=== PATIENT | male | born 1950 | race Caucasian/White ===

== ENCOUNTER → 2017-08-09 13:35 | Outpatient (CLI) | payer MEDICARE, OTHER, SELFPAY ==
--- NOTE | 2017-08-09 13:40 | RAD_ITS ---
STUDY: X-RAY - LUMBOSACRAL SPINE REASON FOR EXAM: Male, 67 years old. Low back pain TECHNIQUE: 7 view(s) of the lumbosacral spine were obtained. COMPARISON: 03/02/2017 FINDINGS: Normal lumbar lordosis. There is no substantial scoliosis. There is normal alignment of the vertebrae. There is multilevel endplate spondylosis of the lumbar vertebrae. There is multi-level degenerative disc disease with multi-level disc space narrowing. There is no subluxation with flexion and extension views. Normal bilateral sacral ala, sacroiliac joints, and visualized sacrum. There is mild atherosclerotic calcification of the abdominal aorta. RAD/L/S Spine Comp/w Bending Views IMPRESSION: Diffuse degenerative changes. No acute bony abnormality. Electronically Signed: Ej Brown DO at 13:47 EDT Tel , Service support ,
== END ==
PROVIDERS: Family Provider Family Medicine; PCP Family Medicine; Visit Provider Orthopaedic Surgery
DX: M54.5 Low back pain (principal)
CPT/HCPCS: 72114

== ENCOUNTER 2017-12-27 06:16 | Day surgery (SDC) | payer MEDICARE, SELFPAY ==
[2017-12-27 06:45] VITALS: BP 138/89; PULSE 77; RESP 16; TEMP 36.4; O2SAT 99; BMI 22.8
--- NOTE | 2017-12-27 08:00 | RAD_ITS ---
STUDY: X-RAY - LUMBAR SPINE REASON FOR EXAM: Male, 67 years old. Joey lumbar decompression. TECHNIQUE: 4 coned-down intraoperative view(s) of the lumbar spine were obtained. COMPARISON: None FINDINGS: The localization apparatus is overlying the posterior aspect of the L5-S1 level. RAD/L/S Spine Min 4 Views IMPRESSION: Localization device is seen along the dorsal aspect of the L5-S1 disc. Electronically Signed: Man Alfredo MD at 13:12 EDT Tel [phone], Service support ,
[2017-12-27] MEDS: Cefazolin 2 GM in 0.9% Normal Saline 100 ML IV (08:21)
--- NOTE | 2017-12-27 09:56 | PCM.IMDPSTOP ---
Problem List (1) Lumbar radiculopathy Status: Acute Immediate Post-Op Note Date of Procedure: 12/27/17 Primary Surgeon/Physician: Kira Beltrán rinkman: Mayur Monte Pre-Operative Diagnosis: Left L5-S1 lumbar radiculopathy Post-Operative Diagnosis: Left L5-S1 lumbar radiculopathy Surgery/Procedure Performed:: Left L5-S1 microdecompression Description of Surgical Findings:: Left L5-S1 lateral recess stenosis Estimated Blood Loss: minimal Specimen's removed: Left L5-S1 ligamentum flavum Drains: none Type of Anesthesia:: General - Admit VTE Documentation VTE Present on Admission: Yes VTE Mechan Device Prophylaxis: SCD's VTE Pharm Prophylaxis ordered?: No Reason prophylaxis not ordered:: Treatment Not Indicated
--- NOTE | 2017-12-27 10:00 | OP.PN_ITS ---
Problem List (1) Lumbar radiculopathy Status: Acute Immediate Post-Op Note Date of Procedure: 12/27/17 Primary Surgeon/Physician: Kira Beltrán outsole beveler: Mayur Monte Pre-Operative Diagnosis: Left L5-S1 lumbar radiculopathy Post-Operative Diagnosis: Left L5-S1 lumbar radiculopathy Surgery/Procedure Performed:: Left L5-S1 microdecompression Description of Surgical Findings:: Left L5-S1 lateral recess stenosis Estimated Blood Loss: minimal Specimen's removed: Left L5-S1 ligamentum flavum Drains: none Type of Anesthesia:: General - Admit VTE Documentation VTE Present on Admission: Yes VTE Mechan Device Prophylaxis: SCD's VTE Pharm Prophylaxis ordered?: No Reason prophylaxis not ordered:: Treatment Not Indicated
--- NOTE | 2017-12-27 10:00 | PCM.OP.BLANK ---
Problem List (1) Lumbar radiculopathy Status: Acute Operative Report Date of Procedure: 12/27/17 Operative Report DATE PERFORMED: 12/27/2017 PREOPERATIVE DIAGNOSIS: Left L5-S1 paracentral disk protrusion with left S1 radiculopathy. POSTOPERATIVE DIAGNOSIS: Left L5-S1 paracentral disk protrusion with left S1 radiculopathy. PROCEDURES: 1. Left L5-S1 microdecompression. 2. Use of intraoperative microscope. 3. Use of intraoperative fluoroscopy. SURGEON: Kira Beltrán MD. INSURANCE APPRAISER: Clifford Monte. ANESTHESIA: Bradford Hutton CRNA. Dr. Granger. ANESTHESIA: General. ESTIMATED BLOOD LOSS: Minimal. DRAINS: None. COMPLICATIONS: None. INDICATIONS FOR PROCEDURE: Mr. Skinner is a 67-year-old male, who presents with back pain and left S1 radiculopathy. His preoperative imaging demonstrated a left L5-S1 paracentral disk protrusion with ligamentum flavum hypertrophy and left S1 lateral recess stenosis. He has failed nonoperative treatment to include physical therapy, epidural steroid injections, and medications. Given he has been refractory to conservative treatment and is significantly affected in his quality of life, a left L5-S1 microdecompression was recommended. The patient agreed to comply with the treatment plan formulated. DESCRIPTION OF PROCEDURE: The patient was correctly identified as Clifford Skinner in the preoperative holding area. Consent was verified. All questions were answered. The risks and benefits of the procedure including, but not limited to pain, infection, bleeding, failure of the operation, need for reoperation, damage to nerve, tendon, vessel, muscle; risk of anesthesia, risk of durotomy, reherniation, risk of paralysis, instability, continued pain, DVT/PE, and blindness were discussed in detail. The patient agreed to comply with the treatment plan. The surgical site was marked. He was taken to operating suite 6, where he underwent general anesthesia by anesthesia colleagues uneventfully. Preoperative antibiotics were initiated. RHIANNA hose and SCDs were placed on bilateral lower extremities for DVT prophylaxis. The patient was then placed prone on the open Elvis frame with a sling. All bony prominences were well padded. His neck was ensured in the neutral position. His back was then sterilely prepped and draped in the usual sterile fashion. A surgical pause was performed to confirm the patient and procedure. The operation was then begun. A spinal needle was placed in the area of L5-S1 interspace. Intraoperative fluoroscopy confirmed the operative level. A midline longitudinal incision was then made down to the subcutaneous tissue to the lumbodorsal fascia. This was cleared off the left-hand side. A full-thickness incision was then made on the left side of midline. A subperiosteal dissection was then performed to dissect the paraspinal musculature off the posterior midline structures. A self retaining retractor was then placed over the L5-S1 interspace. Intraoperative fluoroscopy was obtained to confirm the operative level. The microscope was then brought in for the remainder of the procedure. The inferior edge of the L5 lamina was identified. The ligamentum flavum was lifted up off the leading edge of the S1 lamina and the inferolateral portion of the L5 lamina was resected with a Kerrison rongeur. The ligamentum flavum was then removed. There was noted hypertrophy. The traversing S1 nerve root was noted to be very vascular and hyperemic. The nerve root was then gently retracted medially and a disk protrusion was encountered. The annulus was noted to be intact. A Jamie was then used to trace the shoulder of the S1 nerve root out its foramen with no evidence of residual stenosis. At this point, the decompression was deemed complete. The wound was then thoroughly irrigated. Hemostasis obtained. A Valsalva of 40 mmHg was performed with no evidence of CSF egress. Next, 1% lidocaine with epinephrine mixed with 0.50% Marcaine was placed over the nerve root, approximally 0.5 cc. The fascia was then closed with 0 Vicryl in interrupted [id number] fashion, followed by 2-0 PDS to close the subcutaneous tissue and a running 3-0 Monocryl to close the subcuticular tissue. Dermabond was then applied. A sterile dressing was then placed. The patient tolerated the procedure well. There were no complications. He was then placed supine on the hospital bed, extubated, and transferred to the postanesthesia care unit in stable condition. Needle and sponge counts were correct at the end of the procedure.
[2017-12-27] MEDS: Bupiv/Epi 0.5% Mpf 30 ML Vial (10:05)
--- NOTE | 2017-12-27 10:12 | DCINST_ITS ---
- Discharge Diagnoses Current Active Problems: left lumbar radiculopathy You will use the following diet at home:: Regular Discharge Activity: May not drive while taking narcotic pain medications., - - No bending, twisting or lifting greater than 5-8 pounds for 6 weeks postoperatively. May shower in (days): 5 Weight Bearing Status: Weight bearing as tolerated Lifting Restrictions: no lifting greater than 5-8 pounds Call your doctor if your incision/area has: Continuous Slow Oozing, Sudden Increased Bleeding, Increased Pain/ Swelling, Increased Redness, Foul Smelling Discharge, Swelling at the incision site Call your doctor if you observe: Fever of 101 or Higher, Inability to urinate, Shortness of breath, Swelling in the ankles, Uncontrolled pain Suture Line Care: Avoid Pulling/Pushing, Avoid Pinching/Bending Change Dressing in (Days):: 2 Remove Dressing in (days):: 2 Cleanse incision/area with: Do not get Incision Wet, - - Do not get incision wet for 5 days after surgery. NO soaking for 1 month. change the dressing daily with a dry piece of gauze and tape after postoperative day 2. Allergies/Adverse Reactions: Allergies No Known Allergies Allergy (Verified 12/06/17 08:57) Medications to take at Discharge gabapentin 300 mg capsule 300 mg PO TID 11/29/17 Percocet 5-325 5 - 325 mg PO Q4H PRN PRN MDD 12 12/27/17 Primary Care Physician: Nikhil Coto MD [Primary Care Provider] - Please follow up with your Primary Care Physician in: 2 weeks after surgery for wound check Test Results: Test results from this visit will be discussed in further detail at your follow- up appointment, if applicable. Please Follow Up With: Kira Beltrán MD When: 6 weeks after surgery
--- NOTE | 2017-12-27 10:14 | PCM.DC.SUM ---
Discharge Date and Diagnosis - Problem List Patient Problems: Active and Suspected Problems (Last Updated 08/09/17 @ 14:46 by Eli Phillips) Lumbar radiculopathy (Acute) Date of Admission: 12/27/17 Date of Discharge: 12/27/17 - Primary Discharge Diagnosis lumbar radiculopathy Hospital Course and Treatment Imaging Results: 12/27/17 08:00 O.R. Fluoro for C-Arm [RAD] Routine Spine 1 View Any Level [RAD] Routine Operations: - - left L5-S1 microdecompression Summary of Care Provided: The patient is a 67 year old M [] Discharge Activity: May not drive while taking narcotic pain medications., - - No bending, twisting or lifting greater than 5-8 pounds for 6 weeks postoperatively. May shower in (days): 5 Weight Bearing Status: Weight bearing as tolerated Call your doctor if your incision/area has: Continuous Slow Oozing, Sudden Increased Bleeding, Increased Pain/ Swelling, Increased Redness, Foul Smelling Discharge, Swelling at the incision site Call your doctor if you observe: Fever of 101 or Higher, Inability to urinate, Shortness of breath, Swelling in the ankles, Uncontrolled pain Suture Line Care: Avoid Pulling/Pushing, Avoid Pinching/Bending Change Dressing in (Days):: 2 Remove Dressing in (days):: 2 Cleanse incision/area with: Do not get Incision Wet, - - Do not get incision wet for 5 days after surgery. NO soaking for 1 month. change the dressing daily with a dry piece of gauze and tape after postoperative day 2. Home Medications: Medications to take at Discharge gabapentin 300 mg capsule 300 mg PO TID 11/29/17 Percocet 5-325 5 - 325 mg PO Q4H PRN PRN MDD 12 12/27/17 Primary Care Physician: Nikhil Coto MD [Primary Care Provider] - Please follow up with your Primary Care Physician in: 2 weeks after surgery for wound check Please Follow Up With: Kira Beltrán MD When: 6 weeks after surgery Medical Necessity - Tobacco Use Smoking Status: Former smoker Meaningful Use Info Meaningful Use Diagnoses (Choose all that apply): None applicable
[2017-12-27 10:30] VITALS: BP 138/89; BP 142/89; PULSE 83; RESP 16; TEMP 36.3; O2SAT 94
[2017-12-27 10:43] VITALS: BP 136/90; BP 138/89; PULSE 74; RESP 16; O2SAT 98
[2017-12-27 10:44] VITALS: BP 138/89; BP 141/91; PULSE 72; RESP 16; TEMP 36.9; O2SAT 99
--- NOTE | 2017-12-27 10:50 | PCM.PN.SRG ---
Patient Problems: Active and Suspected Problems (Last Updated 08/09/17 @ 14:46 by Eli Phillips) Lumbar radiculopathy (Acute) Subjective: Patient doing well. Denies pain. Objective: Alert in PACU. 5/5 strength bilateral lower extremities. Negative SLR bilaterally. Dressing clean and dry. - Physical Exam Vital Signs Temp Pulse Resp BP Pulse Ox 98.5 F 72 16 141/91 H 99 12/27/17 10:44 12/27/17 10:44 12/27/17 10:44 12/27/17 10:44 12/27/17 10:44 Oxygen Delivery Method Room Air Weight: 167 lb 15.876 oz Body Mass Index (BMI) 22.8 Intake and Output for Last 24 Hours 12/25/17 12/26/17 12/27/17 23:59 23:59 23:59 Intake Total 1400 / 1400 Balance 1400 / 1400 Laboratory Tests Past 24 Hrs 12/27/17 06:40 Blood Type A POSITIVE Antibody Screen NEGATIVE Medical Necessity - Tobacco Use Smoking Status: Former smoker Assessment/Plan All Active Problems (Last Updated 08/09/17 @ 14:46 by Eli Phillips) Lumbar radiculopathy (Acute) 1. status post left L5-S1 microdecompression today. Patient doing well. Plan for discharge today after voiding, ambulating and tolerating orals. Discharge instructions provided to patient's sister. In compliance with the laws of the [facility] Medical Board of [place], the following conditions have been met for extending the dose or duration of opioid pain medication for the treatment of acute pain. Diagnosis: 1. Lumbar radiculopathy 2. Pain following surgery or procedure (ICD10 G89.18) 7 day limit exceeded due to pain that is expected to persist longer than 7 days. Pathology of pain: post surgical pain 30 MED average exceeded due to: left L5-S1 microdecompression Reason for exceeding the 30 MED average: Pain after orthopedic surgery not yet acceptably controlled by non-opioid medication. This is the lowest dose need for his medical condition. The patient's account was reviewed on the [place] [employer] [facility] Reporting System: [employer]. Their controlled substance medication history was found to be aligned with health and medication history. Patient has had no adverse outcomes with this medication.
--- NOTE | 2017-12-27 10:55 | PN.SURG_ITS ---
Patient Problems: Active and Suspected Problems (Last Updated 08/09/17 @ 14:46 by Eli Phillips) Lumbar radiculopathy (Acute) Subjective: Patient doing well. Denies pain. Objective: Alert in PACU. 5/5 strength bilateral lower extremities. Negative SLR bilaterally. Dressing clean and dry. - Physical Exam Vital Signs Temp Pulse Resp BP Pulse Ox 98.5 F 72 16 141/91 H 99 12/27/17 10:44 12/27/17 10:44 12/27/17 10:44 12/27/17 10:44 12/27/17 10:44 Oxygen Delivery Method Room Air Weight: 167 lb 15.876 oz Body Mass Index (BMI) 22.8 Intake and Output for Last 24 Hours 12/25/17 12/26/17 12/27/17 23:59 23:59 23:59 Intake Total 1400 / 1400 Balance 1400 / 1400 Laboratory Tests Past 24 Hrs 12/27/17 06:40 Blood Type A POSITIVE Antibody Screen NEGATIVE Medical Necessity - Tobacco Use Smoking Status: Former smoker Assessment/Plan All Active Problems (Last Updated 08/09/17 @ 14:46 by Eli Phillips) Lumbar radiculopathy (Acute) 1. status post left L5-S1 microdecompression today. Patient doing well. Plan for discharge today after voiding, ambulating and tolerating orals. Discharge instructions provided to patient's sister. In compliance with the laws of the [facility] Medical Board of [place], the following conditions have been met for extending the dose or duration of opioid pain medication for the treatment of acute pain. Diagnosis: 1. Lumbar radiculopathy 2. Pain following surgery or procedure (ICD10 G89.18) 7 day limit exceeded due to pain that is expected to persist longer than 7 days. Pathology of pain: post surgical pain 30 MED average exceeded due to: left L5-S1 microdecompression Reason for exceeding the 30 MED average: Pain after orthopedic surgery not yet acceptably controlled by non-opioid medication. This is the lowest dose need for his medical condition. The patient's account was reviewed on the [place] [employer] [facility] Reporting System: [employer]. Their controlled substance medication history was found to be aligned with health and medication history. Patient has had no adverse outcomes with this medication.
[2017-12-27 11:35] VITALS: BP 138/89; BP 168/95; PULSE 74; RESP 18; TEMP 36.7; O2SAT 98
== END 2017-12-27 11:45 | disposition home or self-care (01) ==
LOC: SDC 06:17 → AC 06:18
PROVIDERS: Family Provider Family Medicine; PCP Family Medicine; Visit Provider Orthopaedic Surgery
PROC: (CPT 63030; principal; 2017-12-27 07:30)
DX: M51.17 Intervertebral disc disorders with radiculopathy, lumbosacral region (principal); I45.10 Unspecified right bundle-branch block; K21.9 Gastro-esophageal reflux disease without esophagitis; Z87.19 Personal history of other diseases of the digestive system; Z85.46 Personal history of malignant neoplasm of prostate; Z98.1 Arthrodesis status; Z87.891 Personal history of nicotine dependence
CPT/HCPCS: 63047; 63048; 72110; 76000; 86850; 86900; J7120; J2405

== ENCOUNTER → 2018-03-14 12:43 | Outpatient (CLI) | payer MEDICARE, SELFPAY ==
--- NOTE | 2018-03-14 12:45 | RAD_ITS ---
HISTORY: f/u on back surgery 12/27/2017 COMPARISON: 08/09/2017 FINDINGS: XR Spine Lumbar Min 4 Views with flexion and extension 4 views obtained with lateral flexion and extension views. Mild lumbar levoscoliosis, unchanged. Lumbar vertebra are normal in height. No fracture or acute disease. The lumbar disc space heights are preserved. Multilevel mild endplate spurring. With flexion and extension, limited mobility but no abnormal motion or spondylolisthesis. As correlated with previous, lower lumbar facet joint arthritis. Degenerative change with marginal sclerosis of the left SI joint. RAD/L/S Spine Min 4 Views IMPRESSION: 1. No fracture, instability, or acute disease. 2. Lumbar spine mild scoliosis with mild degenerative change. 3. Left SI joint degenerative arthritis. at [id number] Reported and signed by: Juan Ramon Worley MD Electronically Signed: Juan Ramon Worley, at 7:00 EST Tel , Service support ,
--- OUTSIDE RECORDS SUMMARY | 2018-04-30 15:19 | XMS RPT_ITS ---
:1950 Author Organization OHIP Care Team Providers Name Role Phone Kira Beltrán Attending Unavailable Nikhil Coto Referring Unavailable Kira Beltrán Attending Unavailable Nikhil Coto Referring Unavailable Nikhil Coto Primary Care Unavailable Kira Beltrán Attending Unavailable Nikhil Coto Referring Unavailable Kira Beltrán Attending Unavailable Beltrán, Kira Referring Unavailable Furness, Nikhil Primary Care Unavailable Beltrán, Kira Attending Unavailable Beltrán, Kira Referring Unavailable Furness, Nikhil Primary Care Unavailable Beltrán, Kira Attending Unavailable Furness, Nikhil Referring Unavailable Furness, Nikhil Primary Care Unavailable Beltrán, Kira Attending Unavailable Beltrán, Kira Referring Unavailable Furness, Nikhil Primary Care Unavailable Beltrán, Kira Consulting Unavailable Beltrán, Kira Attending Unavailable Beltrán, Kira Referring Unavailable Furness, Nikhil Primary Care Unavailable Beltrán, Kira Attending Unavailable Furness, Nikhil Referring Unavailable Furness, Nikhil Primary Care Unavailable Evans, Eusebio W Attending Unavailable Furness, Nikhil T Primary Care Unavailable Evans, Eusebio Jung Admitting Unavailable Evans, Eusebio Jung Attending Unavailable Furness, Nikhil T Primary Care Unavailable Evans, Eusebio Jung Admitting Unavailable Evans, Eusebio Jung Attending Unavailable Furness, Nikhil T Primary Care Unavailable Evans, Eusebio Jung Attending Unavailable Furness, Nikhil T Primary Care Unavailable Furness, Nikhil T Attending Unavailable Furness, Nikhil T Primary Care Unavailable Furness, Nikhil T Primary Care Unavailable Ricardo, Isaura Gray Admitting Unavailable Ricardo, Isaura Gray Attending Unavailable Furness, Nikhil T Attending Unavailable Furness, Nikhil T Primary Care Unavailable Furness, Nikhil T Admitting Unavailable Furness, Nikhil T Attending Unavailable Furness, Nikhil T Primary Care Unavailable Furness, Nikhil T Admitting Unavailable Furness, Nikhil T Attending Unavailable Furness, Nikhil T Primary Care Unavailable PROBLEMS PROBLEMS DATE TYPE CONDITION / CODE ATTENDING STATUS SOURCE 03/14/2018 Unknown M54.16 - Kira Beltrán Active [place] Radiculopathy, [facility] lumbar region / Hospital M54.16(ICD-10) Repository 08/09/2017 Unknown M54.5 - Low back Kira Beltrán Active [place] pain / [facility] M54.5(ICD-10) Hospital Repository PROCEDURES PROCEDURES No Procedure Records FoundRESULTS RESULTS ORTHOPEDIC VISIT Observed: 03/25/2018 Status: F Source: [place] REPORT 2:40 PM [facility] REPOSITORY [facility] [address] [address] OFFICE VISIT Date of Service: 03/14/18 MR#: [id number] Acct: [id number] Name: ISAURA BUCK Rep #: [id number] : 1950 Provider: Kira Beltrán MD Age/Sex: 67/M Location: [facility] [place] [place].[facility] Status: Signed Intake Intake Visit Reasons: LOW BACK Allergies No Known Allergies Allergy (Verified 01/24/18 13:07) Medications gabapentin 300 mg capsule 300 mg PO TID 11/29/17 [History Confirmed 12/06/17] Percocet 5-325 5 - 325 mg PO Q4H PRN PRN #45 tab MDD 12 12/27/17 [Rx] PFSH Medical History Prostate cancer (Acute) Surgical History H/O cervical spine surgery (Acute) h/o bunionectomy (Acute) Family History Brother Cancer Mother Cancer COPD (chronic obstructive pulmonary disease) Social History Smoking Status: Former smoker HPI LOW BACK: Details: ISAURA BUCK returns today 3 months status post left L5-S1 microdecompression 12/27/2017. He is 80% improved. He has some left lateral calf ache in the morning. He is improved during the day. He has had no physical therapy. He has no back pain. He denies fevers or chills. He did not complete PT due to his daughter needing his vehicle. Ortho Exam Spine Neuro: Yes Straight Leg Raise (negative bilaterally) General: alert, oriented x3 Capillary Refill <2sec: Yes Gait: normal gait, other (heel and toe walk intact) Motor: strength 5/5 throughout Sensory Exam: no sensory deficits noted DTR's: Rt Patellar: 2+, Lt Patellar: 2+, Rt Ankle: 2+, Lt Ankle: 2+ Coordination: tandem gait normal SPINE TESTING CERVICAL THORACIC LUMBAR Braggards: Negative Musculoskeletal General: Yes normal gait Thoracic/Lumbar Spine: thoraco-lumbar ROM normal, surgical scar(s) present, straight leg raise negative bilaterally Strength 0=absent - 5=normal R Hip Flexor (L1-3): 5, L Hip Flexor (L1-3): 5, R Quadriceps (L2-4): 5, L Quadriceps (L2-4): 5, R Anterior Tibialis (L4-5): 5, L Anterior Tibialis (L4-5): 5, R Hamstrings (L5-S1): 5, L Hamstrings (L5-S1): 5, GS (S1): 5, L GS (S1): 5, R Peroneals (S1): 5, L Peroneals (S1): 5 Assessment AND Plan Problems 1. S/P lumbar microdiscectomy Z98.890 Plan Imaging: XR lumbar spine 03/14/2018 reveals diffuse spondylosis without listhesis I/R/P: 1. status post left L5-S1 microdecompression 12/27/2017 2. chronic pain, back Mr. Buck is doing well postop. He will initiate physical therapy when able. He will continue to increase his activities as tolerated. Follow up in 3 months or sooner if issues arise. Plan of care discussed. All questions answered. He is in understanding. Orders Orders: Coding Level of Care Code Off vis,est,level 4 Diagnoses S/P lumbar microdiscectomy Z98.890 03/25/18 1440 <Electronically signed by Kira Beltrán MD> Date Kira Beltrán MD Cosigner Signature: Date (if applicable) CC: Jane Hicks MD L/S SPINE MIN 4 Observed: 03/14/2018 Status: F Source: [place] VIEWS 12:45 PM [facility] REPOSITORY [facility] Imaging Services [address] [place] [address] L/S Spine Min 4 Views MR#: [id number] Acct: [id number] Name: ISAURA BUCK Rep #: [id number] : 1950 M 67 From: Juan Ramon Worley MD PCP: Nikhil Coto MD Status: REG CLI Study: L/S Spine Min 4 Views Date of Exam: 03/14/18 Exam# [id number] Ordering Dr: Kira Beltrán MD HISTORY: f/u on back surgery 12/27/2017 COMPARISON: 08/09/2017 FINDINGS: XR Spine Lumbar Min 4 Views with flexion and extension 4 views obtained with lateral flexion and extension views. Mild lumbar levoscoliosis, unchanged. Lumbar vertebra are normal in height. No fracture or acute disease. The lumbar disc space heights are preserved. Multilevel mild endplate spurring. With flexion and extension, limited mobility but no abnormal motion or spondylolisthesis. As correlated with previous, lower lumbar facet joint arthritis. Degenerative change with marginal sclerosis of the left SI joint. RAD/L/S Spine Min 4 Views IMPRESSION: 1. No fracture, instability, or acute disease. 2. Lumbar spine mild scoliosis with mild degenerative change. 3. Left SI joint degenerative arthritis. at [id number] Reported and signed by: Juan Ramon Worley MD Electronically Signed: Juan Ramon Worley, at 7:00 EST Tel , Service support , CC: Kira Beltrán MD; Nikhil Coto MD Director Institution: Signed ORTHOPEDIC VISIT Observed: 01/29/2018 Status: F Source: [place] REPORT 1:59 PM [facility] REPOSITORY [facility] [address] [place] [address] OFFICE VISIT Date of Service: 01/24/18 MR#: [id number] Acct: [id number] Name: ISAURA BUCK Rep #: [id number] : 1950 Provider: Kira Beltrán MD Age/Sex: 67/M [place] [facility] [place] Signed Intake Intake Visit Reasons: low back Allergies No Known Allergies Allergy (Verified 01/24/18 13:07) Medications gabapentin 300 mg capsule 300 mg PO TID 11/29/17 [History Confirmed 12/06/17] Percocet 5-325 5 - 325 mg PO Q4H PRN PRN #45 tab MDD 12 12/27/17 [Rx] PFSH Medical History Prostate cancer (Acute) Surgical History H/O cervical spine surgery (Acute) h/o bunionectomy (Acute) Family History Brother Cancer Mother Cancer COPD (chronic obstructive pulmonary disease) Social History Smoking Status: Former smoker HPI low back: Details: ISAURA BUCK returns today in follow up 6 weeks s/p left L5-S1 microdecompression dos 12/27/17. Patient states that he is doing well and has minimal pain. He has achiness in his back at times. Patient is taking vicodin for chronic pain, but he takes that mostly for his headaches. Patient notes that his radicular pain into his left leg has improved. He has the radiating pain into his calf at times. He feels 95% improved from preop. He denies fevers or chills or bowel or bladder issues. Denies numbness, tingling or other associated symptoms. ROS Const Reports system reviewed and no additional complaints, except as docu Eyes Reports system reviewed and no additional complaints, except as docu ENT Reports system reviewed and no additional complaints, except as docu Card Reports system reviewed and no additional complaints, except as docu Resp Reports system reviewed and no additional complaints, except as docu GI Reports system reviewed and no additional complaints, except as docu Reports system reviewed and no additional complaints, except as docu Musc Reports back pain Skin/Breast Reports system reviewed and no additional complaints, except as docu Neuro Yes system reviewed and no additional complaints, except as docu Psych Reports system reviewed and no additional complaints, except as docu Endo Reports system reviewed and no additional complaints, except as docu Ortho Exam Spine Neuro: Yes Straight Leg Raise (negative bilaterally) General: alert, oriented x3 Skin: Yes healed Capillary Refill <2sec: Yes Gait: normal gait, other (heel and toe walk) Motor: strength 5/5 throughout Sensory Exam: no sensory deficits noted DTR's: Rt Patellar: 2+, Lt Patellar: 2+, Rt Ankle: 2+, Lt Ankle: 2+ Plantar Reflexes: Downgoing: bilateral Coordination: tandem gait normal SPINE TESTING CERVICAL THORACIC LUMBAR SLR: Negative Musculoskeletal General: Yes normal gait Thoracic/Lumbar Spine: straight leg raise negative bilaterally, thoraco-lumbar ROM limited Strength 0=absent - 5=normal R Hip Flexor (L1-3): 5, L Hip Flexor (L1-3): 5, R Quadriceps (L2-4): 5, L Quadriceps (L2-4): 5, R Anterior Tibialis (L4-5): 5, L Anterior Tibialis (L4-5): 5, R Hamstrings (L5-S1): 5, L Hamstrings (L5-S1): 5, GS (S1): 5, L GS (S1): 5, R Peroneals (S1): 5, L Peroneals (S1): 5 Assessment AND Plan Problems 1. S/P laminectomy Z98.890 Plan I/R/P: 1. status post left L5-S1 microdecompression 12/27/2017 2. chronic pain Mr. Buck is doing well after surgery. At this time, will initiate physical therapy. He may gradually increase his activities as tolerated. Follow up in 6 weeks or sooner if issues arise. Plan of care discussed. All questions answered. He is in understanding. Coding Level of Care Code Global Post Op Diagnoses S/P laminectomy Z98.890 01/29/18 1359 <Electronically signed by Kira Beltrán MD> Date Kira Beltrán MD Cosigner Signature: Date (if applicable) CC: Jane Hicks MD OPERATIVE REPORT Observed: 12/27/2017 Status: F Source: [place] 8:42 PM [facility] REPOSITORY [facility] Medical Records Department [address] [place] [id number] Operative Report 12/27/17 1000 MR#: [id number] Acct: [id number] Name: ISAURA BUCK Rep #: [id number] : 1950 67 From: Kira Beltrán MD PCP: Nikhil Coto MD Status: [facility] Location: [facility] [place] ADDENDUM by Kira Beltrán MD on 12/27/17 at 2042 Code Visit ADDENDUM: Please note a left L5-S1 medial facetectomy and foraminotomy was performed additionally. 12/27/172041 <Electronically signed by Kira Beltrán MD> Date Kira Beltrán MD cc: Kira Beltrán MD; Nikhil Coto MD * Signed Problem List (1) Lumbar radiculopathy Status: Acute Operative Report Date of Procedure: 12/27/17 Operative Report DATE PERFORMED: 12/27/2017 PREOPERATIVE DIAGNOSIS: Left L5-S1 paracentral disk protrusion with left S1 radiculopathy. POSTOPERATIVE DIAGNOSIS: Left L5-S1 paracentral disk protrusion with left S1 radiculopathy. PROCEDURES: 1. Left L5-S1 microdecompression. 2. Use of intraoperative microscope. 3. Use of intraoperative fluoroscopy. SURGEON: Kira Beltrán MD. POOL TABLE OPERATOR: Isaura Monte. ANESTHESIA: Bradford Hutton CRNA. Dr. Granger. ANESTHESIA: General. ESTIMATED BLOOD LOSS: Minimal. DRAINS: None. COMPLICATIONS: None. INDICATIONS FOR PROCEDURE: Mr. Buck is a 67-year-old male, who presents with back pain and left S1 radiculopathy. His preoperative imaging demonstrated a left L5-S1 paracentral disk protrusion with ligamentum flavum hypertrophy and left S1 lateral recess stenosis. He has failed nonoperative treatment to include physical therapy, epidural steroid injections, and medications. Given he has been refractory to conservative treatment and is significantly affected in his quality of life, a left L5-S1 microdecompression was recommended. The patient agreed to comply with the treatment plan formulated. DESCRIPTION OF PROCEDURE: The patient was correctly identified as Isaura Buck in the preoperative holding area. Consent was verified. All questions were answered. The risks and benefits of the procedure including, but not limited to pain, infection, bleeding, failure of the operation, need for reoperation, damage to nerve, tendon, vessel, muscle; risk of anesthesia, risk of durotomy, reherniation, risk of paralysis, instability, continued pain, DVT/PE, and blindness were discussed in detail. The patient agreed to comply with the treatment plan. The surgical site was marked. He was taken to operating suite 6, where he underwent general anesthesia by anesthesia colleagues uneventfully. Preoperative antibiotics were initiated. RHIANNA hose and SCDs were placed on bilateral lower extremities for DVT prophylaxis. The patient was then placed prone on the open Elvis frame with a sling. All bony prominences were well padded. His neck was ensured in the neutral position. His back was then sterilely prepped and draped in the usual sterile fashion. A surgical pause was performed to confirm the patient and procedure. The operation was then begun. A spinal needle was placed in the area of L5-S1 interspace. Intraoperative fluoroscopy confirmed the operative level. A midline longitudinal incision was then made down to the subcutaneous tissue to the lumbodorsal fascia. This was cleared off the left-hand side. A full-thickness incision was then made on the left side of midline. A subperiosteal dissection was then performed to dissect the paraspinal musculature off the posterior midline structures. A self retaining retractor was then placed over the L5-S1 interspace. Intraoperative fluoroscopy was obtained to confirm the operative level. The microscope was then brought in for the remainder of the procedure. The inferior edge of the L5 lamina was identified. The ligamentum flavum was lifted up off the leading edge of the S1 lamina and the inferolateral portion of the L5 lamina was resected with a Kerrison rongeur. The ligamentum flavum was then removed. There was noted hypertrophy. The traversing S1 nerve root was noted to be very vascular and hyperemic. The nerve root was then gently retracted medially and a disk protrusion was encountered. The annulus was noted to be intact. A [place] was then used to trace the shoulder of the S1 nerve root out its foramen with no evidence of residual stenosis. At this point, the decompression was deemed complete. The wound was then thoroughly irrigated. Hemostasis obtained. A Valsalva of 40 mmHg was performed with no evidence of CSF egress. Next, 1% lidocaine with epinephrine mixed with 0.50% Marcaine was placed over the nerve root, approximally 0.5 cc. The fascia was then closed with 0 Vicryl in interrupted [id number] fashion, followed by 2-0 PDS to close the subcutaneous tissue and a running 3-0 Monocryl to close the subcuticular tissue. Dermabond was then applied. A sterile dressing was then placed. The patient tolerated the procedure well. There were no complications. He was then placed supine on the hospital bed, extubated, and transferred to the postanesthesia care unit in stable condition. Needle and sponge counts were correct at the end of the procedure. 12/27/17 1007 <Electronically signed by Kira Beltrán MD> Date Kira Beltrán MD CC: Kira Beltrán MD; Nikhil Coto MD Signed DISCHARGE SUMMARY Observed: 12/27/2017 Status: F Source: [place] 10:16 AM [facility] REPOSITORY [facility] Medical Records Department [address] [place] [address] Discharge Summary 12/27/17 1014 MR#: [id number] Acct: [id number] Name: ISAURA BUCK Rep #: [id number] : 1950 67 From: Kira Beltrán MD PCP: Nikhil Coto MD Status: [facility] Y Location: [place] [address] Discharge Date and Diagnosis - Problem List Patient Problems: Active and Suspected Problems (Last Updated 08/09/17 @ 14:46 by Eli Phillips) Lumbar radiculopathy (Acute) Date of Admission: 12/27/17 Date of Discharge: 12/27/17 - Primary Discharge Diagnosis lumbar radiculopathy Hospital Course and Treatment Imaging Results: 12/27/17 08:00 O.R. Fluoro for C-Arm [RAD] Routine Spine 1 View Any Level [RAD] Routine Operations: - - left L5-S1 microdecompression Summary of Care Provided: The patient is a 67 year old M [] Discharge Activity: May not drive while taking narcotic pain medications., - - No bending, twisting or lifting greater than 5-8 pounds for 6 weeks postoperatively. May shower in (days): 5 Weight Bearing Status: Weight bearing as tolerated Call your doctor if your incision/area has: Continuous Slow Oozing, Sudden Increased Bleeding, Increased Pain/ Swelling, Increased Redness, Foul Smelling Discharge, Swelling at the incision site Call your doctor if you observe: Fever of 101 or Higher, Inability to urinate, Shortness of breath, Swelling in the ankles, Uncontrolled pain Suture Line Care: Avoid Pulling/Pushing, Avoid Pinching/Bending Change Dressing in (Days):: 2 Remove Dressing in (days):: 2 Cleanse incision/area with: Do not get Incision Wet, - - Do not get incision wet for 5 days after surgery. NO soaking for 1 month. change the dressing daily with a dry piece of gauze and tape after postoperative day 2. Home Medications: Medications to take at Discharge gabapentin 300 mg capsule 300 mg PO TID 11/29/17 Percocet 5-325 5 - 325 mg PO Q4H PRN PRN MDD 12 12/27/17 Primary Care Physician: Nikhil Coto MD [Primary Care Provider] - Please follow up with your Primary Care Physician in: 2 weeks after surgery for wound check Please Follow Up With: Kira Beltrán MD When: 6 weeks after surgery Medical Necessity - Tobacco Use Smoking Status: Former smoker Meaningful Use Info Meaningful Use Diagnoses (Choose all that apply): None applicable 12/27/17 1016 <Electronically signed by Kira Beltrán MD> Date Kira Beltrán MD Cosigner Signature (if applicable): Date CC: Kira Beltrán MD; Nikhil Coto MD Signed DISCHARGE INSTRUCTION Observed: 12/27/2017 Status: F Source: [place] 10:14 AM [facility] REPOSITORY [facility] Medical Records Department [address] [place] [address] Instructions for Home/Discharge Instructions 12/27/17 1008 MR#: [id number] Acct: [id number] Name: HEBERISAURA Demetri Rep #: [id number] : 1950 67 From: Kira Beltrán MD PCP: Nikhil Coto MD Status: REG SDC - Discharge Diagnoses Current Active Problems: left lumbar radiculopathy You will use the following diet at home:: Regular Discharge Activity: May not drive while taking narcotic pain medications., - - No bending, twisting or lifting greater than 5-8 pounds for 6 weeks postoperatively. May shower in (days): 5 Weight Bearing Status: Weight bearing as tolerated Lifting Restrictions: no lifting greater than 5-8 pounds Call your doctor if your incision/area has: Continuous Slow Oozing, Sudden Increased Bleeding, Increased Pain/ Swelling, Increased Redness, Foul Smelling Discharge, Swelling at the incision site Call your doctor if you observe: Fever of 101 or Higher, Inability to urinate, Shortness of breath, Swelling in the ankles, Uncontrolled pain Suture Line Care: Avoid Pulling/Pushing, Avoid Pinching/Bending Change Dressing in (Days):: 2 Remove Dressing in (days):: 2 Cleanse incision/area with: Do not get Incision Wet, - - Do not get incision wet for 5 days after surgery. NO soaking for 1 month. change the dressing daily with a dry piece of gauze and tape after postoperative day 2. Allergies/Adverse Reactions: Allergies No Known Allergies Allergy (Verified 12/06/17 08:57) Medications to take at Discharge gabapentin 300 mg capsule 300 mg PO TID 11/29/17 Percocet 5-325 5 - 325 mg PO Q4H PRN PRN MDD 12 12/27/17 Primary Care Physician: Nikhil Coto MD [Primary Care Provider] - Please follow up with your Primary Care Physician in: 2 weeks after surgery for wound check Test Results: Test results from this visit will be discussed in further detail at your follow-up appointment, if applicable. Please Follow Up With: Kira Beltrán MD When: 6 weeks after surgery 12/27/17 1014 <Electronically signed by Kira Beltrán MD> Date Kira Beltrán MD CC: Nikhil Coto MD TYPE AND SCREEN Collected: 12/27/2017 Status: F Source: [place] 6:40 AM [facility] REPOSITORY Order Comment: Reason for Type AND Screen/Red Cells: SURGERY TYPE CODE TESTS RESULT OUT OF RANGE REFERENCE UNITS LAB B10.0800 A Normal BLOOD TYPE GEL POSITIVE LAB B100.4000 Normal Antibody NEGATIVE Screen Performed By: #### B101.7450 #### [facility] [address] [place], [address] L/S SPINE MIN 4 Observed: 12/26/2017 Status: F Source: [place] VIEWS 11:17 PM [facility] REPOSITORY [facility] Imaging Services [address] [place] [address] L/S Spine Min 4 Views MR#: [id number] Acct: [id number] Name: ISAURA BUCK Rep #: [id number] : 1950 M 67 From: Man Alfredo MD PCP: Nikhil Coto MD Status: [facility] Study: L/S Spine Min 4 Views Date of Exam: 12/27/17 Exam# [id number] Ordering Dr: Kira Beltrán MD STUDY: X-RAY - LUMBAR SPINE REASON FOR EXAM: Male, 67 years old. Joey lumbar decompression. TECHNIQUE: 4 coned-down intraoperative view(s) of the lumbar spine were obtained. COMPARISON: None FINDINGS: The localization apparatus is overlying the posterior aspect of the L5-S1 level. RAD/L/S Spine Min 4 Views IMPRESSION: Localization device is seen along the dorsal aspect of the L5-S1 disc. Electronically Signed: Man Alfredo MD at 13:12 EDT Tel [phone], Service support , CC: Kira Beltrán MD; Nikhil Coto MD Director Institution: Signed ORTHOPEDIC VISIT Observed: 12/01/2017 Status: F Source: [place] REPORT 8:16 PM [facility] REPOSITORY [facility] Orthopa[facility]ics AND Sports Medicine [address] [place] [address] [address] [place] [address] OFFICE VISIT Date of Service: 11/29/17 MR#: [id number] Acct: [id number] Name: ISAURA BUCK Rep #: [id number] : 1950 Provider: Kira Beltrán MD Age/Sex: 67/M Location: [facility] [place] [place] [place] Status: Signed Intake Intake Visit Reasons: Low back pain Is patient in pain?: Yes Allergies No Known Allergies Allergy (Verified 11/29/17 14:18) Medications hydrocodone 5 mg-acetaminophen 325 mg tablet 1 tab PO Q6H PRN 08/09/17 [History Confirmed 08/09/17] gabapentin 300 mg capsule 300 mg PO TID 11/29/17 [History Confirmed 11/29/17] PFSH Medical History Prostate cancer (Acute) Surgical History H/O cervical spine surgery (Acute) h/o bunionectomy (Acute) Family History Brother Cancer Mother Cancer COPD (chronic obstructive pulmonary disease) Social History Smoking Status: Former smoker HPI Low back pain: Details: ISAURA BUCK returns today in anticipation for lumbar surgery. He continues to have back pain 20% and left left buttock, posterior thigh and calf and lateral foot pain and paresthesias 80%. Patients pain increases with carrying greater than 10 pounds, in the morning and sitting or car rides. It is improved with standing on flat surfaces, hot tub, and massage. He denies fevers or chills or bowel or bladder issues. He has had no recent lumbar injections. Patient saw Dr Hicks recently and had an injection into his cervical spine. He denies any signs or symptoms of urinary tract infeciton. He denies nicotine use. He takes gabapentin and norco chronically. Ortho Exam Spine Neuro: Yes Straight Leg Raise (negative today bilaterally) and Allan's (negative bilaterally) General: alert, oriented x3 Gait: normal gait, other (able to heel and toe walk) Motor: strength 5/5 throughout Sensory Exam: other (decreased in the left posterior leg) DTR's: Rt Patellar: 2+, Lt Patellar: 2+, Rt Ankle: 2+, Lt Ankle: 1+ Coordination: tandem gait normal SPINE TESTING CERVICAL THORACIC LUMBAR SLR: Negative Musculoskeletal General: Yes normal posture and normal gait Cervical Spine: cervical ROM normal Thoracic/Lumbar Spine: straight leg raise negative bilaterally, paraspinal tenderness, pain with thoraco-lumbar ROM, thoraco-lumbar ROM limited Strength 0=absent - 5=normal R Hip Flexor (L1-3): 5, L Hip Flexor (L1-3): 5, R Quadriceps (L2-4): 5, L Quadriceps (L2-4): 5, R Anterior Tibialis (L4-5): 5, L Anterior Tibialis (L4-5): 5, R Hamstrings (L5-S1): 5, L Hamstrings (L5-S1): 5, GS (S1): 5, L GS (S1): 5, R Peroneals (S1): 5, L Peroneals (S1): 5 Assessment AND Plan 1. Lumbar radiculopathy M54.16 Plan Imaging: XR lumbar spine reveals diffuse spondylosis MRI lumbar spine 03/02/2017 reveals diffuse spondylosis with left L5-S1 lateral recess stenosis and displacement of the left S1 nerve root I/R/P: 1. back pain 2. left leg pain 3. nicotine use, recent quit 4. prostate cancer with radiation seeds 5. history of cervical fusion 03/2013 Mr. Buck presents with back pain and left lumbar radiculopathy in the setting of left L5-S1 lateral recess stenosis secondary to paracentral disc protrusion. He has failed nonoperative treatment, to include physical therapy, epidural steroid injection and medications. Therefore we recommend surgical intervention, to include a left L5-S1 microdecompression. Over 30 minutes was spent in consultation with this patient. Risks, benefits, and alternatives to surgery were discussed. Risks discussed include but are not limited to catastrophic complications of , blindness, risks of anesthesia, blood loss, infection, nerve injury, dural tear, instability, failure to relieve symptoms, worsening of symptoms, need for further surgery, paralysis and DVT/PE. He has been cleared by his primary care physician, Dr. Nikhil Coto, as low risk. All questions answered. The procedure was discussed in detail with the use of plastic models. Consent was signed. The patient verbalized understanding and agreed to comply with the treatment plan formulated. Plan of care discussed. All questions answered. The patient verbalized understanding of the disease process and agreed to the treatment plan formulated for this visit. Coding Level of Care Code Off vis,est,level 4 Diagnoses Lumbar radiculopathy M54.16 12/01/172015 <Electronically signed by Kira Beltrán MD> Date Kira Leigh Ann [facility] Signature: Date (if applicable) CC: Jane Hicks MD; Nikhil Coto MD Observed: 11/22/2017 Status: F Source: [facility] 5:51 PM [facility] REPOSITORY Final Report: No growth Performed By: #### [id number] #### ROSARIO Microbiology Subsection [address] [place] [address] XR CHEST 2 VIEWS Observed: 11/22/2017 Status: F Source: [facility] 4:26 PM [facility] REPOSITORY Exam Date/Time: 11/22/2017 16:29 EDT Reason for Exam: Other (please specify) Report STUDY: XR Chest 2 Views; 11/22/2017 4:29 pm INDICATION: Preop COMPARISON: None. ACCESSION NUMBER(S): [id number] ORDERING CLINICIAN: Nikhil Coto FINDINGS: PA and lateral views of the chest were obtained. No focal infiltrate, pleural effusion or pneumothorax is identified. The cardiac silhouette is within normal limits for size. Mild discogenic degenerative changes are seen throughout the thoracic spine. IMPRESSION: No focal infiltrate or pneumothorax. FINAL REPORT Dictated: 11/23/2017 9:12 am Rosendo De Anda MD Signed (Electronic Signature): 11/23/2017 9:12 am Signed by: Rosendo De Anda MD Technologist: SHIELA CBC W/ AUTO DIFF Collected: 11/22/2017 Status: F Source: [facility] 4:25 PM [facility] REPOSITORY TYPE CODE TESTS RESULT OUT OF RANGE REFERENCE UNITS LAB [id number](L 3.6-11.0 E3/mcL OINC) Normal WBC 3.6 LAB 19018836(L 3.90-6.10 E6/mcL OINC) Normal RBC 4.17 LAB 79507667(L 13.5-18.0 G/DL OINC) Low Hgb 13.2 LAB 65023310(L 42.0-52.0 % OINC) Low Hct 39.4 LAB 83121604(L 11.5-14.5 % OINC) Normal RDW 13.0 LAB 10062578(L 27.0-31.0 pg OINC) High MCH 31.7 LAB 64477660(L 33.0-37.0 G/DL OINC) Normal MCHC 33.6 LAB 78935732(L 78.0-100.0 fL OINC) Normal MCV 94.4 LAB 11461055(L 7.4-11.0 fL OINC) Low MPV 6.6 LAB 65202198(L 130-400 E3/mcL OINC) Normal Platelet 239 Performed By: #### [id number] #### ROSARIO En[facility]quezHemdeandra [facility] [place] [address] AUTO DIFF Collected: 11/22/2017 Status: F Source: [facility] 4:25 PM [facility] REPOSITORY Order Comment: Order Added by Discern Expert. TYPE CODE TESTS RESULT OUT OF RANGE REFERENCE UNITS LAB [id number](L 37.0-75.0 % OINC) Normal Neutro Auto 52.5 LAB 37996326(L 20.0-55.0 % OINC) Normal Lymph Auto 31.1 LAB 18274731(L 0.0-10.0 % OINC) High Barrow Auto 13.4 LAB 94167605(L 0.0-11.0 % OINC) Normal Eos Auto 1.8 LAB 12298192(L 0.0-2.0 % OINC) Normal Basophil Auto 1.2 LAB 81073556(L 1.4-6.5 E3/mcL OINC) Normal Neutro 1.9 Absolute LAB 37587898(L 1.2-3.4 E3/mcL OINC) Low Lymph Absolute 1.1 LAB 83122250(L 0.0-0.7 E3/mcL OINC) Normal Barrow Absolute 0.5 LAB 37689304(L 0.0-0.7 E3/mcL OINC) Normal Eos Absolute 0.1 LAB 31419109(L 0.0-0.2 E3/mcL OINC) Normal Basophil 0.0 Absolute Performed By: #### [id number] #### ROSARIO [employer] [address] [place] [address] PT Collected: 11/22/2017 Status: F Source: [facility] 4:25 PM [facility] REPOSITORY TYPE CODE TESTS RESULT OUT OF RANGE REFERENCE UNITS LAB 20504123(LO 1.0-1.2 INC) Normal INR 1.0 Result Comment: INR Recommended Therapeuptic Ranges: Prophylaxis/treatment of DVT and PE?2.0-3.0 Prevention of systemic embolism?.2.0-3.0 Mechanical prosthetic values?2.5-3.5 CRITICAL VALUES?.>4.0 LAB 00581340(LOINC) 11.6-14.6 second(s) Normal 13.0 PT Performed By: #### [id number] #### ROSARIO Hematology Automated Subsection [address] [place] [address] PTT Collected: 11/22/2017 Status: F Source: [facility] 4:25 PM [facility] REPOSITORY TYPE CODE TESTS RESULT OUT OF RANGE REFERENCE UNITS LAB [id number](LO 23.2-36.4 second(s) INC) High PTT 36.5 Performed By: #### [id number] #### ROSARIO Hematology Automated Subsection [address] [place] [address] PTT CONTROL RATIO Collected: 11/22/2017 Status: F Source: [facility] 4:25 [facility] REPOSITORY Order Comment: Order added by Discern Expert. TYPE CODE TESTS RESULT OUT OF RANGE REFERENCE UNITS LAB 60348884(LO 0.8-1.2 ratio INC) Normal PTT Ratio 1.2 Performed By: #### [id number] #### ROSARIO Hematology Automated Subsection [address] [place] [address] CMP Collected: 11/22/2017 Status: F Source: [facility] 4:25 PM [facility] REPOSITORY TYPE CODE TESTS RESULT OUT OF RANGE REFERENCE UNITS LAB 65474595(L 70-99 mg/dL OINC) High Glucose Lvl 123 LAB 37125737(L 8.4-10.2 mg/dL OINC) Calcium Normal Lvl 9.4 LAB 15025600(L 136-145 mEq/L OINC) Low Sodium Lvl 134 LAB 63135394(L 3.5-5.1 mEq/L OINC) Normal Potassium Lvl 3.6 LAB 60121184(L 98-107 mEq/L OINC) Low Chloride 97 LAB 10924404(L 24.0-30.0 mEq/L OINC) CO2 Normal 25.0 LAB 40758162(L 7-18 mg/dL OINC) BUN Normal 11 LAB 9239592(LO 0.6-1.3 mg/dL INC) Normal Creatinine 0.8 LAB 47775676(L 42-121 Int._Unit/ OINC) L Alk Phos Normal 84 LAB 46845437(L 0.2-1.0 mg/dL OINC) Bili Normal Total 0.8 LAB 21397250(L 3.2-5.0 G/DL OINC) Albumin Normal Lvl 4.0 LAB 24558113(L 6.4-8.3 G/DL OINC) High Total Protein 8.5 LAB 64636311(L 10-40 Int._Unit/ OINC) L ALT Normal 21 LAB 12745522(L 10-42 Int._Unit/ OINC) L AST Normal 32 LAB 79049521(L 5.4-30.0 ratio OINC) Normal BUN/Creat Ratio 13.8 LAB 97263260(L 2.0-4.0 G/DL OINC) High Globulin 4.5 LAB 03000829(L 1.1-1.9 ratio OINC) Low A/G Ratio 0.9 Performed By: #### [id number] #### ROSARIO [employer] [place] [address] EGFR Collected: 11/22/2017 Status: F Source: [facility] 4:25 PM [facility] REPOSITORY Order Comment: Order added by Discern Expert. TYPE CODE TESTS RESULT OUT OF RANGE REFERENCE UNITS LAB 09154721(LO mL/min/1.73 INC) m2 Normal eGFR >60 LAB 81398738(LO mL/min/1.73 INC) m2 Normal eGFR AA >60 Performed By: #### [id number] #### ROSARIO [employer] [address] [place] [address] MRSA BY PCR Collected: 11/22/2017 Status: F Source: [facility] 4:25 PM [facility] REPOSITORY TYPE CODE TESTS RESULT OUT OF RANGE REFERENCE UNITS LAB 209685650(L OINC) Normal MRSA Negative by PCR Result Comment: A negative result does not preclude MRSA/SA nasal colonization. The performance characteristics were not established for patients =< 21 years of age. LAB 185002406(LOINC) Abnormal Positive SA by PCR Result Comment: A negative result does not preclude MRSA/SA nasal colonization. The performance characteristics were not established for patients =< 21 years of age. Performed By: #### [id number] #### ROSARIO Misc Micro SubSection , Observed: 10/30/2017 Status: F Source: [facility] RAPID STREP A 11:57 AM [facility] SCREEN REPOSITORY Final Report: Streptococcus Group A screen negative Performed By: #### [id number] #### ROSARIO Microbiology Subsection [address] [place], [place] [id number] ORTHOPEDIC VISIT Observed: 09/23/2017 Status: F Source: [facility] RE[facility] 5:00 PM [facility] REPOSITORY [facility] [address] [place] [address] OFFICE VISIT Date of Service: 09/13/17 MR#: [id number] Acct: [id number] Name: ISAURA BUCK Rep #: [id number] : 1950 Provider: Kira Beltrán MD Age/Sex: 67/M Location: [facility] [place] [place] Status: Signed Intake Intake Visit Reasons: LOW BACK Is patient in pain?: Yes Allergies No Known Allergies Allergy (Verified 09/13/17 16:03) Medications hydrocodone 5 mg-acetaminophen 325 mg tablet 1 tab PO Q6H PRN 08/09/17 [History Confirmed 08/09/17] PFSH Medical History Prostate cancer (Acute) Surgical History H/O cervical spine surgery (Acute) h/o bunionectomy (Acute) Family History Brother Cancer Mother Cancer COPD (chronic obstructive pulmonary disease) Social History Smoking Status: Current every day smoker tobacco type: cigarettes HPI LOW BACK: Details: ISAURA BUCK is a 67 year old M here today for a followup on his low back pain 20% and left buttock, posterior thigh, calf 80%. He is limiting his ADLs due to pain. Patient is having difficulty sleeping. Patient sees Dr Hicks this coming for a repeat epidural injection. Patient is currently taking norco 5/325mg TID and gabapentin for pain. His pain is worse with carrying greater than 10 pounds, in the morning and when sitting or car ride. It is improved with laying on his back, hot tub and massage. He denies fevers or chills or bowel or bladder issues. He states he stopped nicotine. ROS Const Reports system reviewed and no additional complaints, except as docu Eyes Reports system reviewed and no additional complaints, except as docu ENT Reports system reviewed and no additional complaints, except as docu Card Reports system reviewed and no additional complaints, except as docu Resp Reports system reviewed and no additional complaints, except as docu GI Reports system reviewed and no additional complaints, except as docu Reports system reviewed and no additional complaints, except as docu Musc Reports back pain, Reports radiating pain into limb Skin/Breast Reports system reviewed and no additional complaints, except as docu Neuro Yes system reviewed and no additional complaints, except as docu Psych Reports system reviewed and no additional complaints, except as docu Endo Reports system reviewed and no additional complaints, except as docu Ortho Exam Spine Neuro: Yes Straight Leg Raise (negative bilaterally) and Allan's (negative bilaterally) General: alert, oriented x3 Capillary Refill <2sec: Yes Gait: normal gait, other (heel and toe walk) Motor: strength 5/5 throughout Sensory Exam: no sensory deficits noted DTR's: Rt Patellar: 2+, Lt Patellar: 2+, Rt Ankle: 2+, Lt Ankle: 2+ Coordination: tandem gait normal SPINE TESTING CERVICAL THORACIC LUMBAR SLR: Negative Musculoskeletal General: Yes normal gait Thoracic/Lumbar Spine: lumbar spinal tenderness, thoraco-lumbar ROM limited, other (worse with lumbar extension than flexion) Strength 0=absent - 5=normal R Hip Flexor (L1-3): 5, L Hip Flexor (L1-3): 5, R Quadriceps (L2-4): 5, L Quadriceps (L2-4): 5, R Anterior Tibialis (L4-5): 5, L Anterior Tibialis (L4-5): 5, R Hamstrings (L5-S1): 5, L Hamstrings (L5-S1): 5, GS (S1): 5, L GS (S1): 5, R Peroneals (S1): 5, L Peroneals (S1): 5 Assessment AND Plan Plan Imaging: Xr lumbar spine 08/09/2017 DDD MRI lumbar spine 03/02/2017 diffuse spondylosis with left L5-S1 lateral recess stenosis. I/R/P: 1. back pain 2. left leg pain 3. nicotine use, recently quit 4. prostate cancer with radiation seeds 5. history of cervical fusion 03/2013 Mr. Buck continues to have back and left leg pain, S1 radiculopathy. This patient has exhausted all conservative/nonoperative treatment measures to include physical therapy, epidural steroid injections and medications therefore we will recommend surgical intervention, to include a left L5-S1 microdecompression. Over 30 minutes was spent in consultation with this patient. Risks, benefits and alternatives to surgery were discussed. Risks discussed include but are not limited to catastrophic compliations of and blindness, risks of anesthesia, blood loss, infection, nerve injury, dural tear, reherniation, instability, failture to relief symptoms, worsening of symptoms, adjacent level disease, need for further surgery, paralysis, and DVT/PE. He will need medical clearance from his PCP, Dr. Coto. All questions were answered. The procedure was discussed in detail with the use of plastic models. The patient verbalized understanding and agreed to comply with the treatment plan formulated. Applauded for nicotine cessation. Coding Level of Care Code Off vis,est,level 4 09/23/17 1700 <Electronically signed by Kira Beltrán MD> Date Kira Beltrán MD Cosigner Signature: Date (if applicable) CC: Jane Hicks MD; Nikhil Coto MD ORTHOPEDIC VISIT Observed: 08/13/2017 Status: F Source: [facility] 9:58 PM [facility] REPOSITORY [facility] [address] [place], [place] [id number] OFFICE VISIT Date of Service: 08/09/17 MR#: [id number] Acct: [id number] Name: ISAURA BUCK Rep #: [id number] : 1950 Provider: Kira Beltrán MD Age/Sex: 67/M Location: [facility] [place] [place] Status: Signed Intake Vital Signs08/09/17 Height 6 ft 08/09/17 Weight: 172 lb 08/09/17 Body Mass Index (BMI) 23.3 Intake Visit Reasons: Low back pain Is patient in pain?: Yes Pain scale (1-10): 8 Allergies No Known Allergies Allergy (Unverified 08/09/17 14:44) Medications hydrocodone 5 mg-acetaminophen 325 mg tablet 1 tab PO Q6H PRN 08/09/17 [History Confirmed 08/09/17] PFSH Medical History Prostate cancer (Acute) Surgical History H/O cervical spine surgery (Acute) h/o bunionectomy (Acute) Family History Brother Cancer Mother Cancer COPD (chronic obstructive pulmonary disease) Social History Smoking Status: Current every day smoker tobacco type: cigarettes HPI Low back pain: Details: ISAURA BUCK is a 67 year old RHD M referred by Dr Hicks for low back pain 20% and left buttock, posterior thigh and calf and ankle pain 80%. Patient notes that he has had back pain for over a year. His pain worsened in the winter of 2015 when he was sledding and hit the frozen ground. He complains also of his right groin. He notes that he has a cramp into penis. He has increased pain when he sits for long periods of time, car rides, forward flexion and bending. 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 Patient notes relief in his symptoms when he lays down on his back. Patient has completed multiple sessions of physical therapy which are not helpful. He sees Dr Hicks who gave him a caudal injection on 05/17/17, which helped for 10 days in his leg. He takes norco, 3 pills per day for 6 years for neck pain. This is managed by Dr. Hicks. Patient sees a chiropractor for adjustments which are helpful sometimes. He has had PT. He denies any bowel or bladder issues, difficulty with hand issues, or gait instability. 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 He has had prostate cancer with radiation seeds. No surgery or chemotherapy. He has had a cervical fusion for radiculopathy. He has chronic headaches. He does smoke 2-3 cigarettes per day. He does not drink. ROS Const Reports system reviewed and no additional complaints, except as docu Eyes Reports system reviewed and no additional complaints, except as docu ENT Reports system reviewed and no additional complaints, except as docu Card Reports system reviewed and no additional complaints, except as docu Resp Reports system reviewed and no additional complaints, except as docu GI Reports system reviewed and no additional complaints, except as docu Reports system reviewed and no additional complaints, except as docu Musc Reports back pain, Reports radiating pain into limb Skin/Breast Reports system reviewed and no additional complaints, except as docu Neuro Yes system reviewed and no additional complaints, except as docu Psych Reports system reviewed and no additional complaints, except as docu Endo Reports system reviewed and no additional complaints, except as docu Ortho Exam Spine Neuro: Yes Allan's (negative bilaterally), Straight Leg Raise (discomfort with sitting, neg laying) and Babinski (downgoing) General: alert, oriented x3 Skin: Yes dysraphism (none) Capillary Refill <2sec: Yes Palpable Pulses: 1+ dp/pt pulses Gait: normal gait, other (heel and toe walk) Motor: strength 5/5 throughout Sensory Exam: no sensory deficits noted DTR's: Rt Triceps: 2+, Lt Triceps: 2+, Rt Biceps: 2+, Lt Biceps: 2+, Rt Brachioradialis: 2+, Lt Brachioradialis: 2+, Rt Patellar: 2+, Lt Patellar: 2+, Rt Ankle: 2+, Lt Ankle: 1+ Plantar Reflexes: Downgoing: bilateral Coordination: tandem gait normal, Romberg test normal SPINE TESTING CERVICAL THORACIC LUMBAR Musculoskeletal General: Yes normal gait and normal posture Cervical Spine: cervical ROM normal Thoracic/Lumbar Spine: paraspinal tenderness, pain with thoraco- lumbar ROM, thoraco-lumbar ROM limited Strength 0=absent - 5=normal Deltoid R (C5): 5, Deltoid L (C5): 5, R Bicep (C5-6): 5, L Bicep (C5-6): 5, R Wrist Extensor (C6): 5, L Wrist Extensor (C6): 5, R Tricep (C7): 5, L Tricep (C7): 5, R Finger Flexors (C8): 5, L Finger Flexors (C8): 5 (DIP amputation long finger), R First Dorsal Interossei (C8): 5, L First Dorsal Interossei (C8): 5, R Hip Flexor (L1-3): 5, L Hip Flexor (L1-3): 5, R Quadriceps (L2-4): 5, L Quadriceps (L2-4): 5, R Anterior Tibialis (L4- 5): 5, L Anterior Tibialis (L4-5): 5, R Hamstrings (L5-S1): 5, L Hamstrings (L5-S1): 5, GS (S1): 5, L GS (S1): 5, R Peroneals (S1): 5, L Peroneals (S1): 5 Assessment AND Plan 1. Chronic bilateral low back pain with left-sided sciatica M54.42; G89.29 2. Lumbar radiculopathy M54.16 Plan Imaging: XR lumbar spine reveals diffuse spondylosis MRI lumbar spine 03/02/2017 reveals diffuse spondylosis with left L5-S1 lateral recess stenosis and displacement of the left S1 nerve root I/R/P: 1. back pain 2. left leg pain 3. nicotine use 4. prostate cancer with radiation seeds 5. history of cervical fusion 03/2013 Mr. Buck presents with back pain and left lumbar radiculopathy. The natural history and course of the symptomatology of lumbar radiculopathy was discussed in detail with the patient. I answered all questions regarding the mode of onset, pathophysiology, symptoms, imaging findings, treatment options (both non-operative and operative) regarding his diagnosis. He has failed epidural steroid injections, medications and physical therapy. Recommend a left L5-S1 microdecompression at [facility] He would need medical clearance. The patient would like to think about surgery. Prescribed gabapentin in the interim and cunseled on nicotine cessation. He will contact our office when he is ready to proceed. He will need a follow up for consent. Plan of care discussed. All questions answered. The patient verbalized understanding of the disease process and agreed to the treatment plan formulated for this visit. Plan Detail Other Orders Orders: Coding Level of Care Code Off vis,new,level 4 Diagnoses Chronic bilateral low back pain with left-sided sciatica M54.42; G89.29 Chronicity: chronic Back pain laterality: bilateral Sciatica presence: with sciatica Sciatica laterality: sciatica of left side Lumbar radiculopathy M54.16 08/13/17 2158 <Electronically signed by Kira Beltrán MD> Date Kira Beltrán MD Cosigner Signature: Date (if applicable) CC: Jane Hicks MD L/S SPINE COMP/W Observed: 08/09/2017 Status: F Source: [place] [facility]IE[facility] 1:40 PM [facility] REPOSITORY [facility] Imaging Services [address] [place] [place] [address] L/S Spine Comp/w Bending Views MR#: [id number] Acct: [id number] Name: ISAURA BUCK Rep #: [id number] : 1950 M 67 From: Ej Brown DO PCP: Nikhil Coto MD Status: REG CLI Study: L/S Spine Comp/w Bending Views Date of Exam: 08/09/17 Exam# [id number] Ordering Dr: Kira Beltrán MD STUDY: X-RAY - LUMBOSACRAL SPINE REASON FOR EXAM: Male, 67 years old. Low back pain TECHNIQUE: 7 view(s) of the lumbosacral spine were obtained. COMPARISON: 03/02/2017 FINDINGS: Normal lumbar lordosis. There is no substantial scoliosis. There is normal alignment of the vertebrae. There is multilevel endplate spondylosis of the lumbar vertebrae. There is multi-level degenerative disc disease with multi-level disc space narrowing. There is no subluxation with flexion and extension views. Normal bilateral sacral ala, sacroiliac joints, and visualized sacrum. There is mild atherosclerotic calcification of the abdominal aorta. RAD/L/S Spine Comp/w Bending Views IMPRESSION: Diffuse degenerative changes. No acute bony abnormality. Electronically Signed: Ej Brown DO at 13:47 EDT Tel , Service support , CC: Kira Beltrán MD; Nikhil Coto MD Director Institution: Signed PSA TOTAL Collected: 07/26/2017 Status: F Source: [facility] 3:18 PM [facility] REPOSITORY TYPE CODE TESTS RESULT OUT OF RANGE REFERENCE UNITS LAB [id number](LO ng/mL INC) Normal PSA Total 0.24 Result Comment: AGE-SPECIFIC REFERENCE RANGES FOR SERUM PSA REFERENCE RANGE NG/ML AGE ASIANS BLACKS WHITE 40-49 0- 2 0-2 0-2.5 50-59 0- 3 0-4 0-3.5 60-69 0- 4 0-4.5 0-4.5 70-79 0- 5 0-5.5 0-6.5 PSA INCREASES WITH AGE, RACE, AND EJACULATION WITHIN 48 HRS. [facility] VOL24,NO.2, , PG.339 Performed By: #### [id number] #### ROSARIO [employer] [address] [place], [place] [address] ALLERGIES ALLERGIES DATE TYPE / NAME / CODE REACTION SEVERITY SOURCE CODE 01/24/2018 Drug No Known Unknown [place] Allergy/41 Allergies/[id number] Community [id number]([facility](RXNORM) [facility] CT) Repository [employer] [id number] [facility] t/[id number] allergy [facility] 6(SNOMED System CT) Repository Drug/51339 No Known Medication [facility] 1003[facility] All[facility] D CT) System Repository ENCOUNTERS ENCOUNTERS ADMIT/DISCHARGE ACCOUNT NUMBER ADMITTING ENCOUNTER LOCATION SOURCE CLASS 03/14/2018 [id number] Ambulatory [facility] Hospital ing:HPRAD Repository 03/14/2018/03/14/20 [id number] Ambulatory BMSBuilding:B [place] 18 MS.Pending sale to [facility] Repository 01/24/2018/01/25/20 [id number] Ambulatory BMSBuilding:B [place] 18 MS.Pending sale to [facility] Repository 12/27/2017 [id number] Ambulatory BMSBuilding:B [place] MS.CF.Pending sale to [facility] Repository 12/27/2017/12/28/19 [id number] Ambulatory [address] Hospital ing:SDCRoom: Repository AC07 11/29/2017/11/30/19 [id number] Ambulatory BMSBuilding:B [place] 18 MS.Pending sale to [facility] Repository 11/22/2017/11/23/19 [id number] [place], Ambulatory [facility] 18 [facility] HospitalBuild Regional ing:[facility] Repository 11/22/2017/11/23/19 [id number] [facility], Ambulatory Christian Christian 18 Emmalena T HospitalBuild Regional ing:[facility] Repository 11/22/2017/11/23/19 [id number] Ambulatory [facility] Rep[facility] Med AssocRoom: Room 2 11/22/2017 [id number] Ambulatory [address] [place] [address] Repository 11/22/2017 [id number] Ambulatory [address] [place] [address] Repository 11/02/2017/11/03/19 [id number] Ambulatory [facility] [place] Repository Med Assoc 10/30/2017/10/31/19 [id number] Ricardo, Emergency Christian Christian 18 Isaura A HospitalBuild Regional ing:[facility] EDRoom: WR Repository 10/30/2017 [id number] Ambulatory [address] [place] [address] Repository 09/13/2017/09/14/19 [id number] Ambulatory BMSBuilding:B [place] 18 MS.Pending sale to [facility] Repository 08/09/2017 [id number] Ambulatory [facility] Hospital ing:HPRAD Repository 08/09/2017/08/10/19 [id number] Ambulatory BMSBuilding:B [place] 18 MS.LYNNETTE [facility] Hospital Repository 08/08/2017 [id number] Ambulatory [facility] 08/08/2017/08/09/19 [id number] Ambulatory [address] Repository ng:[facility] Room: Room 1 07/26/2017/07/27/19 [id number] Eusebio Evans [address] ing:[facility] Repository 05/09/2017/05/09/19 [id number] Eusebio Evans [address] Repository ng:[facility] Room: Room 2 PAYERS PAYERS ENCOUNTER GUARANTOR PAYER SUBSCRIBER SOURCE 03/14/2018 ISAURA K Primary ISAURA Devi [id number] Insurance:AETNA RADABAUGHDOB: [facility] Number: [id number], [place] [id number] Repository [address]Qye: 330) Date:0682-25-66RL [phone] () [id number] [place] [address]QF: 03/14/2018 Secondary NOT GIVENUNK [place] Insurance:SELF PAY [facility] Number: Effective Repository Date:2018-03-14 03/14/2018 ISAURA Mosquera Primary ISAURA Devi [id number] Insurance:AETNA RADABAUGHDOB: [facility] Number: [id number], [place] [id number] Repository [address]Xbn: 330) Date:6061-96-72SL [phone] () [id number] [place] [address]JU: 03/14/2018 Secondary NOT GIVENUNK [place] Insurance:SELF PAY [facility] Number: Effective Repository Date:2018-03-14 01/24/2018 ISAURA K Primary ISAURA Mosquera [place] [id number] Insurance:AETNA RADABAUGHDOB: [facility] Number: [id number], [place] [id number] Repository 15[address]Fmx: (330) Date:6372-13-64NX [phone] () 767085YYWONEW[place], [place] [address]ZZ: 01/24/2018 Secondary NOT GIVENUNK [place] Insurance:SELF PAY [facility] Number: Effective Repository Date:2018-01-24 12/27/2017 ISAURA K Primary ISAURA Mosquera [place] [id number] Insurance:AETNA RADABAUGHDOB: [facility] Number: [id number], [place] [id number] Repository [address]Ztf: (330) Date:2358-97-91PQ [phone] () 831230XVWONEWOC, [place] [address]VO: 12/27/2017 Secondary NOT GIVENUNK [place] Insurance:SELF PAY [facility] Number: Effective Repository Date:2017-12-27 12/27/2017 ISAURA Mosquera Primary ISAURA Mosquera [place] [id number] Insurance:AETNA RADABAUGHDOB: [facility] Number: [id number], [place] [id number] Repository [address]Gcm: (330) Date:8915-12-35NF [phone] () 218987VMWONEWOC, [place] [address]MH: 12/27/2017 Secondary NOT GIVENUNK [place] Insurance:SELF PAY [facility] Number: Effective Repository Date:2017-11-18 11/29/2017 ISAURA K Primary ISAURA Mosquera [place] [id number] Insurance:AETNA RADABAUGHDOB: [facility] Number: [id number], [place] [id number] Repository [address]Dno: (330) Date:7332-38-60LH [phone] (HP) 320252GZWONEWOC, [place] [address]DM: 11/29/2017 Secondary NOT GIVENUNK [place] Insurance:SELF PAY [facility] Number: Effective Repository Date:2017-11-29 11/22/2017 ISAURA Mosquera Primary ISAURA Ken[place] RADABAUGHDOB: Insurance:AETNAPolicy RADABAUGHDOB: [facility] Number: Effective [id number] System [place]GLING Date:2017-11-22 [place]ository [place], [place] 4011-96-84Jeod [place] [address]Avc: Name:CD:[id number] VILLE [id number]: [address] [place] [address] (HP) [phone]: (800) (HP) 000-0000 (WP) 11/22/2017 ISAURA Mosquera Primary ISAURA Kenyon RADABAUGHDOB: Insurance:AETNAPolicy RADABAUGHDOB: [facility] Number: Effective [id number] System [place]GL[place] Date:2017-11-22 [place]GLING [place] 5818-02-35[place] [address]Bvo: Name:CD:[id number] VILLE [id number]: [address] [place] [address] (HP) [phone]: (800) (HP) 000-0000 (WP) 11/22/2017 ISAURA Mosquera Primary ISAURA GRIFFITHABAUGHDOB: Insurance:1500 RADABAUGHDOB: [facility] AETNAPolicy Number: [id number] System [place]GLING Effective [address] Repository [place] Date:2017-11-22 - [place] [address]Npv: [id number] [address]Lvc: Name:CD:[id number] O (HP) [address]64TFWONEWOC, [place] ()Tel: [phone]: () [phone] 11/22/2017 [facility] Number: [id number] Repository [place] [id number] [address] [place] Date:Plan Name:[place], [place] [id number]: [id number]: () () 11/22/2017 [facility] Insurance:Medical [facility] [id number] Repository Number: [id number] [place] Date:Plan Name:Health [id number]: () 11/22/2017 [facility]: [facility] Number: [id number] Repository [place] [id number] [address] [place] Date:Plan Name:[place], [place] [id number]: [phone]: () () 11/02/2017 [facility]: Insurance:[facility]: [facility] Number: Effective [id number] System [place] Date:2017-11-01 [place]ository [place] 9395-49-05[place] [address]Wue: Name:CD:[id number] [address] [address]Wsd: [id number] [place] [address] (HP) [phone]: (800) (HP) 000-0000 (WP) 10/30/2017 ISAURA Primary [facility] HospitalB: [facility] Number: Effective [id number] System [place] Date:2017-10-30 [place]ository [place] 0660-97-89[place]r [place] [address]Gsd: Name:CD:[id number] [facility]Ivz: [address] [place] [address] (HP) [phone]: (800) (HP) 000-0000 (WP) 10/30/2017 [facility]: Insurance:[facility]: [facility] Number: [id number] Repository [place] [id number] [address] [facility] [place] Date:Plan Name:[place], [place] [id number]: [phone]: (HP) (HP) 10/30/2017 [facility] Insurance:Medical [facility]: [facility] [id number] Repository Number: 53 PET[address] [id number] [facility] [place] Date:Plan Name:Health [id number]: (HP) 09/13/2017 [facility]A [id number] Insurance:AETNA [facility]AB[facility]B: [facility] Number: [id number], [place] [id number] Repository [address]Dna: (330) Date:6030-59-12GJ [phone] () [id number] [address]AK: 09/13/2017 Secondary ISAURA K [place] Insurance:MEDICAL RADABAUGHDOB: [facility] [id number] Number: Repository [id number] Date:8373-96-64YZ [address] [place] [address]PU: 09/13/2017 Tertiary NOT GIVENUNK [place] Insurance:SELF PAY [facility] Number: Effective Repository Date:2017-09-13 08/09/2017 ISAURA K Primary ISAURA K [place] [id number] Insurance:MEDICARE RADABAUGHDOB: [facility] ANGLING PART A [facility] [id number], [place] Number: Repository [address]Krr: 330 [id number] [phone] () Date:2017-08-09 08/09/2017 Secondary ISAURA K [place] Insurance:MEDICAL RADABAUGHDOB: [facility] [id number] Hospital Number: Repository [id number] Date:1223-43-91SB [address] [place] [address]RS: 08/09/2017 Tertiary NOT GIVENUNK [place] Insurance:SELF PAY [facility] Number: Effective Repository Date:2017-08-09 08/09/2017 ISAURA K Primary ISAURA K [place] [id number] Insurance:MEDICARE RADABAUGHDOB: [facility] ANGLING PART A [facility] [id number], [place] Number: Repository [address]Jbx: 330 [id number] [phone] () Date:2017-06-01 08/09/2017 Secondary ISAURA K [place] Insurance:MEDICAL RADABAUGHDOB: [facility] [id number] [facility] Number: Repository [id number] Date:8710-71-89VM [address] [place] [address]XH: 08/09/2017 Tertiary TRACY Devi Insurance:SELF PAY [facility] Number: Effective Repository Date:2017-06-01 08/08/2017 ISAURA Mosquera Primary ISAURA Kenyon RADABAGYPSYDOB: Insurance:1500 RADABAUGHDOB: [facility] MEDICARE [id number] System ANGLING PRIMARYPolicy Number: [address] Repository [facility] [place] [address]Env: Date:2017-08-0869180-8317Lik: 2100-12-31plan () Name:CD:[id number] O ()Tel: (790) [address]DPYDFBDJ, 0000000 () [place] [address]JQ: 08/08/2017 Secondary ISAURA Kenyon Insurance:1500 RADABAUGHDOB: [facility] [id number] System Number: Effective [address] Repository Date:2017-08-08 - [place], [place] 4810-98-37Iaop [address]Mcx: Name:CD:[id number] [address] [place] [address] ()Tel: [phone]: () [phone] 08/08/2017 ISAURA Mosquera Primary ISAURA Kenyon RADABAGYPSYDOB: Insurance:1500 RADABAUGHDOB: [facility] MEDICARE [id number] System [address]GL[address] PRIMARYPolicy Number: [address] Repository [facility] [place] [address]Shv: Date:2017-08-0821972-0459Rdr: 2100-12-31plan () Name:CD:[id number] O (HP)Tel: (000) [address] [address]ECGPYOLNM, 000-0000 (WP) [place] [address]CW: 08/08/2017 Secondary ISAURA Kenyon Insurance:1500 RADABAINSPIRE SPECIAL[facility] HOS[facility]ITAL [facility] MIDWEST CITYDOB: [facility] [id number] System Number: Effective [address] Repository Date:2017-08-08 - [place], [place] 0456-04-72Febb [address]Rst: Name:CD:[id number] [address] [place] [address] ()Tel: 000) [phone]: (WP) [phone] 07/26/2017 ISAURA Mosquera Primary ISAURA Kenyon [facility] Insurance:Medical [facility]ABAHAR[facility]OSPITALB: [facility] [id number] MutualPolicy Number: [id number] System [address]GLING Effective [address] Repository [place] Date:2017-07-26 - [place] [address]Umc: [id number] [address]Lak: Name:[facility] () [address] [place] [address] ()Tel: 000) [phone]: (WP) [phone] 05/09/2017 ISAURA Mosquera Primary ISAURA Kenyon [facility]OSPITALDOB: Insurance:1500 RADABAHARPER UNIVERSITY HOSPITALB: [facility] [id number] System [place] Number: Effective [address] Repository [place] Date:2017-05-09 [place] [address]Yvq: [id number] [address]Nmb: Name:CD:[id number] O (HP) [address] [place] [address] ()Tel: [phone]) [phone]: (wp) [phone]
== END ==
PROVIDERS: Family Provider Family Medicine; PCP Family Medicine; Referring Provider Orthopaedic Surgery; Visit Provider Orthopaedic Surgery
DX: M54.16 Radiculopathy, lumbar region (principal)
CPT/HCPCS: 72110

== ENCOUNTER → 2018-06-13 17:02 | Outpatient (CLI) | payer MEDICARE, OTHER, SELFPAY ==
[2018-06-13 17:58] LABS: Amphetamine Urine VISTA NEGATIVE (<1000 ng/mL); Barbiturate Urine VISTA NEGATIVE (< 200 ng/mL); Benzodiazepine Urine VISTA NEGATIVE (< 200 ng/mL); Cocaine Urine VISTA NEGATIVE (< 300 ng/mL); Ecstacy Urine VISTA NEGATIVE (< 500 ng/mL); Methadone Urine VISTA NEGATIVE (< 300 ng/mL); PCP Urine VISTA NEGATIVE (< 25 ng/mL); THC Urine VISTA NEGATIVE (< 50 ng/mL); Vista UDS pH Range 7
== END ==
PROVIDERS: Family Provider Family Medicine; PCP Family Medicine; Referring Provider Anesthesiology Pain Medicine; Visit Provider Anesthesiology Pain Medicine
DX: F11.20 Opioid dependence, uncomplicated (principal)
CPT/HCPCS: 80307

== ENCOUNTER → 2018-07-21 | Outpatient (CLI) | payer MEDICARE, OTHER, SELFPAY ==
--- NOTE | 2018-07-21 15:08 | RAD_ITS ---
STUDY: X-RAY - CERVICAL SPINE REASON FOR EXAM: Male, 67 years old. History cervical fusion TECHNIQUE: 4 view(s) of the cervical spine were obtained. COMPARISON: None FINDINGS: Normal anterior atlantoaxial articulation. Normal odontoid process. Decreased cervical lordosis. No evidence for acute fracture or subluxation. There is multilevel osteophytic spurring. 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 No evidence for acute fracture Electronically Signed: Clifford Issa MD at 17:09 EDT , Service support ,
== END | disposition home or self-care (01) ==
LOC: RAD.FUTURE 15:05
PROVIDERS: Family Provider Family Medicine; PCP Family Medicine; Referring Provider Anesthesiology Pain Medicine; Visit Provider Anesthesiology Pain Medicine
DX: M54.2 Cervicalgia (principal)
CPT/HCPCS: 72040

== ENCOUNTER → 2018-08-14 16:18 | Outpatient (CLI) | payer MEDICARE, SELFPAY ==
--- NOTE | 2018-08-14 16:20 | MRI_ITS ---
STUDY: MRI CERVICAL SPINE WITHOUT CONTRAST REASON FOR EXAM: Male, 68 years old. Neck and right arm pain TECHNIQUE: Standardized fat and water weighted pulse sequences were obtained in the sagittal and axial planes. COMPARISON: None FINDINGS: Normal foramen magnum and brainstem-cervical cord junction. Normal craniovertebral junction. Normal anterior atlantoaxial articulation. Normal odontoid process. Decreased cervical lordosis. Normal vertebral bodies and posterior osseous elements. C2-3: Normal endplates. Normal disc height, signal and morphology. Normal central canal and intervertebral neural foramina. C3-4: Mild endplate spurring. Grade 1 spondylolisthesis. Normal disc height with minor bulging disc osteophyte complex. Normal central canal.. Normal central canal. Moderate right neuroforaminal stenosis and mild narrowing on the left secondary to bony hypertrophy C4-5: Endplate spurring.. Normal disc height, signal and morphology. Normal central canal. Severe right neuroforaminal stenosis and moderate to severe narrowing on the left secondary to bony hypertrophy C5-6: Status post anterior fusion.. No disc protrusion. Normal central canal and intervertebral neural foramina. C6-7: Status post anterior fusion. No disc protrusion. Normal central canal and intervertebral neural foramina. C7-T1: Normal endplates. Normal disc height, signal and small right foraminal disc protrusion. Normal central canal. Moderate to severe right neuroforaminal stenosis. Normal cervical cord. Normal visualized soft tissue structures. MRI/Spine Cervical (Routine) IMPRESSION: No evidence for acute fracture or subluxation. Status post anterior fusion at C5-6 and C6-7. Spondylosis and multilevel neuroforaminal stenosis secondary to disc disease and bony hypertrophy. Findings as above Electronically Signed: Clifford Issa MD at 18:15 EDT , Service support ,
== END ==
PROVIDERS: Family Provider Family Medicine; PCP Family Medicine; Referring Provider Anesthesiology Pain Medicine; Visit Provider Anesthesiology Pain Medicine
DX: M54.2 Cervicalgia (principal); M79.601 Pain in right arm
CPT/HCPCS: 72141

== ENCOUNTER → 2019-02-13 15:26 | Outpatient (CLI) | payer MEDICARE, SELFPAY ==
[2019-02-13 15:48] LABS: Absolute Lymphocyte Count 1.94 X10^3/uL (0.83-4.51); Absolute Neutrophil Count 4.9 X10^3/uL (2.0-7.7); Basophil# 0.07 X10^3/uL; Basophil% 0.9 % (0-1); Eosinophil# 0.16 X10^3/uL; Hematocrit 42.7 % (40-54); Hemoglobin 13.9 g/dL (13.0-16.5); Lymphocyte # 1.94 X10^3/ul (4.0); Lymphocyte % 24.8 % (19-41); Mean Corp Hgb Conc 32.6 g/dL (32-36); Mean Corpuscular Hgb 31.7 pg (27.0-32.0); Mean Corpuscular Volume 97.5 fL (80-94); Mean Platelet Vol. 8.7 fl (6.2-12.0); Monocyte# 0.68 X10^3/uL; Monocyte% 8.7 % (0-10); NRBC Flagged by Analyzer 0 % (0-5); Neutrophil # 4.92 X10^3/uL (2.7-7.7); Neutrophil % 62.8 % (47-70); Platelet Count 292 K/mm3 (150-450); RBC Distribution Width CV 11.9 % (11.6-14.6); RBC Distribution Width SD 43.4 fl (35.1-43.9); Red Blood Count 4.38 M/mm3 (4.6-6.2); White Blood Count 7.8 K/mm3 (4.4-11.0)
[2019-02-13 16:25] LABS: AST(SGOT) 17 U/L (15-37); Alanine Aminotransfer ALT/SGPT 20 U/L (16-61); Albumin, Serum 4.3 g/dL (3.2-5.0); Alkaline Phosphatase 80 U/L (45-117); Bilirubin, Direct 0.09 mg/dL (0.00-0.30); Globulin 3.8 g/dL (2.2-4.2); Protein, Total 8.1 g/dL (6.4-8.2)
== END ==
PROVIDERS: Family Provider Family Medicine; PCP Family Medicine; Referring Provider Dermatology; Visit Provider Dermatology
DX: B35.1 Tinea unguium (principal); I87.2 Venous insufficiency (chronic) (peripheral); L72.8 Other follicular cysts of the skin and subcutaneous tissue; L82.1 Other seborrheic keratosis; Z79.899 Other long term (current) drug therapy
CPT/HCPCS: 36415; 80076; 85025

== ENCOUNTER → 2019-03-13 16:24 | Outpatient (CLI) | payer MEDICARE, SELFPAY ==
[2019-03-13 18:51] LABS: Amphetamine Urine VISTA NEGATIVE (<1000 ng/mL); Barbiturate Urine VISTA NEGATIVE (< 200 ng/mL); Benzodiazepine Urine VISTA NEGATIVE (< 200 ng/mL); Cocaine Urine VISTA NEGATIVE (< 300 ng/mL); Ecstacy Urine VISTA NEGATIVE (< 500 ng/mL); Methadone Urine VISTA NEGATIVE (< 300 ng/mL); PCP Urine VISTA NEGATIVE (< 25 ng/mL); THC Urine VISTA NEGATIVE (< 50 ng/mL); Vista UDS pH Range 8
== END ==
PROVIDERS: Family Provider Family Medicine; PCP Family Medicine; Referring Provider Anesthesiology Pain Medicine; Visit Provider Anesthesiology Pain Medicine
DX: F11.20 Opioid dependence, uncomplicated (principal)
CPT/HCPCS: 80307

== ENCOUNTER → 2019-11-21 14:32 | Outpatient (CLI) | payer MEDICARE, SELFPAY ==
[2019-11-21 16:52] LABS: Amphetamine Urine VISTA NEGATIVE (<1000 ng/mL); Barbiturate Urine VISTA NEGATIVE (< 200 ng/mL); Benzodiazepine Urine VISTA NEGATIVE (< 200 ng/mL); Cocaine Urine VISTA NEGATIVE (< 300 ng/mL); Ecstacy Urine VISTA NEGATIVE (< 500 ng/mL); Methadone Urine VISTA NEGATIVE (< 300 ng/mL); PCP Urine VISTA NEGATIVE (< 25 ng/mL); THC Urine VISTA NEGATIVE (< 50 ng/mL); Vista UDS pH Range 6
== END ==
PROVIDERS: PCP Family Medicine; Referring Provider Anesthesiology Pain Medicine; Visit Provider Anesthesiology Pain Medicine
DX: F11.20 Opioid dependence, uncomplicated (principal)
CPT/HCPCS: 80307

== ENCOUNTER → 2020-05-28 13:13 | Outpatient (CLI) | payer MEDICARE, SELFPAY ==
--- NOTE | 2020-05-28 13:19 | MRI_ITS ---
STUDY: MRI LUMBAR SPINE WITHOUT CONTRAST REASON FOR EXAM: Male, 69 years old. BACK AND LEG PAIN TECHNIQUE: Standardized fat and water weighted pulse sequences were obtained in the sagittal and axial planes. COMPARISON: 03/02/2017 FINDINGS: T12-L1: Normal endplates. Normal disc height, hydration and morphology. Normal bilateral facet joints. Normal central canal and bilateral lateral recesses. Normal bilateral intervertebral neural foramina. Normal lumbar lordosis. There is no substantial scoliosis. Normal conus medullaris that terminates at the L1/L2. L1-2: Normal endplates. Normal disc height, hydration and morphology. Normal bilateral facet joints. Normal central canal and bilateral lateral recesses. Normal bilateral intervertebral neural foramina. L2-3: Normal endplates. Normal disc height, hydration and morphology. Normal bilateral facet joints. Normal central canal and bilateral lateral recesses. Normal bilateral intervertebral neural foramina. L3-4: Mild bilobed disc protrusion with interval development of a large left paracentral and preforaminal disc extrusion produces moderate spinal stenosis, moderate right lateral recess stenosis with abutment of the right L4 nerve root, severe left lateral recess stenosis with effacement the left L4 nerve root and mild bilateral neural foraminal stenosis. L4-5: Moderate bilateral facet hypertrophy and ligament flavum hypertrophy. Enlarging broad disc protrusion which is now large produces severe spinal stenosis with severe bilateral lateral recess stenosis with effacement of the L5 nerve roots bilaterally and moderate bilateral neural foraminal stenosis with abutment of the exiting L4 nerve roots bilaterally. L5-S1: Moderate bilateral facet hypertrophy and ligament flavum hypertrophy. No change in the moderate broad disc protrusion asymmetric to the left which produces moderate spinal stenosis, moderate right lateral recess stenosis with abutment of the right S1 nerve root, severe left lateral recess stenosis with effacement of the left S1 nerve root, moderate right neural foraminal stenosis and severe left neural foraminal stenosis with effacement the left L5 nerve root laterally. Normal visualized sacral ala. Normal visualized paraspinous soft tissue structures. MRI/Spine Lumbar (Routine) IMPRESSION: Worsening degenerative disc disease as described above. Electronically Signed: Kosta Ortiz MD at 17:04 EST Tel , Service support ,
== END ==
PROVIDERS: PCP Family Medicine; Referring Provider Anesthesiology Pain Medicine; Visit Provider Anesthesiology Pain Medicine
DX: M54.9 Dorsalgia, unspecified (principal); M79.606 Pain in leg, unspecified
CPT/HCPCS: 72148

== ENCOUNTER → 2020-07-24 14:56 | Outpatient (CLI) | payer MEDICARE, SELFPAY ==
[2020-07-24 16:05] LABS: Amphetamine Urine VISTA NEGATIVE (<1000 ng/mL); Barbiturate Urine VISTA NEGATIVE (< 200 ng/mL); Benzodiazepine Urine VISTA NEGATIVE (< 200 ng/mL); Cocaine Urine VISTA NEGATIVE (< 300 ng/mL); Ecstacy Urine VISTA NEGATIVE (< 500 ng/mL); Methadone Urine VISTA NEGATIVE (< 300 ng/mL); PCP Urine VISTA NEGATIVE (< 25 ng/mL); THC Urine VISTA NEGATIVE (< 50 ng/mL); Vista UDS pH Range 6
== END ==
PROVIDERS: PCP Family Medicine; Referring Provider Anesthesiology Pain Medicine; Visit Provider Anesthesiology Pain Medicine
DX: F11.20 Opioid dependence, uncomplicated (principal)
CPT/HCPCS: 80307

== ENCOUNTER → 2021-02-05 12:33 | Outpatient (CLI) | payer MEDICARE, SELFPAY ==
[2021-02-05 13:51] LABS: Amphetamine Urine VISTA NEGATIVE (<1000 ng/mL); Barbiturate Urine VISTA NEGATIVE (< 200 ng/mL); Benzodiazepine Urine VISTA NEGATIVE (< 200 ng/mL); Cocaine Urine VISTA NEGATIVE (< 300 ng/mL); Ecstacy Urine VISTA NEGATIVE (< 500 ng/mL); Methadone Urine VISTA NEGATIVE (< 300 ng/mL); PCP Urine VISTA NEGATIVE (< 25 ng/mL); THC Urine VISTA NEGATIVE (< 50 ng/mL); Vista UDS pH Range 6
== END ==
PROVIDERS: PCP Family Medicine; Referring Provider Anesthesiology Pain Medicine; Visit Provider Anesthesiology Pain Medicine
DX: F11.20 Opioid dependence, uncomplicated (principal)
CPT/HCPCS: 80307

== ENCOUNTER → 2021-08-21 | Outpatient (CLI) | payer MEDICARE, SELFPAY ==
--- NOTE | 2021-08-21 13:45 | MRI_ITS ---
EXAM: MR LUMBAR SPINE WITHOUT AND WITH INTRAVENOUS CONTRAST CLINICAL INDICATION: pain Technologist Notes Other, PAIN RADIATES DOWN BOTH LEGS AND LOW BACK/BUTTOCK PAIN. HX OF PROSTATE CANCER (IN REMISSION). TECHNIQUE: Multiplanar and multisequence MR images of the lumbar spine without and with intravenous contrast. This report was created using [employer] report STEARCLEAR technology. CONTRAST: IV 15CC DOTAREM COMPARISON: May 28 2020 1:47pm FINDINGS: VERTEBRAE: See below. SPINAL CORD: Unremarkable. Normal position and signal intensity of the conus medullaris. SOFT TISSUES: Unremarkable. DISCS/SPINAL CANAL/NEURAL FORAMINA: L1-L2: L1-2: Loss of intervertebral disc height. There is endplate spondylosis of the vertebral body. Normal central canal and intervertebral neuroforamina. There is bilateral facet arthropathy. L2-L3: L2-3: Loss of intervertebral disc height. There is endplate spondylosis of the vertebral body. Normal central canal and intervertebral neuroforamina. There is bilateral facet arthropathy. There is bilateral ligamentum flavum thickening. L3-L4: L3-4: Loss of intervertebral disc height. There is endplate spondylosis of the vertebral body. Bilateral narrowing of the intervertebral neuroforamina with compression of the exiting nerve roots. There is bilateral facet arthropathy. Left para central disc herniation is extending into the left neural foramina. There is narrowing of the lateral recess on the left. There is bilateral ligamentum flavum thickening. Mild spinal stenosis. L4-L5: L4-5: Loss of intervertebral disc height. There is endplate spondylosis of the vertebral body. Bilateral narrowing of the intervertebral neuroforamina with compression of the exiting nerve roots. There is bilateral facet arthropathy. Central disc herniation is enlarged. There is narrowing of the lateral recess. There is bilateral ligamentum flavum thickening. Severe spinal stenosis. Discogenic endplate changes. L5-S1: Loss of intervertebral disc height. There is endplate spondylosis of the vertebral body. Bilateral narrowing of the intervertebral neuroforamina with compression of the exiting nerve roots. There is bilateral facet arthropathy. Central disc herniation is stable. Normal spinal canal and lateral recesses. MRI/Spine Lumbar W/WO Contrast IMPRESSION: 1. L3-4: Loss of intervertebral disc height. There is endplate spondylosis of the vertebral body. Bilateral narrowing of the intervertebral neuroforamina with compression of the exiting nerve roots. There is bilateral facet arthropathy. Left para central disc herniation is extending into the left neural foramina. There is narrowing of the lateral recess on the left. There is bilateral ligamentum flavum thickening. Mild spinal stenosis. 2. L4-5: Loss of intervertebral disc height. There is endplate spondylosis of the vertebral body. Bilateral narrowing of the intervertebral neuroforamina with compression of the exiting nerve roots. There is bilateral facet arthropathy. Central disc herniation is enlarged. There is narrowing of the lateral recess. There is bilateral ligamentum flavum thickening. Severe spinal stenosis. Discogenic endplate changes. 3. Loss of intervertebral disc height. There is endplate spondylosis of the vertebral body. Bilateral narrowing of the intervertebral neuroforamina with compression of the exiting nerve roots. There is bilateral facet arthropathy. Central disc herniation is stable. Electronically Signed: Lexx Ornelas MD at 16:27 EDT ,
[2021-08-21 14:01] LABS: CREATININE FINGERSTICK < 0.9 mg/dL (0.70-1.30); EGFR FINGERSTICK > 60.0000 mL/min (>60)
== END | disposition home or self-care (01) ==
PROVIDERS: PCP Family Medicine; Visit Provider Orthopaedic Surgery
DX: M54.16 Radiculopathy, lumbar region (principal)
CPT/HCPCS: 72158; A9575

== ENCOUNTER 2021-09-09 07:50 | Observation (INO) | payer MEDICARE, SELFPAY ==
--- NOTE | 2021-09-03 14:03 | EKG12_ITS ---
Test Reason : PREOP Blood Pressure : / mmHG Vent. Rate : 079 BPM Atrial Rate : 079 BPM P-R Int : 128 ms QRS Dur : 110 ms QT Int : 384 ms P-R-T Axes : 074 012 046 degrees QTc Int : 440 ms Normal sinus rhythm Nonspecific ST abnormality Abnormal ECG Confirmed by LESLIE ROMEO, BRAYDON ([id number]), manager editorial EDUAR COLLINS ([id number]) on 09/04/2021 1:51:37 PM Referred By: Mickey Forman Confirmed By:LAURENCE NELSON MD
[2021-09-03 15:19] LABS: Absolute Lymphocyte Count 2.01 X10^3/uL (0.83-4.51); Absolute Neutrophil Count 6.2 X10^3/uL (2.0-7.7); Basophil# 0.05 X10^3/uL; Basophil% 0.5 % (0-1); Eosinophil# 0.22 X10^3/uL; Eosinophils% 2.4 % (0-5); Lymphocyte # 2.01 X10^3/ul (0.83-4.51); Lymphocyte % 21.7 % (19-41); Mean Corp Hgb Conc 34.1 g/dL (32-36); Mean Corpuscular Hgb 32.7 pg (27.0-32.0); Mean Corpuscular Volume 95.8 fL (80-94); Mean Platelet Vol. 9.2 fl (6.2-12.0); Monocyte# 0.69 X10^3/uL; Monocyte% 7.5 % (0-10); NRBC Flagged by Analyzer 0 % (0-5); Neutrophil # 6.22 X10^3/uL (2.7-7.7); Neutrophil % 67.3 % (47-70); Platelet Count 309 K/mm3 (150-450); RBC Distribution Width CV 11.7 % (11.6-14.6); RBC Distribution Width SD 40.9 fl (35.1-43.9); Red Blood Count 4.28 M/mm3 (4.6-6.2); White Blood Count 9.3 K/mm3 (4.4-11.0)
[2021-09-04 09:57] LABS: HIV - WCH Non-Reactive (Nonreactive); Hepatitis B Surface Antibody Non-Reactive; Hepatitis C Antibody Non-Reactive (Nonreactive)
--- NOTE | 2021-09-08 18:11 | HP.PCM_ITS ---
History and Physical Date of Admission: 09/09/21 [facility] [id number] [address] [phone] Visit Reasons: Spine pain chronic Allergies No Known Allergies Allergy (Verified 08/10/21 13:30) Medications gabapentin 300 mg capsule 300 mg PO TID 11/29/17 [History Confirmed 08/10/21] Percocet 5-325 5 - 325 mg PO Q4H PRN PRN #45 tab MDD 12 12/27/17 [Rx Confirmed 08/10/21] PFSH Medical History Prostate cancer Surgical History h/o bunionectomy H/O cervical spine surgery Family History Brother Cancer Mother Cancer COPD (chronic obstructive pulmonary disease) Social History Smoking Status: Former smoker HPI Spine pain chronic Details: Parts of this documentation were recorded by a scribe, this documentation accurately reflects the service provided and the decisions made by me, Dr. Mickey Forman, DO 08/10/21 1322. ISAURA SKINNER is a 71 year old M here today for I will dictate Mr. Skinner's note myself as we cannot seem to come up with the scribe's note. Nonetheless his chief complaint is not low back pain is pain in the right buttocks that radiates down the back of the right thigh and down the back of the right calf sometimes going to the ankle. He has some pain on the left but the main pain is on the right he does not have that much low back pain per se. He had back surgery for left leg pain in 2018 it did make his leg pain better but is its not completely gone. He denies any bowel or bladder dysfunction. He denies history of unexplained weight loss night fever sweats or chills. He states that the pain on a scale of 0-10 when it is bad is a 10 and when it is good it still a 5. It particularly bothers him at night. Activity definitely makes it worse. On examination he has pain into the buttocks and right thigh with extension of his lumbar spine but not with flexion. He has good motor strength of all major muscle groups of both lower extremities. He has a 1+ patella and 1+ Achilles reflexes bilaterally. He has no long tract signs. Clonus is absent Babinski's are downgoing. There is no current MRI scan he did have 1 in 2018. However there is been a significant interval change for the worst. We will order a new MRI scan of the lumbar spine with contrast. I will see him after that study and make further recommendations. Coding Level of Care Code Off vis,new,level 3 Diagnoses Lumbar radiculopathy M54.16
[2021-09-09] VITALS (13 sets, daily range): BP systolic 132–150; BP diastolic 85–106; PULSE 66–84; RESP 12–16; TEMP 36.1–37.3; O2SAT 97–100; BMI 21.8
[2021-09-09] MEDS: Lactated Ringers 1,000 ML 15 ML IV (06:08)
[2021-09-09] MEDS: Acetaminophen 500 MG Tablet 1000 MG PO ×3 (06:09→22:04)
[2021-09-09 06:50] LABS: Bedside Glucose 98 mg/dL (74-106)
[2021-09-09] MEDS: Cefazolin 2 GM in 0.9% Normal Saline 100 ML IV (07:28)
--- NOTE | 2021-09-09 08:40 | RAD_ITS ---
STUDY: X-RAY - LUMBAR SPINE REASON FOR EXAM: Male, 71 years old. LAMINECTOMY L4-L5 BILATERAL TECHNIQUE: 1 view(s) of the lumbar spine were obtained. COMPARISON: None FINDINGS: The localization instrument is posterior to the L5-S1 disc space level. RAD/Spine 1 View Any Level IMPRESSION: The localization instrument is posterior to the L5-S1 disc space level. Electronically Signed: Man Alfredo MD at 9:40 EDT ,
--- NOTE | 2021-09-09 09:00 | RAD_ITS ---
STUDY: X-RAY - LUMBAR SPINE REASON FOR EXAM: Male, 71 years old. LAMINECTOMY L4-5 IMAGE 2 TECHNIQUE: 1 view(s) of the lumbar spine were obtained. COMPARISON: None FINDINGS: The localization instrument is seen posterior to the L4-L5 disc space level. RAD/Spine 1 View Any Level IMPRESSION: The localization instrument is seen posterior to the L4-L5 disc space level. Electronically Signed: aMn Alfredo MD at 9:40 EDT ,
[2021-09-09] MEDS: Thrombin 5,000 IU Kit (PSA) 5,000 IU Vial 5000 IU TOPICAL ×2 (09:13→09:33)
--- NOTE | 2021-09-09 10:13 | OP.PCM_ITS ---
Report of Operation Date of Procedure: 09/09/21 Description of Surgical Findings:: Preoperative diagnosis: Severe spinal stenosis L4-5 Postoperative diagnosis: The same Procedure: Lumbar laminectomy decompression L4-5 CPT code 04921 Surgeon: Dr. Forman nurse practitioner physician assistant: Rhiannon RICE Anesthesia: General endotracheal administered by [facility] EBL: 40 cc Drains: Medium Hemovac Complications: None Procedure: Patient was taken to the OR where he was placed under general endotra cheal anesthesia while still on his gurney. A Desir catheter was inserted. Neuro monitoring placed their leads on the patient. He was then moved to the prone position on the Virgil frame. After proper positioning with care to protect his bony prominences his genitalia the brachial plexus on both sides the ulnar nerves at both elbows facial features the neck the back was prepped and draped in standard fashion. I then made a longitudinal incision centered over L4-5. Subcutaneous tissues were incised the length of skin incision. I elevated the paravertebral muscles off the lamina of 4 and the top of 5 on the left side. Then put a marker in place and took a x-ray. It seemed to be at L4- 5 though the radiologist stated that we were at 5 1 which I disagreed with. So I had them come back and take another x-ray that took better when this time. And sure enough he confirmed that we were indeed at the L4-5 level. We then opened the opposite side elevating the paravertebral muscles off the lamina for the top of lamina 5 on the right side. Following this the self-retaining super slide retractor was put in place giving us good access to the spinous process and lamina of L4. First removed the spinous process of L4 with double-action rongeurs. We thinned down the lamina with a double-action rongeurs on both sides. Using a curette I then released the ligamentum flavum off the underside of the lamina of L4 and began the laminectomy. I opened both sides with 45 degree Kerrison rongeurs. I then split the ligamentum flavum in the middle and began removing ligamentum flavum from both the left and the right side. I was working on the left side at this time. This makes it easier to decompress the opposite side that is the right side which was his worst side with his worst leg pain. Slowly and carefully we were able to remove all the ligamentum flavum and open the lateral recess completely. Then moved to the other side of the table and remove the ligamentum flavum off the left side the same faint manner all the way out opening the lateral recess. This completely freed up the dura note that the fatty tissue was had been gradually pushed posteriorly over time as this is often the case. We checked the foramina they were both very open on both sides. Note that in the course of the case we thoroughly irrigated with copious amounts of sterile saline repeatedly. We had excellent hemostasis at the end of the case. I then placed an amniotic membrane directly on the dura to prevent adhesions in the future Gelfoam was placed over the top of that. Then inserted a medium Hemovac drain and closure was begun. We closed the lumbar fascia using [id number] suture with #1 Vicryl. This was followed by the closure of the subcutaneous tissues with 2-0 Vicryl in interrupted fashion and the skin was approximated using skin clips. Sterile dressings were then applied and the medium Hemovac tube was secured. We then recovered him in the OR we then moved into his hospital bed and taken to recovery in satisfactory condition. This is the end of operative summary on Clifford Skinner. This is Dr. Forman dictating.
[2021-09-09] MEDS: Lactated Ringers 1,000 ML 100 ML IV ×2 (11:10→20:25)
[2021-09-09] MEDS: Morphine 4 MG/ML Syringe IV ×2 (12:50→18:02)
[2021-09-09] MEDS: 0.9% Saline Lock 10 ML Syringe IV ×2 (12:50→18:02)
--- NOTE | 2021-09-09 13:38 | PN.HOSP_ITS ---
Documented by User: Dixie Brown NP, [employer]EC[employer]IVE-C 09/09/21 13:45 Subjective Subjective Patient seen and examined. Underwent lumbar laminectomy decompression L4-L5. Hospitalist services consulted for medical management. Reports increasing back pain post-op. Denies other medical history. Objective Data Objective Data Vital Signs: Vital Signs Temp Pulse Resp BP Pulse Ox 98.1 F 78 14 132/89 H 99 09/09/21 12:26 09/09/21 12:26 09/09/21 12:26 09/09/21 12:26 09/09/21 12:26 Oxygen Flow Rate (L/min) 4 Oxygen Delivery Method Nasal Cannula Weight: 161 lb 2 oz Body Mass Index (BMI) 21.8 Intake & Output: Intake and Output for Last 24 Hours 09/07/21 09/08/21 09/09/21 23:59 23:59 23:59 Intake Total 1212 / 1212 Output Total 810 / 810 Balance 402 / 402 Lab / Micro Data Result Diagrams: 09/03/21 14:21 Labs: Laboratory Results - last 24 hr 09/09/21 06:04: POC Glucose 98 Micro: Microbiology 09/03/21 14:21 Interface Orders Nasal Screen MRSA/MSSA - Final Radiography Diagnostic Testing: Radiology Impression Spine X-Ray 09/09/21 08:40 IMPRESSION: The localization instrument is posterior to the L5-S1 disc space level. Electronically Signed: Man Alfredo MD at 9:40 EDT , Spine X-Ray 09/09/21 09:00 IMPRESSION: The localization instrument is seen posterior to the L4-L5 disc space level. Electronically Signed: Man Alfredo MD at 9:40 EDT , Physical Exam Const alert, oriented x3 and no apparent distress Orientation / Consciousness: awake, oriented to person, oriented to place and oriented to time HEENT normocephalic and moist oral mucous membranes Eyes PERRL, EOMs intact bilaterally and conjunctivae normal Neck no lymphadenopathy Resp normal respiratory effort and clear to auscultation bilaterally Cardio regular rate, regular rhythm and no murmurs Peripheral Pulses: pulses 2+ throughout GI normal to inspection, nondistended, normoactive bowel sounds, non-tender and non-distended Extremity normal to inspection Skin no rashes or lesions noted Lesions: no lesions Rashes: no rashes Trauma: no lacerations or abrasions Neuro CN's II-XII intact bilaterally, no focal motor deficits, no sensory deficits noted and deep tendon reflexes 2+ bilaterally Psych mental status grossly normal and affect normal Assessment & Plan Assessment/Plan (1) Lumbar radiculopathy: (2) Spinal stenosis at L4-L5 level: PLAN: 1. Severe spinal stenosis L4-L5 status post lumbar laminectomy decompression L4-5- post op day 0. Management per surgery. Continue home gabapentin regimen. As needed pain regimen. PT/OT. Patient denies other past medical history. He is on gabapentin and as needed [place] per #1. DVT prophylaxis- SCDs This patient was seen by MAYRA Vicente under the supervision of Dr. Burns. Time spent examining patient, reviewing data and subsequent management of care: 10 minutes Documented by User: Dr. Girma Burns MD 09/09/21 14:09 Objective Data Lab / Micro Data Result Diagrams: 09/03/21 14:21 Charges/Coding Addendum Addendum: Dr. Burns: I personally reviewed the chart and examined the patient, and agree with the above findings. 71-year-old male with no past medical history presents to the hospital with chronic back pain with severe spinal stenosis between L4 and 5. He is status post a lumbar laminectomy decompression on L4-5. Medicine was consulted for medical management. We will check a CBC and a BMP in the morning to evaluate renal function as well as hemoglobin. Clinical time spent in all aspects of patient care: 15 minutes Visit Charges OBSV E&M: 64761 Subsequent observation care L2
[2021-09-09] MEDS: Cefazolin 1 GM/50 ML BAG IV (14:56)
[2021-09-09] MEDS: Gabapentin 300 MG Capsule 600 MG PO ×2 (14:57→22:04)
[2021-09-09] MEDS: oxyCODONE 5 MG Tablet PO ×2 (14:58→19:43)
[2021-09-09] MEDS: Ensure Surgery 237 ML LIQUID PO (16:46)
--- NOTE | 2021-09-09 16:55 | NURSING ---
ambulating bonilla w/therapy. walker and gait belt in use
[2021-09-09 20:59] LABS: Hepatitis A AB, Total Negative (Negative)
[2021-09-10] VITALS: BP 114/72; PULSE 68; RESP 16; TEMP 37.2; O2SAT 96
[2021-09-10] MEDS: Cefazolin 1 GM/50 ML BAG IV (00:09)
[2021-09-10] MEDS: oxyCODONE 5 MG Tablet PO ×4 (00:09→15:27)
[2021-09-10 04:53] VITALS: BP 131/79; PULSE 68; RESP 16; TEMP 37.2; O2SAT 97
[2021-09-10] MEDS: Acetaminophen 500 MG Tablet 1000 MG PO ×2 (05:02→13:07)
[2021-09-10] MEDS: Gabapentin 300 MG Capsule 600 MG PO ×2 (05:02→13:06)
[2021-09-10 05:41] LABS: Absolute Lymphocyte Count 1.46 X10^3/uL (0.83-4.51); Absolute Neutrophil Count 14.5 X10^3/uL (2.0-7.7); Basophil# 0.02 X10^3/uL; Basophil% 0.1 % (0-1); Eosinophil# 0.02 X10^3/uL; Eosinophils% 0.1 % (0-5); Hematocrit 35.1 % (40-54); Hemoglobin 12.2 g/dL (13.0-16.5); Lymphocyte # 1.46 X10^3/ul (0.83-4.51); Lymphocyte % 8.4 % (19-41); Mean Corp Hgb Conc 34.8 g/dL (32-36); Mean Corpuscular Hgb 32.9 pg (27.0-32.0); Mean Corpuscular Volume 94.6 fL (80-94); Mean Platelet Vol. 9.6 fl (6.2-12.0); Monocyte# 1.37 X10^3/uL; Monocyte% 7.9 % (0-10); NRBC Flagged by Analyzer 0 % (0-5); Neutrophil # 14.45 X10^3/uL (2.7-7.7); Neutrophil % 82.9 % (47-70); Platelet Count 255 K/mm3 (150-450); RBC Distribution Width CV 11.5 % (11.6-14.6); RBC Distribution Width SD 39.8 fl (35.1-43.9); Red Blood Count 3.71 M/mm3 (4.6-6.2); White Blood Count 17.4 K/mm3 (4.4-11.0)
[2021-09-10 06:21] LABS: Anion Gap 6 (5-15); BUN 11 mg/dL (7-18); Calcium,Total 8.5 mg/dL (8.5-10.1); Chloride 105 mmol/L (98-107); Creatinine, Serum 0.69 mg/dL (0.70-1.30); EST Glomerular Filtration Rate 121 mL/min (>60); Est Glom Filt Rate - Afr Amer 147 mL/min (>60); Estimated Creatinine Clearance 72.07 ml/min; Glucose 138 mg/dL (74-106); Potassium 3.2 mmol/L (3.5-5.1); Sodium Level 139 mmol/L (136-145)
[2021-09-10] MEDS: Ensure Surgery 237 ML LIQUID PO ×2 (07:59→11:38)
[2021-09-10 08:16] VITALS: BP 122/78; PULSE 52; RESP 14; TEMP 36.6; O2SAT 98
--- NOTE | 2021-09-10 09:00 | PN.HOSP_ITS ---
Subjective Subjective Doing well, pain is controlled and he has significant improvement in the radiation of his pain which necessitated the surgery in the first place. Objective Data Objective Data Vital Signs: Vital Signs Temp Pulse Resp BP Pulse Ox 97.9 F 52 L 14 122/78 H 98 09/10/21 08:16 09/10/21 08:16 09/10/21 08:16 09/10/21 08:16 09/10/21 08:16 Oxygen Flow Rate (L/min) 2 Oxygen Delivery Method Room Air Weight: 161 lb 2 oz Body Mass Index (BMI) 21.8 Intake & Output: Intake and Output for Last 24 Hours 09/09/21 09/10/21 09/11/21 03:59 03:59 03:59 Intake Total 3476.34 / 3476.34 300 / 300 Output Total 3565 / 3565 1025 / 1025 Balance -88.66 / -88.66 -725 / -725 Lab / Micro Data Result Diagrams: 09/10/21 04:34 09/10/21 04:34 Labs: Laboratory Results - last 24 hr 09/03/21 14:21: Hepatitis A Ab Total Negative 09/10/21 04:34: WBC 17.4 H, RBC 3.71 L, Hgb 12.2 L, Hct 35.1 L, MCV 94.6 H, MCH 32.9 H, MCHC 34.8, RDW Std Deviation 39.8, RDW Coeff of [place] 11.5 L, Plt Count 255, MPV 9.6, Immature Gran % (Auto) 0.600, Neut % (Auto) 82.9 H, Lymph % (Auto) 8.4 L, [place] % (Auto) 7.9, Eos % (Auto) 0.1, Baso % (Auto) 0.1, Absolute Neuts (auto) 14.5 H, Absolute Lymphs (auto) 1.46, Nucleated RBC % 0 09/10/21 04:34: Sodium 139, Potassium 3.2 L, Chloride 105, Carbon Dioxide 28.0, Anion Gap 6, BUN 11, Creatinine 0.69 L, Estim Creat Clear Calc 72.07, Est GFR (MDRD) Af Amer 147, Est GFR (MDRD) Non-Af 121, BUN/Creatinine Ratio 16.0, Glucose 138 H, Calcium 8.5 Micro: Microbiology 09/03/21 14:21 Interface Orders Nasal Screen MRSA/MSSA - Final Radiography Diagnostic Testing: Radiology Impression Spine X-Ray 09/09/21 08:40 IMPRESSION: The localization instrument is posterior to the L5-S1 disc space level. Electronically Signed: Man Alfredo MD at 9:40 EDT , Spine X-Ray 09/09/21 09:00 IMPRESSION: The localization instrument is seen posterior to the L4-L5 disc space level. Electronically Signed: Man Alfredo MD at 9:40 EDT , Physical Exam Const alert, oriented x3 and no apparent distress General Appearance: cooperative HEENT normocephalic and moist oral mucous membranes Eyes PERRL, EOMs intact bilaterally and conjunctivae normal Neck supple and no JVD Resp normal respiratory effort, no retractions, no use of accessory muscles and clear to auscultation bilaterally Auscultation: Negative for crackles, rales, rhonchi or wheezes Cardio regular rate, regular rhythm, S1 normal heart sound, S2 normal heart sound and no murmurs GI soft to palpation, non-tender and non-distended; Negative for hepatosplenomegaly Extremity no clubbing, cyanosis or edema Skin no rashes or lesions noted Neuro no focal motor deficits and no sensory deficits noted Psych affect normal Appearance: appropriate Assessment & Plan Assessment/Plan (1) Lumbar radiculopathy: (2) Spinal stenosis at L4-L5 level: PLAN: 1. Severe spinal stenosis L4-L5 status post lumbar laminectomy decompression L4-5 09/09/2021 ? Management per surgery. Continue home gabapentin regimen. ? As needed pain regimen. ? PT/OT. ? We will replace his potassium, his leukocytosis is reactive hemoglobin is stable at this point we will follow peripherally DVT: SCDs Charges/Coding Visit Charges OBSV E&M: 31279 Subsequent observation care L2
[2021-09-10] MEDS: Potassium Chloride Oral Tablet 20 MEQ 40 MEQ PO (10:00)
[2021-09-10 11:03] VITALS: BP 131/77; PULSE 83; RESP 14; TEMP 37.4; O2SAT 93
--- NOTE | 2021-09-10 11:03 | DCINST_ITS ---
Discharge Instructions Follow Up Care Test Results: Test results from this visit will be discussed in further detail at your follow-up appointment, if applicable. Discharge Plan Admission Admit Date/Time: 09/09/21 07:50 Primary Reason for Your Visit: back surgery Attending Provider: Mickey Forman Primary Care Provider: Nikhil Coto Consulting Providers: Girma Burns Discharge Orders/Prescriptions Prescriptions: No Action gabapentin 300 mg capsule 600 mg PO TID RF: 0 hydrocodone-acetaminophen 5-325 mg tablet 1 tab PO 4X/DAY RF: 0 Other Ambulatory Orders: CBC-Complete Blood Cnt No Diff (Routine) Timeframe: [id number] Facility: [facility] - Location: Laboratory Ordered By: Dr. Johnny Marquez 12 Lead EKG (Routine) Timeframe: [id number] Location: None Selected Ordered By: Dr. Johnny Marquez Referrals / Follow Up: Nikhil Coto MD [Primary Care Provider] - Disposition Disposition (needs filled in before D/C Order can be placed): Home, Self Care
--- NOTE | 2021-09-10 11:04 | DS.PCM_ITS ---
Providers Date of Admission: 09/09/21 Primary Care Physician: Dr. Nikhil Coto MD Consultations 09/09/21 10:38 Consult: Hospitalist Routine Consulting Provider: Girma Burns Reason for Consult: Medical Management EMERGENT Consult: No MD Notified: Yes Date Notified: 09/09/21 Time Notified: 12:35 Method of Notification: via spok Reason For Visit: LUMBAR LAMINECTOMY L4-5 Diagnosis Discharge Diagnosis (1) Lumbar radiculopathy: Status: Acute Code(s): M54.16 - Radiculopathy, lumbar region (2) Spinal stenosis at L4-L5 level: Status: Acute Code(s): M48.061 - Spinal stenosis, lumbar region without neurogenic claudication Medications at Discharge Home Medications gabapentin 300 mg capsule 600 mg PO TID cap 08/24/21 hydrocodone-acetaminophen 5-325mg 5mg-325mg 1 tab PO 4X/DAY tab 08/24/21 Hospital Course Summary of Care Provided Hospital Course: This patient was admitted yesterday 09 September. He underwent decompression laminectomy at the L4-5 level. Today he reports complete relief of his leg pain. The back pain is quite tolerable. The dressing was changed and the drain removed. The wound is dry and healing well. Neurologically he is intact. I gave him directions regarding his activities. He already has an appointment to see me in the office. Will be given oxycodone for pain. He is to take the dressing off on Tuesday and he can start showering on Tuesday. There is nothing to be put on the wound other than soap and water daily. He is to start walking more and more. He already has a walker at home that he will use for only a few days. This is the end of discharge summary on Clifford Skinner. This is Dr. Forman dictating. Weight / BMI Weight Weight: 161 lb 2 oz Body Mass Index (BMI) 21.8 ABG / Lab / Microbiology Data Result Diagrams: 09/10/21 04:34 09/10/21 04:34 Laboratory: Laboratory Results - last 24 hr 09/03/21 14:21: Hepatitis A Ab Total Negative 09/10/21 04:34: WBC 17.4 H, RBC 3.71 L, Hgb 12.2 L, Hct 35.1 L, MCV 94.6 H, MCH 32.9 H, MCHC 34.8, RDW Std Deviation 39.8, RDW Coeff of [place] 11.5 L, Plt Count 255, MPV 9.6, Immature Gran % (Auto) 0.600, Neut % (Auto) 82.9 H, Lymph % (Auto) 8.4 L, [place] % (Auto) 7.9, Eos % (Auto) 0.1, Baso % (Auto) 0.1, Absolute Neuts (auto) 14.5 H, Absolute Lymphs (auto) 1.46, Nucleated RBC % 0 09/10/21 04:34: Sodium 139, Potassium 3.2 L, Chloride 105, Carbon Dioxide 28.0, Anion Gap 6, BUN 11, Creatinine 0.69 L, Estim Creat Clear Calc 72.07, Est GFR (MDRD) Af Amer 147, Est GFR (MDRD) Non-Af 121, BUN/Creatinine Ratio 16.0, Glucose 138 H, Calcium 8.5 Microbiology: Microbiology 09/03/21 14:21 Interface Orders Nasal Screen MRSA/MSSA - Final Meaningful Use Info Meaningful Use Diagnoses (Choose all that apply): None applicable Discharge Plan Admission Admit Date/Time: 09/09/21 07:50 Primary Reason for Your Visit: back surgery Attending Provider: Mickey Forman Primary Care Provider: Nikhil Coto Consulting Providers: Girma Burns Discharge Orders/Prescriptions Prescriptions: No Action gabapentin 300 mg capsule 600 mg PO TID RF: 0 hydrocodone-acetaminophen 5-325 mg tablet 1 tab PO 4X/DAY RF: 0 Other Ambulatory Orders: CBC-Complete Blood Cnt No Diff (Routine) Timeframe: [id number] Facility: [facility] - Location: Laboratory Ordered By: Dr. Johnny Marquez 12 Lead EKG (Routine) Timeframe: [id number] Location: None Selected Ordered By: Dr. Johnny Marquez Referrals / Follow Up: Nikhil Coto MD [Primary Care Provider] - Disposition Disposition (needs filled in before D/C Order can be placed): Home, Self Care
--- NOTE | 2021-09-10 11:15 | CASEMGMT ---
Addendum entered by Nikko Santiaog 09/10/21 16:30: 1406: Pt made aware [facility] will contact him to make arrangements for bed delivery. 1600: DUTCH RASHID spoke w/pt's sister via phone and she states arrangements for bed delivery have not been made. Call to [facility]. He states he called pt's phone and left a VM, but has not heard back from pt. DUTCH RASHID to room. Pt states he does not have his phone on him. Call placed back to [facility]. Per [facility], they are unable to deliver bed to pt's home today and delivery can be made tomorrow. Pt spoke w/[facility] and he then spoke w/pt and notified him of same. Pt states he plans to make arrangements to stay w/someone overnight tonight. He denies having other discharge planning needs. Walker has been delivered to pt's room. Addendum entered by Nikko Santiago 09/10/21 16:28: Addendum @ 1406: [facility] states will contact pt and make arrangements for hospital bed delivery today. Addendum entered by Nikko Santiago 09/10/21 14:06: Marga JUDD, states pt inquiring about getting a bed delivered to his home. DUTCH RASHID to talk w/pt. Pt resting in bed. Sister @ bedside. Pt states Dr Forman recommended he did not go up the stairs for a few days. He states it would be too difficult to his adjustable bed from upstairs moved to the main floor and there is not enough room on the main floor for the full-sized bed. DUTCH RASHID discussed other options w/him such as staying w/someone else for a couple days while recovering. Sister, @ bedside, pointed to herself and was shaking her head yes while DUTCH RASHID @ bedside. Pt states he prefers not to stay w/anyone else. Pt made aware insurance most-likely will not cover for cost of hospital bed and [facility] unable to set up standard bed (not hospital bed), but he could purchase one on his own, if he would like. Pt interested in renting a hospital bed and he denies having any preference of DME co. Call placed to [employer]. Cost to rent a semi-electric hosp bed is $150/mo. Pt made aware and states he would be agreeable to paying for this out-of pocket. Call placed to [facility]. He states they would be able to deliver the hosp bed to pt's home today. They will need Credit card on filemade aware. Pt also inquiring about getting his own walker, as his sister did not bring hers w/her for him to use @ home. Will obtain script and fax to [facility] when available and walker to be delivered to pt's room today prior to discharge. Pt and sister deny having any further DME or home-going needs at this time. Original Note: RN CM FIRST FRONT VENTILATOR CM to room to meet with patient for initial transition planning/care coordination assessment. RN CM introduced self and role at [facility]. Pt voices understanding and consents to assessment at this time. Pt sitting up in chair in room in no distress at this time. Pt is A/O at this time and answers all questions appropriately. Care providers, pharmacy, and demographics verified/updated at this time. PCP: Dr Nikhil Coto Specialists: Dr Forman--ortho, Dr Hicks-pain mgmt Preferred Pharmacy: [facility] [employer] Insurance: [employer] Prescription Benefit: Yes LNOK: SisterDior Living Arrangements: Lives w/significant other in 2-story home w/basement. Bedroom is upstairs. Pt states he has been leaning forward on the stairs and crawling up them to get to his bedroom prior to surgery. Pt independent w/ADL's and IADL's. Sig other unable to provide much assistance, if needed, but sister can help. Transportation: Pt states drives self and states no transportation concerns at this time. Sister will take him home @ d/c. DME: States has the following DME: grab bars in shower. Pt also has access to walker, cane, BSC, and shower. Pt states no need for further DME at this time. HHC/SNF: No hx of either. No needs identified. Pt wishes to return home and states has no concerns with going home at time of discharge. CM to follow for any further discharge planning/needs. Pt voices no further concerns/needs at this time. Advised pt to ask for CM if any further questions/concerns/needs arise. Voices understanding. [facility] form explained re: Observation status for treatment of spinal stenosis, lumbar laminectomy decompression. Explained hospitalization will be paid per his insurance policy for Outpatient billing and condition will continue to be evaluated for Inpt necessity. Also let pt know that [facility] sends paper in the billing packet with their phone number if questions arise. Discussed Pharmacy section of [employer] form and self administered medication guideline. Pt verbalizes understanding and does not have further questions. Form signed, copy made and placed in chart, and original given to pt. PLAN: Home w/discharge plans in place. Sherif MONKN RN CM
[2021-09-10] MEDS: Ondansetron 4 MG/2 ML Vial IV (13:07)
[2021-09-10] MEDS: 0.9% Saline Lock 10 ML Syringe IV (13:07)
--- NOTE | 2021-09-10 15:57 | NURSING ---
pts sister, kenyetta, notified that pt is ready for pickup
--- NOTE | 2021-09-11 13:33 | CASEMGMT ---
DUTCH RASHID NOTE: DUTCH RASHID placed call to pt. Pt states [facility] delivered hospital bed to his home today and it's all set up. He states they were able to bring down a small twin bed to the main floor for him to sleep in last night until hospital bed could be delivered. He denies having any questions or further needs. Sherif MONKN DUTCH RASHID
== END 2021-09-10 16:57 | disposition home or self-care (01) ==
LOC: SDC 10:30 → MS3 10:30
PROVIDERS: Family Medicine; Admitting Provider Orthopaedic Surgery; PCP Family Medicine; Referring Provider Orthopaedic Surgery; Visit Provider Orthopaedic Surgery
PROC: (CPT 63030; principal; 2021-09-09 07:00)
DX: M54.16 Radiculopathy, lumbar region (principal); M48.061 Spinal stenosis, lumbar region without neurogenic claudication; Z79.899 Other long term (current) drug therapy; G89.29 Other chronic pain; Z87.891 Personal history of nicotine dependence
CPT/HCPCS: 63047; 00670; 36415; 72020; 80048; 82962; 83735; 85025; 86703; 86706; 86708; 86803; 87077; 87081; 93005; 96361; 96365; 96366; 96375; 96376; 97162; 99218; 99251; 99406; J7120; A4216; G0378; G0463; J2405; J3475; J3490

== ENCOUNTER → 2021-11-02 | Outpatient (CLI) | payer MEDICARE, SELFPAY ==
--- NOTE | 2021-11-02 16:04 | MRI_ITS ---
STUDY: MRI CERVICAL SPINE WITHOUT CONTRAST REASON FOR EXAM: Male, 71 years old. pain TECHNIQUE: Standardized fat and water weighted pulse sequences were obtained in the sagittal and axial planes. COMPARISON: 08/18/2018 FINDINGS: Straightening of alignment of the columns of the cervical spine is visualized. There is subtle anterolisthesis of C4 over C5 seen.. Anterior internal fixation of the C5, C6 and C7 vertebral bodies is visualized, blooming artifact visualized at these levels. No evidence of T2 prolongation within the marrow of the cervical vertebral bodies on the STIR sequence to suggest a fracture, edema or infiltrative process. Multilevel degenerative endplate changes visualized. No evidence of compression deformity of the cervical vertebral bodies. Disc desiccation visualized throughout the cervical spine, decreased intervertebral disc height is seen. No abnormal signal intensity visualized within the spinal canal. No abnormal signal intensity visualized in the posterior column. The neck soft tissues are unremarkable. C2-3: Degenerative disc osteophyte complex and bilateral uncovertebral disease visualized, no significant narrowing of the spinal canal is seen, mild to moderate narrowing of the right neural foramina and no significant narrowing of the left neuroforamina is seen at this level. C3-4: Degenerative disc osteophyte complex and bilateral uncovertebral disease visualized, no significant narrowing of the spinal canal is seen, moderate narrowing of bilateral neuroforamina is visualized at this level. C4-5: Degenerative disc of cirrhotic complex and bilateral uncovertebral disease is visualized, mild narrowing of the spinal canal and mild narrowing of bilateral neuroforamina seen at this level. C5-6: Degenerative disc osteophyte complex with suggestion of ossification with a left paracentral component, no significant narrowing of the neuroforamina is visualized at this level. C6-7: Degenerative disc osteophyte complex with opacification at this level, a right foraminal component is visualized with mild narrowing of the right lateral space, mild to moderate narrowing of the right neural foramina and mild narrowing of the left neuroforamina seen at this level.. C7-T1: Degenerative disc osteophyte complex and bilateral uncovertebral disease visualized, no significant narrowing of the spinal canal and no significant narrowing of bilateral neuroforamina is seen at this level.. MRI/Spine Cervical (Routine) IMPRESSION: Degenerative changes of the cervical spine demonstrate mild progression in comparison to the prior study, no evidence of acute osseous pathology is seen. Electronically Signed: Brandin Redd MD at 8:50 EDT ,
== END | disposition home or self-care (01) ==
LOC: MRI 16:04
PROVIDERS: PCP Family Medicine; Visit Provider Orthopaedic Surgery
DX: M54.12 Radiculopathy, cervical region (principal)
CPT/HCPCS: 72141

== ENCOUNTER → 2021-11-18 | Outpatient (CLI) | payer MEDICARE, SELFPAY ==
[2021-11-18 17:53] LABS: Amphetamine Urine VISTA NEGATIVE (<1000 ng/mL); Barbiturate Urine VISTA NEGATIVE (< 200 ng/mL); Benzodiazepine Urine VISTA NEGATIVE (< 200 ng/mL); Cocaine Urine VISTA NEGATIVE (< 300 ng/mL); Ecstacy Urine VISTA NEGATIVE (< 500 ng/mL); Methadone Urine VISTA NEGATIVE (< 300 ng/mL); PCP Urine VISTA NEGATIVE (< 25 ng/mL); THC Urine VISTA NEGATIVE (< 50 ng/mL); Vista UDS pH Range 6
== END | disposition home or self-care (01) ==
LOC: LAB 15:10
PROVIDERS: PCP Family Medicine; Referring Provider Anesthesiology Pain Medicine; Visit Provider Anesthesiology Pain Medicine
DX: F11.20 Opioid dependence, uncomplicated (principal)
CPT/HCPCS: 80307

== ENCOUNTER → 2023-05-11 | Outpatient (CLI) | payer MEDICARE, SELFPAY ==
--- NOTE | 2023-05-11 15:17 | NEURO ---
NCS and/or EMG Patient Report Ordering Doctor: Femi Miller DATE OF SERVICE: 05/11/23 Clifford presents for electrodiagnostic testing of the right upper limb. He reports intermittent pain and numbness in the right hand. He has neck pain with history of fusion. Electrodiagnostic findings: Right median motor nerve demonstrates normal distal latency and amplitude with borderline reduced conduction velocity. Right ulnar motor nerve demonstrates normal distal latency and amplitude with normal conduction velocity across the elbow. Sensory responses are within normal limits. Median and ulnar F-wave are normal. Needle EMG testing was performed in the right upper limb. All muscles tested showed no evidence of denervation with normal motor unit action potentials Electrodiagnostic impression: This is a normal electrodiagnostic study of the right upper limb. There is no electrodiagnostic evidence for peripheral neuropathy, including carpal tunnel or cubital tunnel syndrome. There is no electrodiagnostic evidence for cervical radiculopathy. Multi Select Codes Neurology Neurology Interp Codes: 19387-48 Musc test done w/n test comp (interp) and 18127-64 Nrv cndj test 7-8 studies (interp)
== END | disposition home or self-care (01) ==
LOC: PSN 13:55
PROVIDERS: PCP Family Medicine; Referring Provider Orthopaedic Surgery; Visit Provider Orthopaedic Surgery
DX: G56.01 Carpal tunnel syndrome, right upper limb (principal)
CPT/HCPCS: 95886; 95910

== ENCOUNTER → 2023-05-31 | Outpatient (CLI) | payer MEDICARE, SELFPAY ==
[2023-05-31 16:43] LABS: Amphetamine Urine VISTA NEGATIVE (<1000 ng/mL); Barbiturate Urine VISTA NEGATIVE (< 200 ng/mL); Benzodiazepine Urine VISTA NEGATIVE (< 200 ng/mL); Cocaine Urine VISTA NEGATIVE (< 300 ng/mL); Ecstacy Urine VISTA NEGATIVE (< 500 ng/mL); Methadone Urine VISTA NEGATIVE (< 300 ng/mL); PCP Urine VISTA NEGATIVE (< 25 ng/mL); THC Urine VISTA NEGATIVE (< 50 ng/mL); Vista UDS pH Range 6
--- OUTSIDE RECORDS SUMMARY | 2023-05-31 23:55 | XMS RPT_ITS | CCD ---
Author Name Unknown Address [id number] [place] [address] Organization [facility] Care Team Providers Care Director Cardiovascular Name Role Phone Pcp, No Primary Care Provider Nikhil Barrientos Primary Care Provider [phone] Nikhil Coto Unavailable Jorge Thomson Unavailable Willard Flores Unavailable Sheree Evans Unavailable Nikhil Coto Unavailable [phone] Nikhil Coto Primary Care Un available MD SHEREE EVANS Referring MD SHEREE Newsome Attending Dr. Nikhil Barrientos Primary Care Un available Dr. Antonio Kapoor Attending ABIGAIL Ortega Referring Unavailable NIKHIL COTO Primary Care Unavailable Medications Current Medications Medication Drug Class(es) Dates Sig (Normalized) Sig (Original) ibuprofen 200 mg oral tablet (1 source) Nonsteroidal Anti-inflammatory Drug take 1 tablet by mouth every six hours as needed Advil 200 mg oral tablet ; 1 tab(s) orally every 6 hours, As Needed Quantity: 0 Refills: 0 Ordered: 06-Aug-2020 Michelle Dietz Generic Substitution Allowed Completed/Discontinued Medications Medication Drug Class(es) Dates Sig (Normalized) Sig (Original) Acetaminophen / HYDROcodone (13 sources) Opioid Agonist Vicodin TABS Kunal ntity: 0 Refills: 0 Ordered: 05-Nov-2019 DO Active Problems Problem Classification Problem Date Documented Da te Episodic/Chronic Anal and rectal conditions (12 sources) Radiation proctitis; Translations: [Other specified disorders of rectum and anus] Episodic Calculus of urinary tract (20 sources) History of calculus of kidney; Translations: [Personal history of urinary calculi] Onset: 12-29-2022 Episodic Cancer of prostate (1 source) Malignant tumor of prostate; Translations: [Malignant neoplasm of prostate] Onset: 10-18-2013 10-18-2013 Chronic Cancer of prostate (12 sources) History of malignant neoplasm of prostate; Translations: [Personal history of malignant neoplasm of prostate] Episodic Genitourinary symptoms and ill-defined conditions (17 sources) Nocturia; Translations: [Nocturia] Episodic Nausea and vomiting (2 sources) Nausea and vomiting; Translations: [Nausea with vomiting] 08-11-2020 Episodic Nonspecific chest pain (10 sources) Chest wall pain; Translations: [Painful respiration] Episodic Other gastrointestinal disorders (12 sources) Occult blood in stools; Translations: [Nonspecific abnormal findings in stool contents] Episodic Other male genital disorders (12 sources) Male erectile dysfunction, unspecified; Translations: [Erectile dysfunction] Chronic Thyroid disorders (2 sources) Nontoxic single thyroid nodule; Translations: [Nontoxic single thyroid nodule] Onset: 05-12-2023 Chronic Unclassified (2 sources) VOMITING DIARRHEA 08-11-2020 Results Test Name Value Interpretation Reference Range Facil ity Vital Signs Date Time Vital Sign Value Performing Clinician Facility 12-29-2022 14:45-0400 Body mass index (BMI) [Ratio] 23.06 kg/m2 [facility] Phone: [employer] Work Phone: 12-29-2022 14:45-0400 Body surface area Derived from formula 1.99 m2 [facility] Phone: [employer] Work Phone: 12-29-2022 14:45-0400 Body weight 77.11 kg [facility] Phone: [email or web address] Phone: 12-29-2022 14:45-0400 Respiratory rate 16 /min [facility] Phone: [facility]Sv[facility] Work Phone: 12-30-2021 15:54-0400 Body mass index (BMI) [Ratio] 21.9 kg/m2 Nikhil T [employer] Work Phone: [facility]Dkryxzp-Fkjgxgg Work Phone: 12-30-2021 15:54-0400 Body surface area Derived from formula 1.95 m2 Nikhil T [employer] Work Phone: CM-Chnodnt-Mhurmwo Work Phone: 12-30-2021 15:54-0400 Body weight 73.26 kg Nikhil T [employer] Work Phone: TG-Bvpjobz-Rdbsxka Work Phone: 12-02-2021 12:57-0400 Body height 182.88 cm Nikhil T [employer] Work Phone: LC-Gqisstp-Tygzfwk Work Phone: 12-02-2021 12:57-0400 Body mass index (BMI) [Ratio] 21.62 kg/m2 Nikhil T [employer] Work Phone: MF-Qccoytw-Ccpvhoc Work Phone: 12-02-2021 12:57-0400 Body surface area Derived from formula 1.93 m2 Nikhil T [employer] Work Phone: GW-Waeqmno-Eodtuna Work Phone: 12-02-2021 12:57-0400 Body weight 72.29 kg Nikhil T [employer] Work Phone: DU-Sjsoyao-Tbxsxba Work Phone: 12-02-2021 12:57-0400 Diastolic blood pressure 92 mm[Hg] Nikhil T [employer] Work Phone: GG-Zspkpfc-Dpizbwp Work Phone: 12-02-2021 12:57-0400 Heart rate 74 /min Nikhil T [employer] Work Phone: OQ-Pwawlxk-Qyvjhmd Work Phone: 12-02-2021 12:57-0400 Systolic blood pressure 156 mm[Hg] Nikhil Coto Work Phone: TT-Ytprcfx-Rcicggj Work Phone: 11-17-2020 15:28-0400 Body height 182.88 cm Nikhil Coto Work Phone: [facility] Work Phone: 11-17-2020 15:28-0400 Body mass index (BMI) [Ratio] 21.72 kg/m2 Nikhil Coto Work Phone: [facility] Work Phone: 11-17-2020 15:28-0400 Body surface area Derived from formula 1.94 m2 Nikhil Coto Work Phone: [facility] Work Phone: 11-17-2020 15:28-0400 Body temperature 97.3 [degF] Nikhil Coto Work Phone: [facility] Work Phone: 11-17-2020 15:28-0400 Body weight 72.63 kg Nikhil Coto Work Phone: [facility] Work Phone: 11-17-2020 15:28-0400 Diastolic blood pressure 74 mm[Hg] Nikhil Coto Work Phone: [facility] Work Phone: 11-17-2020 15:28-0400 Heart rate 76 /min Nikhil Coto Work Phone: [facility] Work Phone: 11-17-2020 15:28-0400 SaO2% (BldA) [Mass fraction] 97 % Nikhil Coto Work Phone: [facility] Work Phone: 11-17-2020 15:28-0400 Systolic blood pressure 120 mm[Hg] Nikhil Coto Work Phone: [facility] Work Phone: 11-03-2020 15:43-0400 Body height 182.88 cm Nikhil Coto Work Phone: [facility] Work Phone: 11-03-2020 15:43-0400 Body mass index (BMI) [Ratio] 21.7 kg/m2 Nikhil Coto Work Phone: [facility] Work Phone: 11-03-2020 15:43-0400 Body surface area Derived from formula 1.94 m2 Nikhil Coto Work Phone: [facility] Work Phone: 11-03-2020 15:43-0400 Body weight 72.58 kg Nikhil Coto Work Phone: [facility] Work Phone: 11-03-2020 15:43-0400 Diastolic blood pressure 74 mm[Hg] Nikhil Coto Work Phone: [facility] Work Phone: 11-03-2020 15:43-0400 Heart rate 77 /min Nikhil Coto Work Phone: [facility] Work Phone: 11-03-2020 15:43-0400 Systolic blood pressure 146 mm[Hg] Nikhil Coto Work Phone: [facility] Work Phone: 08-11-2020 23:12-0400 Diastolic blood pressure 87 mm[Hg] Nikhil Coto Other Phone: [facility] 08-11-2020 23:12-0400 Heart rate 84 /min Nikhil Byrdess Other Phone: [facility] 08-11-2020 23:12-0400 Respiratory rate 16 /min Nikhil Furness Other Phone: [facility] 08-11-2020 23:12-0400 SaO2% (BldA) [Mass fraction] 100 % Nikhil Furness Other Phone: [facility] 08-11-2020 23:12-0400 Systolic blood pressure 121 mm[Hg] Nikhil Furness Other Phone: [facility] 08-11-2020 21:10-0400 Body height 182.8 cm Nikhil Byrdess Other Phone: [facility] 08-11-2020 21:10-0400 Body temperature 97.7 [degF] Nikhil Byrdess Other Phone: [facility] 08-11-2020 21:10-0400 Body weight 72.7 kg Nikhil Byrdess Other Phone: [facility] Encounters Encounter Date Encounter Type Care Provider Facility Start: 05-12-2023 End: 05-13-2023 ambulatory ABIGAIL Ramirez [facility] Start: 12-29-2022 Office outpatient vi sit 25 minutes Nikhil Daniela Coto Work Phone: [facility]A-Esrpyxj-Zalfobp Work Phone: Start: 12-29-[address] Nikhil Lassiter Facility:[id number] Start: 12-10-2022 AUDIT Nikhil Suarez Furn [employer] Work Phone: CG-Vthxtnv-Fhdxsdb Work Phone: Start: 12-01-2022 Chart Update Nikhil Suarez Furn [employer] Work Phone: EG-Qyetojw-Rgdfdmt Work Phone: Start: 12-30-2021 Patient encounter procedure Nikhil Suraez Furness Work Phone: OM-Phhllpr-Soaghnz Work Phone: Start: 12-30-[address] [facility] Facility:[id number] Start: 12-16-2021 Chart Update Nikhil bernal Work Phone: ME-Aeesopv-Mualbie Work Phone: Start: 12-02-2021 Office outpatient vi sit 25 minutes Nikhilgabe Coto Work Phone: US-Oahrsap-Xwjdpos Work Phone: Start: 11-09-2021 Chart Update Nikhil Suarez Furn gabe Work Phone: PI-Dirtvoi-Hwgqhwn Work Phone: Start: 11-17-2020 Office outpatient vi sit 15 minutes Nikhilgabe Coto Work Phone: [facility] [facility] Work Phone: Start: 08-29-2020 Chart Update Nikhil bernal Work Phone: NO-Upaahsq-Htnfkdt Work Phone: Start: 08-12-2020 Patient encounter procedure Willard Flores [facility] Start: 08-11-2020 End: 08-11-2020 Emergency department patient visit Jorge Thomson [facility] 10 Start: 04-25-2020 Office outpatient vi sit 15 minutes Nikhil Coto Work Phone: -[employer] [facility] Work Phone: Start: 11-30-1999 End: 11-30-1999 Patient encounter procedure Joey Arana Work Phone: [facility] Start: 11-30-1999 Results Only Joey White [facility] Work Phone: [facility] Procedures Date Procedure Procedure Detail Performing Clinician Start: 05-12-2023 US THYROID ABIGAIL ONEAL IN Start: 08-11-2020 End: 08-11-2020 EKG impression Jorge Thomson Start: 11-30-1999 CONVERTED SURGICAL PATHOLOGY Joey Arana Work Phone: Brachytherapy Nikhil T Furn [employer] Work Phone: Colonoscopy Nikhil T Furne ss Work Phone: Excision of bunion Nikhil Coto Work Phone: Needle biopsy of prostate Pa kassi Coto Work Phone: Procedure on back Nikhil Coto Work Phone: Procedure on neck Nikhil Coto Work Phone: Plan of Treatment Date Care Activity Detail Author Start: 12-29-2022 FUV, Provider: Sheree Evans II, Status: Pen, Time: 2:30 PM FUV, Provider: Sheree Evans II, Status: Pen, Time: 2:30 PM [facility] Work Phone: Start: 12-30-2021 CYSTOSCOPY, Provider: ROMAN CATHOLIC UROLOGY PROCEDURE RM,[id number], Status: Pen, Time: 3:30 PM CYSTOSCOPY, Provider: ROMAN CATHOLIC UROLOGY PROCEDURE RM,[id number], Status: Pen, Time: 3:30 PM [facility] Work Phone: Start: 11-27-2021 FUV, Provider: Sheree Evans II, Status: Pen, Time: 11:00 AM FUV, Provider: Sheree Evans II, Status: Pen, Time: 11:00 AM [facility] Work Phone: Start: 11-09-2021 FUV, Provider: Sheree Evans II, Status: Pen, Time: 3:00 PM FUV, Provider: Sheree Evans II, Status: Pen, Time: 3:00 PM [employer] [facility] Work Phone: Start: 11-03-2020 FUV, Provider: Sheree Evans II, Status: Pen, Time: 3:30 PM FUV, Provider: Sheree Evans II, Status: Pen, Time: 3:30 PM [employer] [facility] Work Phone: Start: 11-03-2020 Patient encounter procedure [facility] Urology [facility] Start: 08-12-2020 Patient encounter procedure Outpatient [place] [address] Start: 12-Aug-2020 13:10 Willard Flores Intent [facility] H/O Spinal surgery Previous back surgery [facility] H/O: surgery History of neck surgery [facility] History of colonoscopy History of colonos copy [facility] History of operative procedure on foot History of bunionectomy [facility] History of radiation therapy History of brachytherapy [facility] History of surgical procedure on mouth History of oral surgery [facility] Immunizations Immunization Date Immunization Notes Care Provider Desirae lewis 08-04-2020 Pfizer-BioNTech COVID-19 Vacc 30 MCG/0.3ML Intramuscular Suspension NikhilCinelan Work Phone: [employer] [facility] Work Phone: 07-13-2020 Pfizer-BioNTech COVID-19 Vacc 30 MCG/0.3ML Intramuscular Suspension [employer] Work Phone: -[employer] [facility] Work Phone: Payers Date Payer Category Payer Private Health Insurance [id number] 1950 Unknown [id number] 1950 Unknown [id number] 1950 Unknown [id number] Private Health Insurance [facility] [id number] Unknown Social History Date Type Detail Facility Tobacco smoking status NHIS Unknown if ever smoked [facility] Sex Assigned At Not on file [facility] Start: 08-11-2020 Occasional tob acco smoker [facility] Former smoker Former smoker -[employer] [facility] Work Phone: History of Present illness Narrative 12-25-2022 Note Date & Type Note Facility 12-25-2022 History of Presen t illness Narrative Patient has a hx of prostate ca. S/P Seeds 2012.....Most recent PSA was 0.05 on 12/25. Prior PSA was 0.14 on 11/23. Prior PSA was 0.10 on 08/22, prior was 0.10 on 08/2019. Prior PSA was 0.13 08/20... LUT's are chronic. Has some frequency and urgency. Has some mild hesitancy. Some weak stream intermittently. Denies dysuria and in October noticed hematuria. Nocturia x3.. Caffeine does worsen LUT's. PT is taking Cialis from [facility]. .. . Pt. has hx of kidney stones. No recent sx. Denies flank pain. Denies flank pain. Denies N/V and F/C. ED is chronic and oral medication works [employer] Work Phone: History of Present illness Narrative 11-23-2021 Note Date & Type Note Facility 11-23-2021 History of Presen t illness Narrative Patient has a hx of prostate ca. S/P Seeds 2012.....Most recent PSA was 0.14 on 11/23. Prior PSA was 0.10 on 08/22, prior was 0.10 on 08/2019. Prior PSA was 0.13 08/20... LUT's are chronic. Has some frequency and urgency. Has some mild hesitancy. Some weak stream intermittently. Denies dysuria and in October noticed hematuria. Nocturia x3.. Caffeine does worsen LUT's. PT is taking Cialis from [facility]. .. . Pt. has hx of kidney stones. No recent sx. Denies flank pain. Denies flank pain. Denies N/V and F/C. ED is chronic and oral medication works [facility]Mvytqkp-Mwwgqsi Work Phone: History of Present illness Narrative 11-23-2021 Note Date & Type Note Facility 11-23-2021 History of Presen t illness Narrative Patient has a hx of prostate ca. S/P Seeds 2012.....Most recent PSA was 0.14 on 11/23. Prior PSA was 0.10 on 08/22, prior was 0.10 on 08/2019. Prior PSA was 0.13 08/20... LUT's are chronic. Has some frequency and urgency. Has some mild hesitancy. Some weak stream intermittently. Denies dysuria and in October noticed hematuria. Nocturia x3.. Caffeine does worsen LUT's. PT is taking Cialis from [facility]. .. . Pt. has hx of kidney stones. No recent sx. Denies flank pain. Denies flank pain. Denies N/V and F/C. ED is chronic and oral medication works [facility]Axkktjd-Xuqbkmq Work Phone: History of Present illness Narrative 11-19-2019 Note Date & Type Note Facility 11-19-2019 History of Present illness Narrative Localized area of the left lateral chest near the armpit is been bothering for the last year. May be started hurt a little bit more worse and little more often over the last month or so. No change with eating, no change with cough shortness of breath, no change with movement or movement of the left arm.Very specific area near the axilla on the left which is tender to palpation specifically over the wall. No mass in the axilla no mass in the axillary tail the breast no mass in the left breastChest wall pain we will try a prednisone taper with a refill.He gets no better in a month or not helped by the prednisone taper, call and we will start with a chest x-ray. Talked about the possibility of a CT and a mammogram if things do not improve. [facility] Work Phone: Summary Purpose Family History No Family History Records FoundUnknown Family Member Name Dates Details Family history of cerebrovas cular accident (CVA): Sister(V17.1, Z82.3) Status:Active Family history of malignant neoplasm of brain: Brother(V16.8, Z80.8) Status:Active Unknown Family Member Name Dates Details Family history of cerebrovas cular accident (CVA): Sister(V17.1, Z82.3) Status:Active Family history of malignant neoplasm of brain: Brother(V16.8, Z80.8) Status:Active Unknown Family Member Name Dates Details Family history of cerebrovas cular accident (CVA): Sister(V17.1, Z82.3) Status:Active Family history of malignant neoplasm of brain: Brother(V16.8, Z80.8) Status:Active Unknown Family Member Name Dates Details Family history of cerebrovas cular accident (CVA): Sister(V17.1, Z82.3) Status:Active Family history of malignant neoplasm of brain: Brother(V16.8, Z80.8) Status:Active Unknown Family Member Name Dates Details Family history of cerebrovas cular accident (CVA): Sister(V17.1, Z82.3) Status:Active Family history of malignant neoplasm of brain: Brother(V16.8, Z80.8) Status:Active Unknown Family Member Name Dates Details Family history of cerebrovas cular accident (CVA): Sister(V17.1, Z82.3) Status:Active Family history of malignant neoplasm of brain: Brother(V16.8, Z80.8) Status:Active Unknown Family Member Name Dates Details Family history of cerebrovas cular accident (CVA): Sister(V17.1, Z82.3) Status:Active Family history of malignant neoplasm of brain: Brother(V16.8, Z80.8) Status:Active Unknown Family Member Name Dates Details Family history of cerebrovas cular accident (CVA): Sister(V17.1, Z82.3) Status:Active Family history of malignant neoplasm of brain: Brother(V16.8, Z80.8) Status:Active Unknown Family Member Name Dates Details Family history of malignant neoplasm of brain: Brother(V16.8, Z80.8) Status:Active Family history of cerebrovas cular accident (CVA): Sister(V17.1, Z82.3) Status:Active Unknown Family Member Name Dates Details Family history of cerebrovas cular accident (CVA): Sister(V17.1, Z82.3) Status:Active Family history of malignant neoplasm of brain: Brother(V16.8, Z80.8) Status:Active Unknown Family Member Name Dates Details Family history of cerebrovas cular accident (CVA): Sister(V17.1, Z82.3) Status:Active Family history of malignant neoplasm of brain: Brother(V16.8, Z80.8) Status:Active Advance Directives No Advanced Directives Records FoundNo Advanced Directives Records FoundNo Advanced Directives Records FoundNo Advanced Directives Records FoundNo Advanced Directives Records Found Chief Complaint DISCOMFORT IN CHEST/ ARMPIT/ NIPPLE AREA X 1 YEAR AFTER LIFTING BIRD CAGEYearly w/ PSAYearly w/ PSAHematuriaHematuriaYearly w/ kub and psa Additional Source Comments (unrecognized sect ion and content) No Status Records FoundNo Status Records FoundNo Status Records FoundNo Status Records FoundNo Status Records Found INFORMATION SOURCE (unrecogn ized section and content) DATE CREATED AUTHOR AUTHOR'S ORGANIZ ATION 12/03/2021 [employer] DATE CREATED AUTHOR AUTHOR'S ORGANIZ ATION 12/02/2022 [facility] DATE CREATED AUTHOR AUTHOR'S ORGANIZ ATION 01/06/2023 [facility] DATE CREATED AUTHOR AUTHOR'S ORGANIZ ATION 05/18/2023 [facility] Source Comments (unrecognize d section and content) In the event this informatio n is protected by the Federal Confidentiality of Alcohol and Drug Abuse Patient Records regulations: The Federal rules restrict any use of the information to criminally investigate or prosecute any alcohol or drug abuse patient.[facility] <item> Privacy Markings (unrecogniz ed section and content) Section Author: Stephenie Garcia PROHIBITION ON REDISCLOSURE OF CONFIDENTIAL INFORMATION This notice accompanies a disclosure of information concerning a client made to you with the consent of such client. FOR RECORDS PERTAINING TO PATIENTS WHO ARE OR HAVE BEEN ENROLLED IN A CHEMICAL DEPENDENCY/SUBSTANCEABUSE PROGRAM, SOME INFORMATION MAY BE OMITTED. This clinical summary was aggregated from multiple sources. Caution should be exercised in using it in the provision of clinical care. This summary normalizes information from multiple sources, and as a consequence, information in this document may materially change the coding, format and clinical context of patient data. In addition, data may be omitted in some cases. CLINICAL DECISIONS SHOULD BE BASED ON THE PRIMARY CLINICAL RECORDS. [facility]. provides no warranty or guarantee of the accuracy or completeness of information in this document.
== END | disposition home or self-care (01) ==
LOC: LAB 15:41
PROVIDERS: PCP Family Medicine; Referring Provider Anesthesiology Pain Medicine; Visit Provider Anesthesiology Pain Medicine
DX: F11.20 Opioid dependence, uncomplicated (principal)
CPT/HCPCS: 80307

== ENCOUNTER 2023-07-12 12:09 | Day surgery (SDC) | payer MEDICARE, SELFPAY ==
[2023-07-12 12:46] VITALS: BP 137/87; PULSE 67; RESP 16; TEMP 36.7; O2SAT 98; BMI 22.4
[2023-07-12] MEDS: Lactated Ringers 1,000 ML 15 ML IV (12:49)
--- NOTE | 2023-07-12 13:36 | PCM.HP.BLA ---
History and Physical Date of Admission: 07/12/23 [facility] [address] [place] [address] OFFICE VISIT Date of Service: 06/08/23 MR#: [id number] Acct: [id number] Name: ISAURA BUCK Rep #: [id number] : 1950 Provider: Dr. Femi Miller DO Age/Sex: 72/M [place] [facility] [place] [facility] [place] Status: Signed Intake Vital Signs 03/31/2315:16 Height 6 ft Intake Visit Reasons: RIGHT HAND Is patient in pain?: Yes Allergies No Known Allergies Allergy (Verified 06/08/23 13:59) Medications gabapentin 300 mg capsule 600 mg PO TID 08/24/21 [History Confirmed 06/08/23] hydrocodone-acetaminophen 5-325mg 5mg-325mg 1 tab PO 4X/DAY 08/24/21 [History Confirmed 06/08/23] tizanidine 4 mg tablet 4 mg PO 06/08/23 [History Confirmed 06/08/23] PFSH Medical History Anxiety Cancer Depression Former smoker Prostate cancer Thyroid nodule Wears glasses Surgical History h/o bunionectomy H/O cervical spine surgery Family History Brother CancerMother Cancer COPD (chronic obstructive pulmonary disease) Social History Smoking Status: Light Smoker (<10/day) alcohol intake: never substance use type: does not use HPI RIGHT HAND Details: This documentation accurately reflects the service provided and the decisions made by me, Dr. Femi Miller, 06/08/23 0820. Part of today?s visit was documented by [ ], acting as scribe. ISAURA BUCK is a 72 year old M here today for bilateral trigger finger. Patient notes that he has a left index finger and middle finger on the right triggering. Patient had a right middle finger trigger finger injection in 09/2022 which was helpful until recently. Patient notes that the triggering is worse in the morning. Patient would like to talk about having the knee done first as he needs to push up on his arms to stand. He had orthovisc injections in March which was helpful. He has pain into his knee. He has difficulty ambulating due to his pain. Patient has achiness and decreased strength. He does not bend his knee as he isnt comfortable. He had a steroid injection on 01/03/23 which was helpful although he still had to be very careful. Ortho Exam General General: Yes no acute distress Neurologic: Yes alert and Yes oriented x3 Psychologic: Yes reasonable and appropriate Right Wrist/Hand Skin/Wound: No wound(s) manually debrided then Saline/Betadine/, No Swelling, No Ecchymosis and Yes capillary refill normal A1 dat trigger: Yes (hypertrophied with tenderness) Right Wrist: Yes CMC Grind, tender to palpate carpometacarpal joint and Hypothenar Atrophy WRIST: burning senasation of ulnar side of index finger weakness with thumb opposition hypertrophied and tender A1 dat of the middle finger. He does have triggering of the middle finger Left Wrist/Hand Skin/Wound: No Swelling, No Ecchymosis and Yes capillary refill normal WRIST: There is triggering of the index digit with hypertrophy tender A1 dat Right Knee Patella Translation: 1 Left Knee Skin/Wound: No ecchymosis, No erythema and No swelling Homans Sign: No Knee ROM: Yes ROM-Extension -20 to 0 and Yes ROM-Flexion 0-140 (painful 120) Examination: Yes med jt line tenderness, No Lat jt line tenderness, No TTP Patellar tendon, No TTP Pes Anserine and No Illiotibial band tenderness Stability: NML: Anterior Drawer, NML: Posterior Drawer, NML: Valgus 0 and NML: Varus 0 Patella Translation: 1 Patella Grind: No Head: Normocephalic Atraumatic Chest: symmetrical rise, non-labored breathing, no audible wheeze Abdomen: no guarding, non-rigid Office Procedures Ortho Injections Injections Yes Knee Left and Yes Trigger Finger Injection Left Details: Obtained consent for injection. Under sterile conditions, injected the patient's left knee with 2cc bupivacaine, 2cc lidocaine and 1cc depomedrol. The patient tolerated the injection well without any noted complication. Patient should call our office if redness develops, pain worsens or if they have any concerns. Obtained consent for injection. Under sterile conditions, injected the patients left index finger with 1/2cc bupivacaine and 1/2cc depomedrol. The patient tolerated the injection well without any noted complication. Patient should call our office if redness develops, pain worsens or if they have any concerns. Office Meds Depo-Medrol 40 mg/mL suspension for injection Performing Provider: Femi Miller DO Performing Location: [facility] Administered by: Femi Miller DO on 06/08/23 14:17 Dose Route Admin Location Dispensed Lot Number Expiration Date NDC [employer] 60 mg intra-articular left knee, left A1 dat 1.5 mL [id number] 01/02/25 5598-7157-34 [facility] Supplemental Info 05/11/2023 EMG right upper extremity:Electrodiagnostic impression: This is a normal electrodiagnostic study of the right upper limb. There is no electrodiagnostic evidence for peripheral neuropathy, including carpal tunnel or cubital tunnel syndrome. There is no electrodiagnostic evidence for cervical radiculopathy. 01/03/2023 xray left knee: There is significant narrowing [id number] medial compartment there is moderate patellofemoral arthrosis 11/02/2021 MRI cervical spine: Anterior internal fixation C5-C6 and C7, multilevel degenerative endplate changes with decreased disc height, C2-C3 mild to moderate narrowing of the right neuroforamen secondary to disc osteophyte complex, C3-C4 moderate narrowing bilateral neuroforamina secondary to disc osteophyte complex , C6-C7 mild to moderate narrowing of the right neuroforamina secondary to disc osteophyte complex 07/21/2018 x-ray cervical spine: ACDF C5-C6-C7 moderate to severe degenerative disc disease C7- T1 Coding Level of Care Code Off vis,est,level 4 Diagnoses Trigger middle finger of right hand M65.331 Trigger finger location: middle finger Trigger finger, left middle finger M65.332 Primary osteoarthritis of left knee M17.12 Osteoarthritis type: primary CPT 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 () assistant 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.trig () Assessment and Plan Assessment and Plan (1) Trigger finger of right hand: Status: Acute Qualifiers: Trigger finger location: middle finger Qualified Code(s): M65.331 - Trigger finger, right middle finger (2) Trigger finger, left middle finger: Status: Acute (3) Left knee DJD: Status: Acute Qualifiers: Osteoarthritis type: primary Qualified Code(s): M17.12 - Unilateral primary osteoarthritis, left knee Orders: Orders Ortho Injections Today M65.332 - Trigger finger, left middle finger Plan Spoke with the patient about his options for his trigger fingers he wishes to proceed with right middle finger A1 dat release we discussed postoperative expectations and restrictions including 3 weeks of weightbearing restrictions and discussed the incision can be sensitive and tender to touch for several months. Patients left knee is also painful and spoke with him about his options- total knee arthroplasty, physical therapy, bracing and continued injection therapy. If he would like to proceed with a right middle finger A1 dat release, would like to have his left index digit A1 dat injected. He would like to have his knee injected although he isnt able to have knee replacement surgery for 3 months after the injection. Follow up for 2 week post op or sooner if pain, swelling, numbness or associated symptoms, or concerns develop. All questions answered. Patient in agreement of plan. 06/08/23 1449 <Electronically signed by Femi Miller DO> Date Femi Miller DO Cosigner Signature: Date (if applicable) I have examined the patient and the H&P has been reviewed. There are no clinical changes since date of exam.
--- NOTE | 2023-07-12 13:37 | PCM.OP.BLANK ---
Operative Report Date of Procedure: 07/12/23 Preoperative diagnosis; right middle digit trigger finger Postoperative diagnosis; same Procedure: Right middle digit A1 dat release Anesthesia: Local with MAC Tourniquet time; 10 minutes 250 mm Hg Complications: None Indication for procedure; This is a 72-year-old male with symptoms consistent with trigger finger. Risks benefits and alternatives were reviewed including risks of bleeding infection nerve tendon tissue damage need for further surgery and continued pain and symptoms, hypersensitivity to scar/incision and recurrence. Procedure; The patient was met in the preoperative holding area the operative extremity was identified by both patient and physician and was marked the patient was met by anesthesia and brought back to the operating room and transferred to the operating table in the supine position. Aanesthesia was started. A well-padded tourniquet was placed on the operative upper extremity. The patient was prepped and draped in the usual sterile fashion. A timeout was called to ensure the proper patient procedure and extremity were being contemplated. 0.5 percent Marcaine was injected into the incisional area. Esmarch was used tourniquet was inflated. 15 blade scalpel was used to make a longitudinal incision directly over the A1 dat was carried down through the subcutaneous tissue Alyssa retractors placed radial and ulnar protecting the digital nerves and a Ragnell retractor was used at the apex of the incision under direct visualization a deep blade scalpel was used to release the A1 dat. The wound was thoroughly irrigated and closed with 4-0 nylon vertical mattress edges. Dressing was applied in the form of Xeroform 4 x 4 web roll and an Rodolfo wrap. Patient tolerated the procedure well was brought back to the PACU in stable condition.
[2023-07-12] MEDS: Cefazolin 2 GM in 0.9% Normal Saline (100mL Bag) 100 ML IV (14:00)
[2023-07-12] MEDS: Lidocaine 1% /Epi 1:100 (20ml) 20 ML Vial (14:14)
--- NOTE | 2023-07-12 14:26 | DCINST_ITS ---
Discharge Instructions Diet Discharge Diet: No restrictions Dressing / Incision Call your doctor if you observe: Shortness of breath and Chest pain Additional Dressing/Incision Instructions:: Ice and elevate operative extremity next 72 hours. Keep dressing on clean and dry for 72 hours (3 days) then may remove and allow warm antibacterial soapy water to rinse over incision daily but do not submerge until sutures are out. Then apply bandaid over incision and change daily. encourage finger range of motion. Not lift more than 1/2 pound. Must keep clean, minimize narcotic use only as needed and directed, may use OTC NSAID and Tylenol to supplement/substitute for pain control. Follow Up Care Please Follow Up With: Femi Miller DO When: 2 weeks Test Results: Test results from this visit will be discussed in further detail at your follow- up appointment, if applicable. Discharge Plan Admission Primary Reason for Your Visit: Right middle finger A1 dat release Attending Provider: Femi Miller Primary Care Provider: Nikhil Coto Discharge Orders/Prescriptions Prescriptions: Continued gabapentin 300 mg capsule 600 mg PO Q4H hydrocodone-acetaminophen 5-325 mg tablet 1 tab PO 4X/DAY Patient Comments: TAKE 1 TABLET BY MOUTH FOUR TIMES DAILY FOR 28 DAYS tizanidine 4 mg tablet 4 mg PO QHS Patient Comments: Take 1 oral Every night at bedtime for 28 Days ibuprofen [Advil] 200 mg tablet 200 mg PO Q4H PRN (Reason: pain) Referrals / Follow Up: Nikhil Coto MD [Primary Care Provider] - Disposition Disposition (needs filled in before D/C Order can be placed): Home, Self Care
[2023-07-12 14:30] VITALS: BP 117/72; BP 137/87; PULSE 64; RESP 16; TEMP 37.4; O2SAT 95
[2023-07-12 14:35] VITALS: BP 111/66; BP 137/87; PULSE 64; RESP 14; O2SAT 94
[2023-07-12 14:40] VITALS: BP 126/80; BP 137/87; PULSE 63; RESP 14; O2SAT 93
[2023-07-12 14:46] VITALS: BP 135/82; BP 137/87; PULSE 61; RESP 16; TEMP 37.2; O2SAT 93
[2023-07-12 15:12] VITALS: BP 137/87
== END 2023-07-12 15:14 | disposition home or self-care (01) ==
LOC: SDC 12:16 → WP 12:17 → AC 12:22
PROVIDERS: PCP Family Medicine; Referring Provider Orthopaedic Surgery; Visit Provider Orthopaedic Surgery
PROC: (CPT 26055; principal; 2023-07-12 13:50)
DX: M65.331 Trigger finger, right middle finger (principal); M17.12 Unilateral primary osteoarthritis, left knee; M65.332 Trigger finger, left middle finger; F17.200 Nicotine dependence, unspecified, uncomplicated
CPT/HCPCS: 26055; 01810; J7120; J2405

== ENCOUNTER 2023-08-09 06:01 | Day surgery (SDC) | payer MEDICARE, SELFPAY ==
[2023-08-09] MEDS: Lactated Ringers 1,000 ML 15 ML IV (06:39)
[2023-08-09 06:41] VITALS: BP 157/96; PULSE 72; RESP 16; TEMP 36.9; O2SAT 99; BMI 22.7
--- NOTE | 2023-08-09 07:20 | HP.PCM_ITS ---
History and Physical Date of Admission: 08/09/23 [facility] [address] [place] [address] OFFICE VISIT Date of Service: 07/25/23 MR#: [id number] Acct: [id number] Name: ISAURA BUCK Rep #: [id number] : 1950 Provider: Dr. Femi Miller DO Age/Sex: 72/M [place] [facility] [place] Status: Signed Intake Vital Signs 07/12/2411:46 Height 6 ft Intake Visit Reasons: RIGHT HAND Is patient in pain?: No Allergies No Known Allergies Allergy (Verified 07/25/23 13:43) Medications gabapentin 300 mg capsule 600 mg PO Q4H 08/24/21 [History Confirmed 07/25/23] hydrocodone-acetaminophen 5-325mg 5mg-325mg 1 tab PO 4X/DAY 08/24/21 [History Confirmed 07/25/23] tizanidine 4 mg tablet 4 mg PO QHS 06/08/23 [History Confirmed 07/25/23] ibuprofen 200 mg tablet (Advil) 200 mg PO Q4H PRN pain 06/23/23 [History Confirmed 07/25/23] PFSH Medical History (Updated 07/25/23 @ 14:[address] Femi Miller DO) Anxiety Arthritis Cancer Depression History of pain when walking History of steroid therapy Injury of head and neck Leg cramps Migraine headache RBBB Sciatic leg pain Smoker Wears glasses Wears hearing aid Surgical History (Updated 06/23/23 @ 14:48 by Destinee Brown) h/o bunionectomy H/O cervical spine surgery History of lumbar laminectomy Family History Brother CancerMother Cancer COPD (chronic obstructive pulmonary disease) Social History Smoking Status: Light Smoker (<10/day) alcohol intake: never substance use type: does not use HPI RIGHT HAND Details: This documentation accurately reflects the service provided and the decisions made by me, Dr. Femi Miller DO 07/25/23 1340. Part of today?s visit was documented by Eli Barnes, acting as scribe. ISAURA BUCK is a 72 year old M here today for s/p Right middle digit A1 dat release dos 07/12/23. Patient notes that he is doing better. He no longer has any triggering. Patient notes that he isnt able to full extend his finger. Patient denies any redness or drainage from his incision. He denies any numbness or tingling. He denies any pain medication for his hand. He states that he also had left knee pain. Patient also complains of left index finger triggering and wishes to have it released next. Ortho Exam General General: Yes no acute distress Neurologic: Yes alert and Yes oriented x3 Psychologic: Yes reasonable and appropriate Right Wrist/Hand Skin/Wound: Yes healing and Yes suture/drew removed WRIST: Sutures removed incision well-approximated no signs of infection he has near full extension and near full flexion there is no triggering or concern Left Wrist/Hand WRIST: Hypertrophy and ttp A1 dat index finger. Palpable mild triggering likely small synovial cyst present off dat Right Foot/Ankle Skin/Wound: Yes suture/drew removed Head: Normocephalic Atraumatic Chest: symmetrical rise, non-labored breathing, no audible wheeze Abdomen: no guarding, non-rigid Coding Level of Care Code Off vis,est,level 3 Diagnoses Trigger middle finger of right hand M65.331 Trigger finger location: middle finger Orthopedic aftercare Z47.89 Trigger finger, left index finger M65.322 Assessment and Plan Assessment and Plan (1) Trigger finger of right hand: Status: Acute Qualifiers: Trigger finger location: middle finger Qualified Code(s): M65.331 - Trigger finger, right middle finger (2) Orthopedic aftercare: (3) Trigger finger, left index finger: Status: Acute Plan He should work on finger extension and flexion to prevent stiffness. He may do formal occupational therapy if he would prefer, but he does not. He should wash his hands daily. Patient should cover his incision when doing activities that are dirty, such as gardening or takig care of his birds. Spoke with the patient about his left knee. Patients options- bracing, injections, oral anti-inflammatories, total knee arthroplasty. 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 He sees Dr Hicks and there should be a discussion with Dr Hicks about managing his pain post op. Recommended the patient ween down or decrease use about 6 weeks prior to surgery. Patient would like to move forward with a trigger finger release on his left index finger. Reviewed the pre-operative plans with the patient. Risks and benefits of the procedure were fully explained, including but not limited to infection, incisional hypersensitivity, recurrence of triggering, neurovascular injury, continued pain, arthritis, stiffness, need for further surgery, re- injury, DVT, PE, general risks of anesthesia, and loss of limb or life. The patient understands all the risks and does wish to proceed with written consent. Follow up for 2 week post op or sooner if pain, swelling, numbness or associated symptoms, or concerns develop. All questions answered. Patient in agreement of plan. Clinical Quality Measures High Blood Pressure Screening/Follow Up High Blood Pressure follow-up Instructions: Recommended Blood Pressure Follow-Up Interventions: *Normal BP: No follow-up required for SBP < 120 mmHg and DBP < 80 mmHg: *Elevated BP: Patients with SBP of 120-129 mmHg and DBP < 80 mmHg: *Referral to Alternate/Primary Care Health Final Cigar And Box Examiner OR * Follow-up with rescreen in 2 to 6 months AND recommend nonpharmacologic interventions * First Hypertensive BP Reading: Patients with one elevated reading of SBP >=130 mmHg OR DBP >= 80 mmHg: *Referral to Alternate/Primary Care Health Professional OR *Follow-up with rescreen in >1 day and < 4 weeks AND recommend nonpharmacologic interventions *Second Hypertensive BP Reading: *Second Hypertensive BP Reading:Patients with second elevated reading of SBP of 130-139 mmHg or DBP of 80-89 mmHg (and not SBP >=140 or DBP >=90): * Referral to Alternate/Primary Care Health Final Cigar And Box Examiner OR *Nonpharmacological Intervention AND reassessment in 2-6 months AND an order for a laboratory test or ECG for hypertension *Second Hypertensive BP Reading: SBP >=140 or DBP >=90 *Referral to Alternate/Primary Care Healthcare Professional OR *Nonpharmacological Intervention AND BP lowering medication AND reassessment within 4 weeks AND an order for a laboratory test or ECG for hypertension BP Second Hypertensive Readings: For both questions related to the second hypertensive readings, orders for lab/ ECG need to be placed in addition to responding to the non-pharmacological and follow up questions. 07/25/23 1428 <Electronically signed by Femi Borruso DO> Date Femi Miller DO I have examined the patient and the H&P has been reviewed. There are no clinical changes since date of exam.
[2023-08-09] MEDS: Cefazolin 2 GM in 0.9% Normal Saline (100mL Bag) 100 ML IV (07:25)
[2023-08-09] MEDS: Lidocaine 1% /Epi 1:100 (20ml) 20 ML Vial (07:34)
--- NOTE | 2023-08-09 07:47 | PCM.OP.BLANK ---
Operative Report Date of Procedure: 08/09/23 Preoperative diagnosis; left index digit trigger finger Postoperative diagnosis; same Procedure: Left index digit A1 dat release Anesthesia: Local with MAC Tourniquet time; 10 minutes 250 mm Hg Complications: None Indication for procedure; This is a 73-year-old male with symptoms consistent with trigger finger. Risks benefits and alternatives were reviewed including risks of bleeding infection nerve tendon tissue damage need for further surgery and continued pain and symptoms, hypersensitivity to scar/incision and recurrence. Procedure; The patient was met in the preoperative holding area the operative extremity was identified by both patient and physician and was marked the patient was met by anesthesia and brought back to the operating room and transferred to the operating table in the supine position. Aanesthesia was started. A well-padded tourniquet was placed on the operative upper extremity. The patient was prepped and draped in the usual sterile fashion. A timeout was called to ensure the proper patient procedure and extremity were being contemplated. 0.5 percent Marcaine was injected into the incisional area. Esmarch was used tourniquet was inflated. 15 blade scalpel was used to make a longitudinal incision directly over the A1 dat was carried down through the subcutaneous tissue Alyssa retractors placed radial and ulnar protecting the digital nerves and a Ragnell retractor was used at the apex of the incision under direct visualization a deep blade scalpel was used to release the A1 dat. The wound was thoroughly irrigated and closed with 4-0 nylon vertical mattress edges. Dressing was applied in the form of Xeroform 4 x 4 web roll and an Rodolfo wrap. Patient tolerated the procedure well was brought back to the PACU in stable condition.
--- NOTE | 2023-08-09 07:48 | DCINST_ITS ---
Discharge Instructions Diet Discharge Diet: No restrictions Dressing / Incision Call your doctor if you observe: Shortness of breath and Chest pain Additional Dressing/Incision Instructions:: Ice and elevate operative extremity next 72 hours. Keep dressing on clean and dry for 72 hours then may remove and allow warm soapy water to rinse over incision but do not submerge until sutures are out. Then apply bandaid over incision and change daily. encourage finger range of motion. Not lift more than 1/2 pound. Minimize narcotic use only as needed and directed, may use OTC NSAID and Tylenol to supplement/substitute for pain control. Follow Up Care Please Follow Up With: Femi Miller DO When: 2 weeks Test Results: Test results from this visit will be discussed in further detail at your follow- up appointment, if applicable. Discharge Plan Admission Primary Reason for Your Visit: Left index finger A1 dat release Attending Provider: Femi Miller Primary Care Provider: Nikhil Coto Discharge Orders/Prescriptions Prescriptions: Continued gabapentin 300 mg capsule 600 mg PO Q4H hydrocodone-acetaminophen 5-325 mg tablet 1 tab PO 4X/DAY Patient Comments: TAKE 1 TABLET BY MOUTH FOUR TIMES DAILY FOR 28 DAYS tizanidine 4 mg tablet 4 mg PO QHS Patient Comments: Take 1 oral Every night at bedtime for 28 Days ibuprofen [Advil] 200 mg tablet 200 mg PO Q4H PRN (Reason: pain) Referrals / Follow Up: Nikhil Coto MD [Primary Care Provider] - Disposition Disposition (needs filled in before D/C Order can be placed): Home, Self Care
[2023-08-09 07:51] VITALS: BP 112/67; BP 157/96; PULSE 64; RESP 16; TEMP 36.7; O2SAT 95
[2023-08-09 07:55] VITALS: BP 104/78; BP 157/96; PULSE 65; RESP 16; O2SAT 95
[2023-08-09 08:00] VITALS: BP 133/83; BP 157/96; PULSE 64; RESP 16; O2SAT 93
[2023-08-09 08:05] VITALS: BP 157/96; PULSE 63; RESP 16; TEMP 36.5; O2SAT 97
[2023-08-09 08:17] VITALS: BP 157/96
== END 2023-08-09 08:49 | disposition home or self-care (01) ==
LOC: SDC 06:02 → AC 06:03
PROVIDERS: PCP Family Medicine; Referring Provider Orthopaedic Surgery; Visit Provider Orthopaedic Surgery
PROC: (CPT 26055; principal; 2023-08-09 07:20)
DX: M65.322 Trigger finger, left index finger (principal); F17.200 Nicotine dependence, unspecified, uncomplicated
CPT/HCPCS: 26055; 01810; J7120; J2405

== ENCOUNTER 2023-09-27 10:00 | Outpatient (CLI) | payer MEDICARE, SELFPAY ==
[2023-09-27 15:14] LABS: Absolute Lymphocyte Count 1.85 X10^3/uL (0.83-4.51); Basophil# 0.06 X10^3/uL; Basophil% 0.8 % (0-1); Eosinophil# 0.19 X10^3/uL; Eosinophils% 2.5 % (0-5); Hematocrit 37.2 % (40-54); Hemoglobin 12.8 g/dL (13.0-16.5); Lymphocyte # 1.85 X10^3/ul (0.83-4.51); Lymphocyte % 24.1 % (19-41); Mean Corp Hgb Conc 34.4 g/dL (32-36); Mean Corpuscular Hgb 32.7 pg (27.0-32.0); Mean Corpuscular Volume 94.9 fL (80-94); Mean Platelet Vol. 8.9 fl (6.2-12.0); Monocyte# 0.57 X10^3/uL; Monocyte% 7.4 % (0-10); NRBC Flagged by Analyzer 0 % (0-5); Neutrophil # 4.97 X10^3/uL (2.7-7.7); Neutrophil % 64.8 % (47-70); Platelet Count 298 K/mm3 (150-450); RBC Distribution Width CV 11.8 % (11.6-14.6); RBC Distribution Width SD 40.5 fl (35.1-43.9); Red Blood Count 3.92 M/mm3 (4.6-6.2); White Blood Count 7.7 K/mm3 (4.4-11.0)
[2023-09-27 15:18] LABS: International Normalized Ratio 1.1; Prothrombin Time (Protime)PT. 13.7 SECONDS (11.7-14.9)
[2023-09-27 15:19] LABS: Partial Thromboplast Time 51.3 Seconds (24.1-36.2)
[2023-09-27 15:36] LABS: Anion Gap 2 (5-15); BUN 13 mg/dL (7-18); BUN/Creat Ratio 15.7 RATIO (10-20); Calcium,Total 8.9 mg/dL (8.5-10.1); Chloride 107 mmol/L (98-107); Creatinine, Serum 0.83 mg/dL (0.70-1.30); EST Glomerular Filtration Rate 97 mL/min (>60); Est Glom Filt Rate - Afr Amer 118 mL/min (>60); Glucose 102 mg/dL (74-106); Potassium 3.2 mmol/L (3.5-5.1); Sodium Level 138 mmol/L (136-145)
[2023-09-27 15:45] LABS: Hemoglobin A1c 5.5 % (3.8-5.6)
[2023-09-27 16:25] LABS: Magnesium 2.1 mg/dL (1.6-2.6)
[2023-09-29 14:10] LABS: Fructosamine 247 umol/L (0-285)
== END 2023-10-11 23:59 | disposition home or self-care (01) ==
LOC: PAT 02-23 14:10
PROVIDERS: Anesthesiology; PCP Family Medicine; Referring Provider Orthopaedic Surgery; Visit Provider Orthopaedic Surgery
DX: Z01.818 Encounter for other preprocedural examination (principal)
CPT/HCPCS: 36415; 80048; 82985; 83036; 83735; 85025; 85610; 85730; 86850; 86900; 86901; 87077; 87081; 93005

== ENCOUNTER → 2024-02-14 | Outpatient (CLI) | payer MEDICARE, SELFPAY ==
[2024-02-14 16:17] LABS: Absolute Lymphocyte Count 1.81 X10^3/uL (0.83-4.51); Absolute Neutrophil Count 4.7 X10^3/uL (2.0-7.7); Basophil# 0.06 X10^3/uL; Basophil% 0.8 % (0-1); Eosinophil# 0.19 X10^3/uL; Eosinophils% 2.6 % (0-5); Hematocrit 38.2 % (40-54); Hemoglobin 12.6 g/dL (13.0-16.5); Lymphocyte # 1.81 X10^3/ul (0.83-4.51); Lymphocyte % 24.7 % (19-41); Mean Corpuscular Hgb 32.1 pg (27.0-32.0); Mean Corpuscular Volume 97.2 fL (80-94); Mean Platelet Vol. 9.1 fl (6.2-12.0); Monocyte# 0.51 X10^3/uL; Monocyte% 6.9 % (0-10); NRBC Flagged by Analyzer 0 % (0-5); Neutrophil # 4.74 X10^3/uL (2.7-7.7); Neutrophil % 64.6 % (47-70); Platelet Count 315 K/mm3 (150-450); RBC Distribution Width CV 11.9 % (11.6-14.6); RBC Distribution Width SD 42.5 fl (35.1-43.9); Red Blood Count 3.93 M/mm3 (4.6-6.2); White Blood Count 7.3 K/mm3 (4.4-11.0)
[2024-02-14 16:33] LABS: Prothrombin Time (Protime)PT. 13.3 SECONDS (11.7-14.9)
[2024-02-14 16:34] LABS: Partial Thromboplast Time 41.4 Seconds (24.1-36.2)
[2024-02-14 16:46] LABS: Anion Gap 4 (5-15); BUN 11 mg/dL (7-18); BUN/Creat Ratio 13.9 RATIO (10-20); Calcium,Total 8.7 mg/dL (8.5-10.1); Chloride 106 mmol/L (98-107); Creatinine, Serum 0.79 mg/dL (0.70-1.30); EST Glomerular Filtration Rate 103 mL/min (>60); Est Glom Filt Rate - Afr Amer 124 mL/min (>60); Glucose 99 mg/dL (74-106); Potassium 3.6 mmol/L (3.5-5.1); Sodium Level 138 mmol/L (136-145)
[2024-02-14 17:02] LABS: Hemoglobin A1c 5.7 % (3.8-5.6)
[2024-02-16 05:07] LABS: Fructosamine 252 umol/L (0-285)
== END | disposition home or self-care (01) ==
LOC: LAB 15:07
PROVIDERS: Anesthesiology; PCP Family Medicine; Referring Provider Orthopaedic Surgery; Visit Provider Orthopaedic Surgery
DX: Z01.818 Encounter for other preprocedural examination (principal)
CPT/HCPCS: 36415; 80048; 82985; 83036; 83735; 85025; 85610; 85730; 86850; 86900; 86901; 87077; 87081

== ENCOUNTER → 2024-06-29 | Outpatient (CLI) | payer MEDICARE, SELFPAY ==
--- NOTE | 2024-06-29 17:47 | CT_ITS ---
PROCEDURE: EXTREMITY LOWER WITHOUT CONTRA 06/29/2024 REASON FOR EXAM: 73-year-old male, TEMPLATING FOR LEFT TKA TECHNIQUE: Axial CT images of the left lower extremity obtained without intravenous contrast. Coronal and Sagittal reconstruction series were provided. One or more dose reduction techniques were used (e.g., Automated exposure control, adjustment of the mA and/or kV according to patient size, use of iterative reconstruction technique RADIATION DOSE SUMMARY: CTDlvol: 50 mGy DLP: 1500 mGycm COMPARISON: None. FINDINGS: Thin section CT imaging was obtained of the left lower extremity extending from the hip to the foot, for purposes of orthopedic surgical planning. Limited left lower extremity dictation as follows: Bones: No acute osseous fracture or aggressive osseous lesions. Joints: Severe tricompartmental arthrosis of the left knee. Mild arthrosis of the left hip joint. Small complex knee joint effusion. Soft Tissues: Moderate size left Christopher's cyst. Other: Fiducial markers within the prostate gland. Diverticulosis. CT/Extremity Lower without Contra IMPRESSION: 1. Left lower extremity CT for purposes of orthopedic surgical planning. 2. Severe tricompartmental arthrosis of the left knee with moderate-sized left Christopher's cysts and small joint effusion. Reading Location: [id number]
== END | disposition home or self-care (01) ==
LOC: CT 17:45
PROVIDERS: PCP Family Medicine; Referring Provider Orthopaedic Surgery; Visit Provider Orthopaedic Surgery
DX: M17.12 Unilateral primary osteoarthritis, left knee (principal)
CPT/HCPCS: 73700

== ENCOUNTER 2024-07-31 16:12 | Observation (INO) | payer MEDICARE, OTHER, SELFPAY ==
--- NOTE | 2024-07-12 12:29 | EKG12_ITS ---
Test Reason : PRE OP Blood Pressure : */* mmHG Vent. Rate : 63 BPM Atrial Rate : 63 BPM P-R Int : 154 ms QRS Dur : 116 ms QT Int : 408 ms P-R-T Axes : 81 50 56 degrees QTcB Int : 417 ms Normal sinus rhythm Incomplete right bundle branch block Borderline ECG Confirmed by RAMON ROMEO, KATHERINE ([id number]), order editor EDUAR COLLINS ([id number]) on 07/13/2024 7:00:09 AM Referred By: Femi Miller Confirmed By: KATHERINE NAVARRO MD
[2024-07-12 13:10] LABS: Absolute Lymphocyte Count 1.57 X10^3/uL (0.83-4.51); Absolute Neutrophil Count 7.1 X10^3/uL (2.0-7.7); Basophil# 0.04 X10^3/uL; Basophil% 0.4 % (0-1); Hematocrit 38.3 % (40-54); Lymphocyte # 1.57 X10^3/ul (0.83-4.51); Lymphocyte % 16.3 % (19-41); Mean Corp Hgb Conc 33.9 g/dL (32-36); Mean Corpuscular Hgb 32.3 pg (27.0-32.0); Mean Corpuscular Volume 95.3 fL (80-94); Mean Platelet Vol. 8.7 fl (6.2-12.0); Monocyte# 0.84 X10^3/uL; Monocyte% 8.7 % (0-10); NRBC Flagged by Analyzer 0 % (0-5); Neutrophil # 7.07 X10^3/uL (2.7-7.7); Neutrophil % 73.2 % (47-70); Platelet Count 323 K/mm3 (150-450); RBC Distribution Width CV 11.9 % (11.6-14.6); RBC Distribution Width SD 41.2 fl (35.1-43.9); Red Blood Count 4.02 M/mm3 (4.6-6.2); White Blood Count 9.7 K/mm3 (4.4-11.0)
[2024-07-12 13:30] LABS: International Normalized Ratio 0.9; Prothrombin Time (Protime)PT. 12.6 SECONDS (11.7-14.9)
[2024-07-12 13:31] LABS: Partial Thromboplast Time 44.7 Seconds (24.1-36.2)
[2024-07-12 14:21] LABS: Magnesium 2.1 mg/dL (1.5-2.2)
[2024-07-12 14:22] LABS: Anion Gap 12 (5-15); BUN 16 mg/dL (4-19); BUN/Creat Ratio 21.2 RATIO (10-20); Calcium,Total 9.4 mg/dL (7.6-11.0); Carbon Dioxide 24.5 mmol/L (21.0-32.0); Chloride 102 mmol/L (98-108); Creatinine, Serum 0.75 mg/dL (0.70-1.20); EST Glomerular Filtration Rate 96 (>60); Glucose 96 mg/dL (70-99); Potassium 3.6 mmol/L (3.3-5.1); Sodium Level 138 mmol/L (133-145)
[2024-07-12 14:33] LABS: Hemoglobin A1c 5.7 % (<=5.6)
--- NOTE | 2024-07-12 16:33 | PAT.ANESEVAL ---
Pre-Assessment Diagnosis/Proposed Procedure Planned Operative Procedure(s): LEFT TOTAL ARTHROPLASTY Anesthesia History Anesthesia History - printing sales representative: Anesthesia History - printing sales representative Hx Hospitalization No 07/11/24 14:46 Any Problems With Anesthesia Yes: SLOW TO AWAKEN 07/11/24 14:46 Cholinesterase deficiency No 07/11/24 14:46 You/Your Family Experience No 07/11/24 14:46 fever (hyperthermia) with Relationship Recent Exposure to Contagious No 08/09/23 06:36 Disease Does patient have nerve No 07/11/24 14:46 stimulator Patient instructed to have device shut off --Does patient have Pacemaker or ICD? When Was Last Pacemaker Check QUESTION #4 FULL TEXT: You/Your Family Experience fever (hyperthermia) with Anesthesia Last Oral Intake Last Oral intake: Last Oral Intake NPO since Meds taken in AM with sips of water? Meds patient instructed to take am of surgery PONV PONV - printing sales representative: PONV - printing sales representative Female No 07/11/24 14:46 HX of Motion Sickness No 07/11/24 14:46 HX of N/V After Surgery No 07/11/24 14:46 Non-Smoker Yes 07/11/24 14:46 Duration of Surgery greater Yes 07/11/24 14:46 than 60 minutes Number of Risk Factors 2 07/11/24 14:46 PONV Score Moderate Risk 07/11/24 14:46 Height & Weight Height & Weight: Anesthesia: Height & Weight Height 6 ft 08/09/23 06:41 Respiratory Assessment Respiratory Assessment - printing sales representative: Respiratory Tract Infection Hx - printing sales representative Hx Respiratory Tract Infection No 07/11/24 14:46 STOP Sleep Apnea STOP Sleep Apnea - printing sales representative: STOP Sleep Apnea - printing sales representative Hx Hypertension No 07/11/24 14:46 Hx Sleep Apnea No 07/11/24 14:46 CPAP BIPAP Do you snore loudly (louder Yes 07/11/24 14:46 than talking or can be heard Do you often feel tired/ Yes 07/11/24 14:46 fatigued/ sleepy during daytime? Has anyone observed you stop Yes 07/11/24 14:46 breathing during sleep? STOP Results Positive 07/11/24 14:46 QUESTION #5 FULL TEXT : Do you snore loudly (louder than talking or can be heard through closed doors)? Tobacco Use History Tobacco Use History - printing sales representative: Tobacco Use History - printing sales representative Tobacco Use Smoking Status Former smoker 07/11/24 14:46 Hx Tobacco Use No 07/11/24 14:46 Years Smoking Packs Smoked per Day Smoking Cessation Date was Yes - quit smoking within 15 07/11/24 14:46 within the last 15 years years Hx Smoking Cessation Date 04/04/18 07/11/24 14:46 Hx Smoking Cessation No 07/11/24 14:46 Counseling Hematologic Medial History Hematologic Hx - printing sales representative: Hematologic Medical Hx - application counselor Hx of Blood Transfusion No 07/11/24 14:46 Hx of Transfusion in last 3 No 07/11/24 14:46 Months Date of Last Transfusion (if within last 3 months) Ever experience any problems No 07/11/24 14:46 with transfusion(s)? Specify any problems Hx of Preganancy in last 3 N/A 07/11/24 14:46 Months Nurse Filling Out Transfusion DSCHRIBER 07/11/24 14:46 & Questions: Date: 07/11/24 07/11/24 14:46 Time: 14:48 07/11/24 14:46 Patient unable to answer at this time (ie. 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 Back pain History of IBS Former smoker History of stress test History of trigger finger Wears hearing aid Arthritis Migraine headache Injury of head and neck Leg cramps History of pain when walking RBBB Wears glasses Cancer Depression Anxiety Home Medications ?Medication ?Instructions ?Recorded ?Last Taken ?Type gabapentin 300 mg capsule 300 mg PO Q4H 08/24/21 08/09/23 01:30 History hydrocodone-acetaminophen 5-325mg 1 tab PO 4X/DAY 08/24/21 08/09/23 01:30 History 5mg-325mg tizanidine 4 mg tablet 4 mg PO QHS 06/08/23 08/08/23 History ibuprofen 200 mg tablet (Advil) 200 mg PO Q4H PRN pain 06/23/23 08/02/23 History Allergy/AdvReac Type Severity Reaction Status Date / Time No Known Allergies Allergy Verified 07/11/24 14:38 Family History Brother Cancer Mother Cancer COPD (chronic obstructive pulmonary disease) Surgical History (Updated 07/11/24 @ 14:56 by Destinee Brown) Hx of colonoscopy History of surgery History of cystoscopy Hx of hand surgery History of lumbar laminectomy H/O cervical spine surgery h/o bunionectomy Social History Smoking Status: Former smoker alcohol intake: never substance use type: does not use Audit: Pertinent Findings Pertinent Findings EKG Perinent findings: September 27, 2023. Normal sinus rhythm. Right bundle branch block. Recommendation Anesthesia Recommendation Anesthesia recommendation: OPTIMIZED for anesthesia
[2024-07-14 06:27] LABS: Fructosamine 270 umol/L (0-285)
[2024-07-31] VITALS (19 sets, daily range): BP systolic 106–151; BP diastolic 58–101; PULSE 61–87; RESP 12–18; TEMP 36.2–37; O2SAT 95–199; BMI 20.2
[2024-07-31] MEDS: Magnesium 1 GM over 15 mins IV (06:41)
[2024-07-31] MEDS: Lactated Ringers 1,000 ML 125 ML IV (06:42)
[2024-07-31] MEDS: Acetaminophen 500 MG Tablet 1000 MG PO ×3 (06:43→22:04)
[2024-07-31] MEDS: Gabapentin 600 MG Tablet PO (06:43)
[2024-07-31] MEDS: Scopolamine 1mg/72hr Patch 1 PATCH TD (06:44)
[2024-07-31] MEDS: Celecoxib 200 MG Capsule 400 MG PO (06:44)
[2024-07-31 06:56] LABS: Bedside Glucose 114 mg/dL (74-106)
--- NOTE | 2024-07-31 07:10 | PCM.PRE.AN2 ---
ASA Classification* ASA Classification ASA Classification: 2 Assessment & Plan Anesthesia* Anesthesia Assessment Anesthesia Assessment: Discussed sedation and/or anesthesia options, risks, benefits, and alternatives with patient/parents/legal guardian/POA. Questions invited. The patient/parents/legal guardian/POA seems to understand and agrees to proceed with anesthesia plan. Reviewed the physical assessment, medical history, allergy history and patient home medications list prior to surgery/procedure/anesthetic and documented any changes. Performed airway and anesthesia risk assessments. Anesthesia Type Anesthesia Type: Spinal and Block History Source History Obtained from:: Patient Anesthesia Focused Assessment* Temperature: 98.3 F Pulse Rate: 66 Blood Pressure: 119/83 Respiratory Rate: 16 Pulse Ox: 98 Oxygen Delivery Method: Room Air Airway Assessment Mouth opens: >3 cm Mallampati Score: I Focused Labs Anesthesia Preop lab: CBC WBC 9.7 K/mm3 (4.4-11.0) 07/12/24 12:07/12/24 RBC 4.02 M/mm3 (4.6-6.2) L 07/12/24 12:07/12/24 Hgb 13.0 g/dL (13.0-16.5) 07/12/24 12:07/12/24 Hct 38.3 % (40-54) L 07/12/24 12:07/12/24 Plt Count 323 K/mm3 (150-450) 07/12/24 12:49 07/12/24 CHEMISTRY Potassium 3.6 mmol/L (3.3-5.1) 07/12/24 12:07/12/24 Sodium 138 mmol/L (133-145) 07/12/24 12:49 07/12/24 Magnesium 2.1 mg/dL (1.5-2.2) 07/12/24 12:07/12/24 BUN 16 mg/dL (4-19) 07/12/24 12:07/12/24 Creatinine 0.75 mg/dL (0.70-1.20) 07/12/24 12:49 07/12/24 Glucose 96 mg/dL (70-99) 07/12/24 12:07/12/24 POC Glucose 114 mg/dL (74-106) H 07/31/24 06:07/31/24 COAG PT 12.6 SECONDS (11.7-14.9) 07/12/24 12:49 07/12/24 Pre-Assessment Diagnosis/Proposed Procedure Planned Operative Procedure(s): LEFT TOTAL ARTHROPLASTY Anesthesia History Anesthesia History - parole or probation officer: Anesthesia History - parole or probation officer Hx Hospitalization No 07/11/24 14:46 Any Problems With Anesthesia Yes: SLOW TO AWAKEN 07/11/24 14:46 Cholinesterase deficiency No 07/11/24 14:46 You/Your Family Experience No 07/11/24 14:46 fever (hyperthermia) with Relationship Recent Exposure to Contagious No 07/31/24 07:00 Disease Does patient have nerve No 07/11/24 14:46 stimulator Patient instructed to have device shut off --Does patient have Pacemaker No 07/31/24 07:00 or ICD? When Was Last Pacemaker Check QUESTION #4 FULL TEXT: You/Your Family Experience fever (hyperthermia) with Anesthesia Last Oral Intake Last Oral intake: Last Oral Intake NPO since 00:30 07/31/24 07:00 Meds taken in AM with sips of Yes 07/31/24 07:00 water? Meds patient instructed to take am of surgery PONV PONV - parole or probation officer: PONV - parole or probation officer Female No 07/11/24 14:46 HX of Motion Sickness No 07/11/24 14:46 HX of N/V After Surgery No 07/11/24 14:46 Non-Smoker Yes 07/11/24 14:46 Duration of Surgery greater Yes 07/11/24 14:46 than 60 minutes Number of Risk Factors 2 07/11/24 14:46 PONV Score Moderate Risk 07/11/24 14:46 Height & Weight Height & Weight: Anesthesia: Height & Weight Height 6 ft 07/31/24 07:00 Weight: 67.585 kg 07/31/24 07:00 Body Mass Index (BMI) 20.2 07/31/24 07:00 Respiratory Assessment Respiratory Assessment - parole or probation officer: Respiratory Tract Infection Hx - parole or probation officer Hx Respiratory Tract Infection No 07/11/24 14:46 STOP Sleep Apnea STOP Sleep Apnea - parole or probation officer: STOP Sleep Apnea - parole or probation officer Hx Hypertension No 07/11/24 14:46 Hx Sleep Apnea No 07/11/24 14:46 CPAP BIPAP Do you snore loudly (louder Yes 07/11/24 14:46 than talking or can be heard Do you often feel tired/ Yes 07/11/24 14:46 fatigued/ sleepy during daytime? Has anyone observed you stop Yes 07/11/24 14:46 breathing during sleep? STOP Results Positive 07/11/24 14:46 QUESTION #5 FULL TEXT : Do you snore loudly (louder than talking or can be heard through closed doors)? Tobacco Use History Tobacco Use History - parole or probation officer: Tobacco Use History - parole or probation officer Tobacco Use Smoking Status Former smoker 07/11/24 14:46 Hx Tobacco Use No 07/11/24 14:46 Years Smoking Packs Smoked per Day Smoking Cessation Date was Yes - quit smoking within 15 07/11/24 14:46 within the last 15 years years Hx Smoking Cessation Date 04/04/18 07/11/24 14:46 Hx Smoking Cessation No 07/11/24 14:46 Counseling Hematologic Medial History Hematologic Hx - parole or probation officer: Hematologic Medical Hx - swing driver Hx of Blood Transfusion No 07/11/24 14:46 Hx of Transfusion in last 3 No 07/11/24 14:46 Months Date of Last Transfusion (if within last 3 months) Ever experience any problems No 07/11/24 14:46 with transfusion(s)? Specify any problems Hx of Preganancy in last 3 N/A 07/11/24 14:46 Months Nurse Filling Out Transfusion DSCHRIBER 07/11/24 14:46 & Questions: Date: 07/11/24 07/11/24 14:46 Time: 14:48 07/11/24 14:46 Patient unable to answer at this time (ie. confused, unrespo /Reproduction History /Reproductive History - parole or probation officer: /Reproductive Hx- parole or probation officer Hx Now No 07/11/24 14:46 Gestational Age (in weeks): EDC: Hx Hx Para Hx Section SAB No 07/11/24 14:46 Active Medications Active Medications: Current Medications Generic Name Dose Route Start Last Admin Trade Name Freq PRN Reason Stop Dose Admin Acetaminophen 1,000 mg 07/31/24 07:30 07/31/24 06:43 Acetaminophen 500 Mg Tablet PO 07/31/24 07:31 1,000 mg X1 ONE Administration Celecoxib 400 mg 07/31/24 07:30 07/31/24 06:44 Celecoxib 200 Mg Capsule PO 07/31/24 07:31 400 mg X1 ONE Administration Dexamethasone Sodium Phosphate 10 mg 07/31/24 07:30 Dexamethasone 10 Mg/Ml Vial IV 07/31/24 07:31 X1 ONE Gabapentin 600 mg 07/31/24 07:30 07/31/24 06:43 Gabapentin 600 Mg Tablet PO 07/31/24 07:31 600 mg X1 ONE Administration Cefazolin Sodium 2 gm/ Sodium 110 mls @ 150 mls/hr 07/31/24 07:30 Chloride IV 07/31/24 08:13 PREOP ONE Tranexamic Acid 1,000 mg/ 110 mls @ 660 mls/hr 07/31/24 07:30 Sodium Chloride IV 07/31/24 07:39 X1 ONE Tranexamic Acid 1,000 mg/ 110 mls @ 660 mls/hr 07/31/24 07:30 Sodium Chloride IV 07/31/24 07:39 X1 ONE Lactated Ringer's 1,000 mls @ 125 mls/hr 07/31/24 07:30 07/31/24 06:42 IV 07/31/24 15:29 125 mls/hr .Q8H EYAL Administration Magnesium Sulfate 1 gm/ 102 mls @ 408 mls/hr 07/31/24 07:30 07/31/24 06:41 Dextrose IV 07/31/24 07:44 408 mls/hr X1 ONE Administration Lactated Ringer's 1,000 mls @ 15 mls/hr 07/31/24 06:15 IV .Q48H EYAL Insulin Human Lispro 1 - 6 unit 07/31/24 07:30 Insulin Lispro 100 Unit/Ml Insuln.Pen SC 07/31/24 18:00 Q4H PRN PRN BG>/= 180, SEE PROTOCOL Protocol Scopolamine HBr 1 patch 07/31/24 07:30 07/31/24 06:44 Scopolamine 1mg/72hr Patch TD 07/31/24 07:31 1 mg X1 ONE Administration PFSH Medical History (Updated 07/11/24 @ 14:56 by Destinee Brown) Walker as ambulation aid Restless legs 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 Back pain History of IBS Former smoker History of stress test History of trigger finger Wears hearing aid Arthritis Migraine headache Injury of head and neck Leg cramps History of pain when walking RBBB Wears glasses Cancer Depression Anxiety Home Medications ?Medication ?Instructions ?Recorded ?Last Taken ?Type gabapentin 300 mg capsule 300 mg PO Q4H 08/24/21 07/31/24 00:30 History hydrocodone-acetaminophen 5-325mg 1 tab PO 4X/DAY 08/24/21 07/31/24 00:30 History 5mg-325mg tizanidine 4 mg tablet 4 mg PO QHS 06/08/23 07/30/24 21:00 History ibuprofen 200 mg tablet (Advil) 200 mg PO Q4H PRN pain 06/23/23 08/02/23 History Allergy/AdvReac Type Severity Reaction Status Date / Time No Known Allergies Allergy Verified 07/31/24 06:56 Family History Brother Cancer Mother Cancer COPD (chronic obstructive pulmonary disease) Surgical History (Updated 07/11/24 @ 14:56 by Destinee Brown) Hx of colonoscopy History of surgery History of cystoscopy Hx of hand surgery History of lumbar laminectomy H/O cervical spine surgery h/o bunionectomy Social History Smoking Status: Former smoker alcohol intake: never substance use type: does not use Review of Systems (Anesthesia) ROS Narrative System reviewed and no additional complaints, except as documented. Physical Exam Const oriented x3 Neck full ROM Resp normal respiratory effort
--- NOTE | 2024-07-31 07:12 | PCM.HP.BLA ---
History and Physical Date of Admission: 07/31/24 [facility] [address] [place] [address] OFFICE VISIT Date of Service: 06/18/24 MR#: [id number] Acct: [id number] Name: ISAURA BUCK Rep #: [id number] : 1950 Provider: Dr. Femi Miller DO Age/Sex: 73/M Location: [facility] [place].[facility] Status: Signed Intake Vital Signs 08/08/2405:41 Height 6 ft Intake Visit Reasons: LEFT KNEE Chief Complaint: Left knee Desktop Manager Required: No Accompanied by: Self Is patient in pain?: Yes Pain scale (1-10): 8 Allergies No Known Allergies Allergy (Verified 06/18/24 14:38) Medications ?Medication ?Instructions ?Recorded ?Confirmed ?Type gabapentin 300 mg capsule 300 mg PO Q4H 08/24/21 06/18/24 History hydrocodone-acetaminophen 5-325mg 1 tab PO 4X/DAY 08/24/21 06/18/24 History 5mg-325mg tizanidine 4 mg tablet 4 mg PO QHS 06/08/23 06/18/24 History ibuprofen 200 mg tablet (Advil) 200 mg PO Q4H PRN pain 06/23/23 06/18/24 History Have you fallen in the past year?: Yes PFSH Medical History 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 Back pain History of IBS Former smoker History of edema History of stress test History of trigger finger Wears hearing aid Arthritis Sciatic leg pain Migraine headache Injury of head and neck Leg cramps History of pain when walking RBBB Wears glasses Cancer Depression Anxiety Surgical History History of cystoscopy Hx of hand surgery History of lumbar laminectomy H/O cervical spine surgery h/o bunionectomy Family History Brother CancerMother Cancer COPD (chronic obstructive pulmonary disease) Social History Smoking Status: Former smoker alcohol intake: never substance use type: does not use HPI LEFT KNEE Details: This documentation accurately reflects the service provided and the decisions made by me, Dr. Femi Miller, DO 06/18/24 0857. Part of today?s visit was documented by [ ], acting as scribe. ISAURA BUCK is a 73 year old M here today for left knee pain. Rates pain 8 out of ten today. Left knee pain radiates to left foot at times. Posterior left knee pain has worsened. Pain worse at night and difficulty sleeping. Pain effects activity and feels weaker. Updates new pain left low back radiates from left groin to foot. Frequent cramping posterior left thigh. Left knee surgery recently cancelled d/t blood work results. Requests to discuss. So we did request and receive paperwork from [facility] Dr. Yovanny Reece. Who recommended no preoperative anticoagulation and recommended Lovenox 30 mg subcu twice daily postoperatively. However mentioned surgery being done at tertiary care center. Ortho Exam General General: Yes no acute distress Neurologic: Yes alert and Yes oriented x3 Psychologic: Yes reasonable and appropriate Right Knee Patella Translation: 1 Left Knee Skin/Wound: Yes CDI, No ecchymosis, No erythema and No swelling Knee ROM: Yes ROM-Extension -20 to 0 (-3) and Yes ROM-Flexion 0-140 (128) Examination: Yes med jt line tenderness, No Crepitus and No Jenn's Test Stability: NML: Anterior Drawer, NML: Posterior Drawer, NML: Valgus 0, NML: Valgus 30, NML: Varus 0 and NML: Varus 30 Patella Translation: 1 Patella Grind: Yes Head: Normocephalic Atraumatic Chest: symmetrical rise, non-labored breathing, no audible wheeze Abdomen: no guarding, non-rigid Supplemental Info 02/15/2020 for [facility] left knee 01/30/2024 x-ray left knee: Significant left knee arthritis worse medial patellofemoral compartment. 08/09/2023 left index A1 dat release: Dr. Miller 07/12/2023 right middle A1 dat release: Dr. Miller 05/11/2023 EMG right upper extremity:Electrodiagnostic impression: This is a normal electrodiagnostic study of the right upper limb. There is no electrodiagnostic evidence for peripheral neuropathy, including carpal tunnel or cubital tunnel syndrome. There is no electrodiagnostic evidence for cervical radiculopathy. 01/03/2023 xray left knee: There is significant narrowing [id number] medial compartment there is moderate patellofemoral arthrosis 11/02/2021 MRI cervical spine: Anterior internal fixation C5-C6 and C7, multilevel degenerative endplate changes with decreased disc height, C2-C3 mild to moderate narrowing of the right neuroforamen secondary to disc osteophyte complex, C3-C4 moderate narrowing bilateral neuroforamina secondary to disc osteophyte complex , C6-C7 mild to moderate narrowing of the right neuroforamina secondary to disc osteophyte complex 07/21/2018 x-ray cervical spine: ACDF C5-C6-C7 moderate to severe degenerative disc disease C7- T1 Coding Level of Care Code Off vis,est,level 3 Diagnoses Primary osteoarthritis of left knee M17.12 Osteoarthritis type: primary Assessment and Plan Assessment and Plan (1) Left knee DJD: Status: Acute Qualifiers: Osteoarthritis type: primary Qualified Code(s): M17.12 - Unilateral primary osteoarthritis, left knee Plan Spoke with the patient the clearance from Dr Reece, the fresh foods cake decorator. He will need to be on Lovenox post op 30 mg twice daily. I would like to speak with Dr. Reece directly as he did indicate tertiary care may be appropriate and I would like to discuss this further with him. Upon talking with the doctor, we will know if we are able to proceed with surgery at [facility]. He will be unable to have spinal anesthesia due to the blood disorders. Further recommendations following my conversation with his fresh foods cake decorator . or sooner if pain, swelling, numbness or associated symptoms, or concerns develop. All questions answered. Patient in agreement of plan. Clinical Quality Measures Falls Risk Screening/Assistive Devices Have you fallen in the past year?: Yes 06/18/24 0315 <Electronically signed by Femi Miller DO> Date Femi Miller DO I have examined the patient and the H&P has been reviewed. There are no clinical changes since date of exam.
--- NOTE | 2024-07-31 07:30 | KNEE_PTH ---
PATIENT: ISAURA BUCK LOC: [facility] U#:[id number] AGE/SX: 73/M ROOM: [facility] RE07/31/[address]: Dr. Femi Miller DO : 1950 BED: 1 DIS: 08/02/2024 SPEC #: [id number] RECD: 07/31/24 13:45 STATUS: ZORAN REBora #: [id number] SHAKA: 07/31/24 07:[address]: Femi Miller DEPT: SURGICAL PATHOLOGY RECD BY: Henrique Simon ENTERED: 07/31/24 13:45 SP TYPE: TOTAL KNEE OTHR DR: Dr. Nikhil Coto MD Tissues: A - Knee, NOS Procedures: Decalcification bone/plaque Surgery Specimen Level IV HEADER OPERATION: CHAITANYA, left total knee replacement robotic arm assisted PRE-OP DIAGNOSIS: Left knee degenerative joint disease TISSUE SUBMITTED: A- Bone and soft tissue left knee MICROSCOPIC DIAGNOSIS A. Left knee, total arthroplasty: * Benign cartilage and bone with degenerative changes MICROSCOPIC DESCRIPTION Slides are reviewed. GROSS DESCRIPTION A. Received in formalin in a container labeled with the patient's name, date of , and bone and soft tissue L knee are multiple red-galvez and firm fragments of bone and soft tissue measuring 10.0 x 9.0 x 5.0 cm in aggregate. The specimen consists of, but is not limited to, medial/lateral condyle and tibial plateau. The resection margins are smooth, and firm and the cortical surfaces are pitted and granular with smooth possible eburnation. Sectioning reveals unremarkable firm surfaces. Artifacts Conservator sections of bone and soft tissue are submitted in A1 following decalcification. [facility] 07-31-2024 CPT:66704,[id number]
[2024-07-31] MEDS: Cefazolin 2 GM in 0.9% Normal Saline (100mL Bag) 100 ML IV ×3 (07:48→22:05)
[2024-07-31] MEDS: TXA 1000mg in NS100 100ml (IVPB at Incision) 660 MG IV (07:51)
[2024-07-31] MEDS: TXA 1000mg in NS100 100ml (IVPB at Closure) 660 MG IV (08:12)
[2024-07-31] MEDS: dexAMETHasone 10 MG/ML Vial IV (08:12)
[2024-07-31] MEDS: Epinephrine (1 mg/ml) 1 MG/ML VIAL (08:19)
[2024-07-31] MEDS: 0.9% Normal Saline (Pres. free 10 ML Vial (08:19)
[2024-07-31] MEDS: dexAMETHasone 4 MG/ML Vial (08:19)
[2024-07-31] MEDS: Bupivacaine 0.5% PF 10 ML VIAL (08:19)
--- NOTE | 2024-07-31 09:43 | RAD_ITS ---
PROCEDURE: KNEE 1 OR 2 VIEWS 07/31/2024 REASON FOR EXAM: POSTOP PACU TECHNIQUE: AP and crosstable lateral view(s) of the left knee COMPARISON: 01/30/2024 FINDINGS: Hardware: Interval total knee arthroplasty. Bones: No acute fracture. Joints: Status post total knee arthroplasty. soft tissues: Skin drew and subcutaneous emphysema consistent with recent surgery. Other: RAD/Knee 1 or 2 Views IMPRESSION: Status post recent total knee arthroplasty. Reading Location: [id number]
--- NOTE | 2024-07-31 09:45 | PCM.OPRPT ---
Operative Report (Standard) Operative Information Date of Procedure: 07/31/24 Pre-Operative Diagnosis: Left knee DJD Post-Operative Diagnosis: Same Surgery/Procedure Performed: Robotic assisted left total knee arthroplasty crepe sole scourer: Yes Database Administration Manager: Juan Ramon Westbrook Tasks completed by offset press assistant: Opening & closing Type of Anesthesia: General RN Documented Start/Stop Times: Operation Date: 07/31/24 07:30 Case Time Into Pre-Op 07/31/24 05:32 Anesthesia Start 07/31/24 07:32 Into Room 07/31/24 07:32 Procedure Start 07/31/24 08:00 Procedure End 07/31/24 09:46 Anesthesia End 07/31/24 09:54 Into Recovery 07/31/24 09:54 Out of Room 07/31/24 09:54 Procedure Start Time: 08:00 Procedure Stop Time: 09:46 Select all DRAINS/GRAFTS/IMPLANTS that apply: Prosthetic device Prosthetic device details: [place] triathlon Estimated Blood Loss: 125 Specimen collected: Yes Description of specimen(s) removed: Bone Description of surgery: Preoperative diagnosis: Left knee DJD Postoperative diagnosis: Same Procedure: Left total knee arthroplasty CT guided Robotic Assisted Implant: [place] triathlon press fit, femoral component size 4, tibial baseplate size 5, asymmetric patella size 38, polyethylene X3 size 10 CS Anesthesia: General With adductor canal block Tourniquet time: 12 minutes at 300 mmHg Complications: None Condition: Stable to PACU Estimated blood loss: 125 cc Laborer Carpentry Dock Juan Ramon Westbrook. My physician programs assistant was a vital part of this case. He was important in appropriate retraction during the case, and protection of soft tissues during procedure. His intimate knowledge of the case and my steps aided in safe and expedient completion of the procedure as well as appropriate position of the extremity during the case. He was also vital in assisting with closure under my direct supervision. Indication for procedure: This is a 73-year-old male with long standing degenerative joint disease of the knee who has failed conservative treatment and wished to proceed with elective total knee arthroplasty. Risk benefits and alternatives were reviewed including; risk of bleeding, infection, nerve artery and tissue damage, continued pain, postoperative stiffness, venous thromboembolism, need for postoperative rehabilitation, mechanical feel to the knee, and expected postoperative course. The pre- operative CT and templating was performed with component sizing. Procedure: The patient was met in the preoperative holding area. The operative extremity was identified by both patient and physician and was marked. Patient was met by anesthesia. An adductor canal block was placed by anesthesia preoperatively the patient was brought back to the operating room on a wheeled cart and transferred to the operating table in the supine position. Anesthesia was started. A well-padded tourniquet was placed on the operative extremity. The patient was prepped and draped in the usual sterile fashion. A timeout was called to ensure the proper patient procedure and extremity were being contemplated. An esmarch was used to exsanguinate the extremity. The tourniquet was inflated. A 10 blade scalpel was used to make a midline incision down through the skin and subcutaneous tissue. Skin retractors placed. Bovie and Aquamantis were used to perform meticulous hemostasis. full-thickness flaps were elevated medial and lateral along the joint capsule. A deep blade scalpel was used to perform a medial parapatellar arthrotomy. The knee was brought to full extension. A bovie was used to release the soft tissues off the most proximal aspect of the medial tibial plateau, a three-quarter inch curved osteotome was also used in this process. The infrapatellar fat pad was excised. The suprapatellar fat pad was excised partially anteriorolateraly and portion the anterioromedial pad was elevated from the femur. At this point our intra-articular femoral array was placed at a 45 degree angle proximal and posterior to the medial epicondyle. femoral checkpoint was placed at this time. Our tibial array was placed partially intra incisional 1 stab incision was made for the inferior pin with a 15 blade scaple, and pins were placed and attached to the tibial array , tibial checkpoint was placed in the proximal tibial metaphysis. Tourniquet was let down. At this point registration cummings were taken throughout the knee . Once the knee was registered we then tensioned the medial and lateral ligaments in extension and 90 degrees of flexion. We then used these numbers to adjust our components within parameters to balance the knee in both flexion and extension once this was done on our monitor we then proceeded with using the robotic arm to make our tibial plateau cut, anterior and posterior chamfer and distal femur cuts. we removed the cut fragments with the use of a bovie and Deyanira, we did use a lamina criminal attorney to insure we visualized and removed all posterior osteophytes and at this time also used the Aquamantis on the posterior joint capsule. we then trialed and achieved the desired plan with a well-balanced knee. we used the green probe to keysha the corresponding tibial rotation based on our CT template. Lug holes were drilled in the femur the tibia preparation was completed with the appropriate sized base plate pinned based on previous rotation keysha. An appropriate sized fin punch was used on the tibia and 4 corner drill was used for the press fit component and the patella was prepared by first using a caliper to ensure sufficient bone stock and a patellar reamer to remove the desired amount of bone. lug holes drilled for an asymmetric poly. We then brought the knee through range of motion with excellent patellar tracking. We thoroughly irrigated the knee. Trial components were removed a posterior capsular injection was preformed with our standard cocktail. In addition the aqua Mantis was also used to aid in hemostasis. Betadine rinse was allowed to sit and washed out completely. Components were press-fit into place. Aricept rinse was then used followed by several more liters of irrigation after it was allowed to sit. The joint capsule was closed with #1 Ethibond [id number] in the upper part of the arthrotomy and #1 Vicryl in the lower part of the arthrotomy. , Followed by 2-0 Vicryl in the subcutaneous tissues with drew in the skin. Arrays and checkpoints were removed prior to closure all counts were correct stab incisions were closed with a staple standard dressing in the form of Mepilex AG for the main incision and a small Mepilex over the pin holes. Thigh-high RHIANNA hose applied over top of dressing. Patient tolerated the procedure well and was directed to PACU in stable condition . There were no intraoperative complications. Surgical Findings: DJD knee Complications Complications: No Admit VTE Documentation VTE Mechan Device Prophylaxis: SCD's and Thigh High RHIANNA Hose
--- NOTE | 2024-07-31 09:50 | DCINST_ITS ---
Discharge Instructions Procedure Total Knee Diet Discharge Diet: No restrictions Activity Weight Bearing Status: Full weight bearing Dressing / Incision Call your doctor if you observe: Shortness of breath and Chest pain Additional Dressing/Incision Instructions:: Ice and elevate lower extremities 2 weeks while not ambulating. Ambulation is encouraged. Weight bearing as marcial ated. Use assistive devise for stability. Encourage FULL knee extension and flexion 1 time EVERY time you get up and down and MULTIPLE times per day. No showering until 72 hours after surgery. May begin showering postop day #3. Remove the dressing prior to shower and gently wash with warm water and antibacterial soap then pat dry and place abdominal pad (or plain gauze) and RHIANNA hose over top. If you decide not to begin showering 72 hrs post operatively and wish to sponge bath only, then you may leave dressing undisturbed for up to 1 week, but must remove prior to first shower. Do not submerge for 3 weeks. If not showering daily after the initial dressing is removed you must clean incision and change dressing daily after the dressing comes off, must come off by 7 days postop. Do not allow animals near the incision area. Keep clean. Follow anti-coagulation recommendations as prescribed. Start subcutaneous Lovenox twice a day beginning 7 AM morning after surgery *. Do not take any NSAIDs while on blood thinner. Follow-up with your rack production worker within 4 weeks postoperatively. do not take any additional narcotic pain medication other than what was prescribed on your surgery day without discussing with physician. Narcotic medication can be addictive. Do not drink alcohol while taking narcotics. Supplement narcotic prescription with acetaminophen 1000 mg 4 times a day. Start physical therapy. If you are not currently scheduled for physical therapy or you are unsure of appointment time please call office ANTHONY to arrange. Call Dr. Miller's office ) with any concerns. Follow Up Care Please Follow Up With: Femi Miller DO When: 2 weeks Test Results: Test results from this visit will be discussed in further detail at your follow- up appointment, if applicable. Discharge Plan Admission Primary Reason for Your Visit: Left total knee arthroplasty Attending Provider: Femi Miller Primary Care Provider: Nikhil Coto Instructions Print Language: Telugu Discharge Orders/Prescriptions Prescriptions: New oxycodone 5 mg tablet 5 - 10 mg PO Q4H PRN (Reason: pain) 7 Days Qty: 60 0RF cephalexin 500 mg capsule 1,000 mg PO Q8H Qty: 4 0RF Rx Instructions: Take 2 tabs before you go to bed and 2 tabs after 5 AM morning after surgery when you wake up acetaminophen 500 mg tablet 1,000 mg PO Q6H Qty: 90 0RF Continued gabapentin 300 mg capsule 300 mg PO Q4H tizanidine 4 mg tablet 4 mg PO QHS Patient Comments: Take 1 oral Every night at bedtime for 28 Days Held hydrocodone-acetaminophen 5-325 mg tablet 1 tab PO 4X/DAY Hold Instructions: Do not take in conjunction with postoperative narcotic given Patient Comments: TAKE 1 TABLET BY MOUTH FOUR TIMES DAILY FOR 28 DAYS ibuprofen [Advil] 200 mg tablet 200 mg PO Q4H PRN (Reason: pain) Hold Instructions: Do not take while on blood thinner, may resume after completion of blood thinner per the discretion of your rack production worker. Referrals / Follow Up: Nikhil Coto MD [Primary Care Provider] - Disposition Disposition (needs filled in before D/C Order can be placed): Home, Self Care
[2024-07-31] MEDS: Lactated Ringers 1,000 ML 999 ML IV (10:50)
[2024-07-31] MEDS: Ketorolac 30 MG/ML Syringe 15 MG IV (10:59)
--- NOTE | 2024-07-31 13:59 | PCM.POST.ANE ---
Anesthesia: Postop Eval I Current Vital Signs Temperature: 98 F Pulse Rate: 64 Blood Pressure: 115/68 Respiratory Rate: 18 Pulse Ox: 100 Oxygen Delivery Method: Room Air Assessment Airway patent: Yes Spontaneous unlabored respirations: Yes nausea: No Vomiting: No Anesthesia Complication: No Fluid Hydration Crystalloid volume administer (ml): 1,000 Total IV fluid infused: 1,000 Progress Note Anesthesia document: Postop Eval 1 completed: Yes
--- NOTE | 2024-07-31 17:01 | POSTOPAN2_ITS ---
Anesthesia Postop Eval I Sum Postop Eval Completion status Anesthesia document: Postop Eval 1 completed: Yes Anesthesia Postop Eval I Summary Anesthesia Postop Eval I Summary: Anesthesia Postop Eval I: Assessment Summary Airway patent Yes 07/31/24 14:01 DIRECTOR [email or web address] Spontaneous unlabored Yes 07/31/24 14:01 DIRECTOR [email or web address] respirations Mental status nausea No 07/31/24 14:02 DIRECTOR [email or web address] Vomiting No 07/31/24 14:02 DIRECTOR [email or web address] Anesthesia Postop Eval I: Fluid Summary Crystalloid volume administer 1,000 07/31/24 14:02 DIRECTOR [email or web address] (ml) Colloids volume administered ( ml) Blood Product volume administered (ml) Total IV fluid infused 1,000 07/31/24 14:02 DIRECTOR [email or web address] Anesthesia Postop Eval I: Summary Notes Anesthesia Complication No 07/31/24 14:02 DIRECTOR [email or web address] Anesthesia Complication Comment: Post-operative progress note Anesthesia: Postop Eval II Evaluation Mental status: Asleep Pain Level: 0 nausea: No Vomiting: No Complications Anesthesia Complication: No
--- NOTE | 2024-07-31 17:01 | PCM.POSTANE2 ---
Anesthesia Postop Eval I Sum Postop Eval Completion status Anesthesia document: Postop Eval 1 completed: Yes Anesthesia Postop Eval I Summary Anesthesia Postop Eval I Summary: Anesthesia Postop Eval I: Assessment Summary Airway patent Yes 07/31/24 14:01 AIRFRAME [email or web address] Spontaneous unlabored Yes 07/31/24 14:01 AIRFRAME [email or web address] respirations Mental status nausea No 07/31/24 14:02 AIRFRAME [email or web address] Vomiting No 07/31/24 14:02 AIRFRAME [email or web address] Anesthesia Postop Eval I: Fluid Summary Crystalloid volume administer 1,000 07/31/24 14:02 AIRFRAME [email or web address] (ml) Colloids volume administered ( ml) Blood Product volume administered (ml) Total IV fluid infused 1,000 07/31/24 14:02 AIRFRAME [email or web address] Anesthesia Postop Eval I: Summary Notes Anesthesia Complication No 07/31/24 14:02 AIRFRAME [email or web address] Anesthesia Complication Comment: Post-operative progress note Anesthesia: Postop Eval II Evaluation Mental status: Asleep Pain Level: 0 nausea: No Vomiting: No Complications Anesthesia Complication: No
[2024-07-31] MEDS: 0.9% Normal Saline (1000mL) 1,000 ML 125 ML IV (17:16)
[2024-07-31] MEDS: Gabapentin 300 MG Capsule PO ×2 (17:37→22:04)
[2024-07-31] MEDS: oxyCODONE 5 MG Tablet PO (18:36)
[2024-07-31] MEDS: tiZANidine HCl 2 MG Tablet 4 MG PO (22:04)
[2024-07-31] MEDS: Senna/Docusate Sodium 1 Tablet 2 TABLET PO (22:05)
[2024-08-01] MEDS: 0.9% Normal Saline (100mL Bag) 100 ML 15 ML IV (02:30)
[2024-08-01 02:35] VITALS: BP 138/74; PULSE 68; RESP 16; TEMP 36.6; O2SAT 97
[2024-08-01] MEDS: Gabapentin 300 MG Capsule PO ×6 (02:36→21:18)
[2024-08-01] MEDS: oxyCODONE 5 MG Tablet PO ×5 (02:36→18:30)
[2024-08-01] MEDS: Ondansetron 4 MG/2 ML Vial IV ×2 (02:43→12:46)
[2024-08-01] MEDS: 0.9% Saline Lock 10 ML Syringe IV ×3 (02:43→21:17)
[2024-08-01] MEDS: Acetaminophen 500 MG Tablet 1000 MG PO ×3 (06:30→21:17)
[2024-08-01] MEDS: Enoxaparin 30 MG/0.3 ML Syringe SC ×2 (06:31→21:17)
[2024-08-01] MEDS: Cefazolin 2 GM in 0.9% Normal Saline (100mL Bag) 100 ML IV ×2 (06:31→14:08)
[2024-08-01 06:35] VITALS: BP 113/68; PULSE 63; RESP 16; TEMP 36.6; O2SAT 96
[2024-08-01] MEDS: Ketorolac 15 MG/ML Vial IV ×2 (08:20→16:04)
[2024-08-01 08:49] VITALS: BP 133/61; PULSE 67; RESP 16; TEMP 36.6; O2SAT 99
[2024-08-01] MEDS: Senna/Docusate Sodium 1 Tablet 2 TABLET PO ×2 (10:39→21:16)
--- NOTE | 2024-08-01 10:46 | CASEMGMT ---
DUTCH RASHID Assessment Face to Face with patient for initial transition planning/care coordination assessment. DUTCH RASHID introduced self and role at [facility], pt voices understanding. Pt is A&Ox4 and is resting comfortably in the chair and is calm. Care providers, pharmacy, and demographics verified. Admitting dx: ERAS, Left TKR LACE Strata: 1 PCP: Nikhil Coto Specialists: Angela (Ortho), Kurt (PM) Preferred Pharmacy: [facility], [place] Insurance: [place] [employer] [facility] , [employer] [facility] Prescription Benefit: Yes LNOK: Mary Ricki (Cash), Herber Robison (SAIDA) Living Arrangements: Pt states that he lives with his friend/partner (that he does not want added to the file) in a 2 story home with a FFSU and ramp to enter ADLs/IADLs: Pt states that he is independent at baseline. Pt is currently requiring assistance, see therapy notes Transportation:Self, pt friend. Denies concerns DME: FWW, cane, shower chair. HHC/SNF: Denies history Pt?s goal: Home Plan: Pt initially had a DC order in that was revoked d/t the assistance the pt is now requiring. Plan is TBD but the pt states that he would like to return home once he is medically ready. Pt states that he has support at home through his partner, daughter, and son. Pt denies skilled HHC needs but states that he is interested in private duty aid. Pt is aware that insurance does not cover this. CM to provide resources. Pt is also set up with OP Tx starting 08/[address] Miller's office established. Pt plans to f/u with the orthopedic doctor in 2 weeks. Pt states that he feels safe with this plan for now. CM to follow pt progression in the hospital to help finalize safe DC planning. Pt denies further questions or concerns at this time. Report given to [facility] CM team. Viridiana Valencia RN, CM
--- NOTE | 2024-08-01 11:39 | PHA.DC.MC.R ---
Pharmacy [facility] has performed discharge medication reconciliation and counseling for this patient. 1. Acetaminophen 1000mg PO Q8 2. Cephalexin 1000mg PO Q8 for 2 doses 3. Oxycodone 5-10mg PO Q4H PRN pain - Hold home [place] The patient's discharge medication list was reviewed for discrepancies and discrepancies were resolved. The patient was counseled on the following discharge medications and changes in medications for homegoing were reviewed. The Reason for Use, instructions for use, and potential side effects were reviewed for all new medications. The patient's questions regarding all of their medications were answered. The patient was able to verbally demonstrate an understanding of their discharge medications. Patient counseled by pharmacy analyst, Shawn. Medications at Discharge Home Medications gabapentin 300 mg capsule 300 mg PO Q4H 08/24/21 hydrocodone-acetaminophen 5-325mg 5mg-325mg 1 tab PO 4X/DAY 08/24/21 Held on 07/31/24. Instructions: Do not take in conjunction with postoperative narcotic given tizanidine 4 mg tablet 4 mg PO QHS 06/08/23 ibuprofen 200 mg tablet (Advil) 200 mg PO Q4H PRN pain 06/23/23 Held on 07/31/24. Instructions: Do not take while on blood thinner, may resume after completion of blood thinner per the discretion of your acquisition marketing manager. acetaminophen 500 mg tablet 1,000 mg (2 x 500 mg) PO Q6H #90 tabs 07/31/24 cephalexin 500 mg capsule 1,000 mg (2 x 500 mg) PO Q8H #4 caps 07/31/24 oxycodone 5 mg tablet 5 - 10 mg (1 - 2 x 5 mg) PO Q4H PRN pain 7 days #60 tabs 07/31/24
--- NOTE | 2024-08-01 12:27 | PN.ORTHO_ITS ---
Subjective Subjective Seen and examined. Does not feel pain is adequately controlled with the oxycodone he was on chronic narcotics preoperatively. Is having some buckling with ambulation. Otherwise doing okay denies nausea vomit shortness of breath chest pain fevers or chills eating and drinking okay passing gas and urinating regularly. Objective Data Objective Data Vital Signs: Vital Signs Temp Pulse Resp BP Pulse Ox O2 Del Method O2 Flow Rate 98 F 67 16 133/61 H 99 Room Air 4 08/01/24 08:49 08/01/24 08:49 08/01/24 08:49 08/01/24 08:49 08/01/24 08:49 08/01/24 09:26 07/31/24 11:38 Oxygen Flow Rate (L/min) 4 Oxygen Delivery Method Room Air Weight: 149 lb Body Mass Index (BMI) 20.2 Intake & Output: Intake and Output for Last 24 Hours 07/30/24 07/31/24 08/01/24 23:59 23:59 23:59 Intake Total 3202 / 3202 1660 / 1660 Output Total 625 / 625 400 / 400 Balance 2577 / 2577 1260 / 1260 Lab / Micro Data 07/12/24 12:49 07/12/24 12:49 Micro: Microbiology 07/12/24 12:49 Swab (Method) Nasal Screen MRSA/MSSA - Final Radiography Diagnostic Testing: Radiology Impression Knee X-Ray 07/31/24 09:43 IMPRESSION: Status post recent total knee arthroplasty. Reading Location: [id number] Physical Exam Const alert, oriented x3 and no apparent distress General Appearance: cooperative Extremity Extremity Narrative: Left knee dressing clean dry intact compartments soft neurovascular intact EHL tibialis anterior gastrocsoleus intact station light touch palpable pulse Assessment & Plan Assessment/Plan (1) S/P total knee arthroplasty: QUALIFIERS: Laterality: left Qualified Code(s): Z96.652 - Presence of left artificial knee joint PLAN: Plan Postop day #1 left total knee arthroplasty PT OT weightbearing as tolerated encourage knee range of motion Was having buckling this morning we will see how he does with increased pain medication and second round of physical therapy if deemed safe by therapy for discharge will be discharged home today follow-up in the office 2 weeks Lovenox 30 mg twice daily subcu patient already has medication at home from his breakfast supervisor
--- NOTE | 2024-08-01 12:29 | EX.PCM.DISCH ---
Discharge Instructions Diet Discharge Diet: No restrictions Activity Weight Bearing Status: Full weight bearing Dressing / Incision Call your doctor if you observe: Shortness of breath and Chest pain Additional Dressing/Incision Instructions:: Ice and elevate lower extremities 2 weeks while not ambulating. Ambulation is encouraged. Weight bearing as tolerated. Use assistive devise for stability. Encourage FULL knee extension and flexion 1 time EVERY time you get up and down and MULTIPLE times per day. No showering until 72 hours after surgery. May begin showering postop day #3. Remove the dressing prior to shower and gently wash with warm water and antibacterial soap then pat dry and place abdominal pad (or plain gauze) and RHIANNA hose over top. If you decide not to begin showering 72 hrs post operatively and wish to sponge bath only, then you may leave dressing undisturbed for up to 1 week, but must remove prior to first shower. Do not submerge for 3 weeks. If not showering daily after the initial dressing is removed you must clean incision and change dressing daily after the dressing comes off, must come off by 7 days postop. Do not allow animals near the incision area. Keep clean. Follow anti-coagulation recommendations as prescribed. Start subcutaneous Lovenox twice a day beginning 7 AM morning after surgery. Do not take any NSAIDs while on blood thinner. Follow-up with your internet sales consultant within 4 weeks postoperatively. do not take any additional narcotic pain medication other than what was prescribed on your surgery day without discussing with physician. Narcotic medication can be addictive. Do not drink alcohol while taking narcotics. Supplement narcotic prescription with acetaminophen 1000 mg 4 times a day. Start physical therapy. If you are not currently scheduled for physical therapy or you are unsure of appointment time please call office ANTHONY to arrange. Call Dr. Miller's office ) with any concerns. Follow Up Care Please Follow Up With: Femi Miller DO Test Results: Test results from this visit will be discussed in further detail at your follow-up appointment, if applicable. Discharge Plan Admission Admit Date/Time: 07/31/24 16:12 Primary Reason for Your Visit: Left total knee arthroplasty Attending Provider: Femi Miller Primary Care Provider: Nikhil Coto Discharge Orders/Prescriptions Prescriptions: New oxycodone 5 mg tablet 5 - 10 mg PO Q4H PRN (Reason: pain) 7 Days Qty: 60 0RF cephalexin 500 mg capsule 1,000 mg PO Q8H Qty: 4 0RF Rx Instructions: Take 2 tabs before you go to bed and 2 tabs after 5 AM morning after surgery when you wake up acetaminophen 500 mg tablet 1,000 mg PO Q6H Qty: 90 0RF Continued gabapentin 300 mg capsule 300 mg PO Q4H tizanidine 4 mg tablet 4 mg PO QHS Patient Comments: Take 1 oral Every night at bedtime for 28 Days Held hydrocodone-acetaminophen 5-325 mg tablet 1 tab PO 4X/DAY Hold Instructions: Do not take in conjunction with postoperative narcotic given Patient Comments: TAKE 1 TABLET BY MOUTH FOUR TIMES DAILY FOR 28 DAYS ibuprofen [Advil] 200 mg tablet 200 mg PO Q4H PRN (Reason: pain) Hold Instructions: Do not take while on blood thinner, may resume after completion of blood thinner per the discretion of your internet sales consultant. Referrals / Follow Up: Nikhil Coto MD [Primary Care Provider] - Disposition Discharge Orders: Discharge Patient (Routine); Ordered 07/31/24 Ordered By: Dr. Femi Miller
--- NOTE | 2024-08-01 14:20 | CASEMGMT ---
DUTCH RASHID into pt room to provided private duty list per request. Pt has not called [facility] yet. DUTCH RASHID called while in room. Pt has an eval for PT set up for 08/03 at 2pm. Pt is aware and placed on dc instructions.
[2024-08-01 14:43] VITALS: BP 151/80; PULSE 67; RESP 16; TEMP 36.7; O2SAT 97
--- NOTE | 2024-08-01 15:41 | CASEMGMT ---
Met with patient to complete CALVILLO form. CALVILLO form explained to patient who voiced understanding and signed form. Original form placed in pt?s chart and copy provided to patient. Jojo Hernandez, Discharge Planning Asst
[2024-08-01 20:12] VITALS: BP 121/63; PULSE 62; RESP 16; TEMP 36.8; O2SAT 98
[2024-08-01] MEDS: tiZANidine HCl 2 MG Tablet 4 MG PO (21:16)
[2024-08-02] MEDS: oxyCODONE 5 MG Tablet PO ×4 (00:09→12:13)
[2024-08-02 02:19] VITALS: BP 108/65; PULSE 59; RESP 15; TEMP 36.9; O2SAT 97
[2024-08-02] MEDS: Gabapentin 300 MG Capsule PO ×3 (02:21→10:37)
[2024-08-02] MEDS: Acetaminophen 500 MG Tablet 1000 MG PO (05:34)
[2024-08-02] MEDS: Ensure Surgery 237 ML LIQUID PO ×2 (08:17→12:13)
[2024-08-02 08:20] VITALS: BP 131/73; PULSE 66; RESP 18; TEMP 37.1; O2SAT 97
[2024-08-02] MEDS: Ondansetron 4 MG/2 ML Vial IV (08:54)
[2024-08-02] MEDS: 0.9% Saline Lock 10 ML Syringe IV (08:55)
[2024-08-02] MEDS: Senna/Docusate Sodium 1 Tablet 2 TABLET PO (10:35)
[2024-08-02] MEDS: Enoxaparin 30 MG/0.3 ML Syringe SC (10:37)
--- NOTE | 2024-08-02 11:26 | PCM.PN.ORT ---
Subjective Subjective Seen and examined, Clifford is sitting up in chair with legs elevated, postop day 2 T[address] knee per Dr[address] Miller. No buckling with ambulation, has worked with PT and OT today. Feels ready to d/c home. Pain better controlled with 15 mg Oxycodone, elevation, ice. Wearing RHIANNA hose and ambulating iwth walker. Had dtr staying for post op period at home to help. Otherwise doing okay denies nausea, vomiting, shortness of breath, chest pain, fever or chills eating and drinking okay passing gas and urinating regularly. Objective Data Objective Data Vital Signs: Vital Signs Temp Pulse Resp BP Pulse Ox O2 Del Method O2 Flow Rate 98.8 F 66 18 131/73 H 97 Room Air 4 08/02/24 08:20 08/02/24 08:20 08/02/24 08:20 08/02/24 08:20 08/02/24 08:20 08/02/24 08:20 07/31/24 11:38 Oxygen Flow Rate (L/min) 4 Oxygen Delivery Method Room Air Weight: 149 lb Body Mass Index (BMI) 20.2 Intake & Output: Intake and Output for Last 24 Hours 07/31/24 08/01/24 08/02/24 23:59 23:59 23:59 Intake Total 3202 / 3202 1770 / 1770 500 / 500 Output Total 625 / 625 1750 / 2425 675 / 675 Balance 2577 / 2577 20 / -655 -175 / -175 Lab / Micro Data Attestation: I reviewed the patient's lab results. 07/12/24 12:49 07/12/24 12:49 Micro: Microbiology 07/12/24 12:49 Swab (Method) Nasal Screen MRSA/MSSA - Final Physical Exam Const alert, oriented x3 and no apparent distress General Appearance: cooperative Extremity normal capillary refill and no calf tenderness Extremity Narrative: Left knee dressing clean dry intact, compartments soft, distal neurovascular intact EHL tibialis anterior gastrocsoleus intact station light touch. Easily palpable PT and DP pulses present. Assessment & Plan Assessment/Plan (1) S/P total knee arthroplasty: QUALIFIERS: Laterality: left Qualified Code(s): Z96.652 - Presence of left artificial knee joint (2) Other acute postprocedural pain: PLAN: Plan Postop day #2 left total knee arthroplasty PT OT weightbearing as tolerated encourage knee range of motion, wheeled walker for support No buckling with PT today, feels ready for d/c home. Dtr to help at home. D/C meds at bedside. We discussed 1-3 Oxycodone every 4 hrs prn moderate to severe pain and decrease 1-2 as soon as sx beging improving. We discussed adequate po food and fluid intake, monitor bowel habits. Hx constipation, will send rx for stool softener or purchase OTC. 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 Miller, sooner for changes or concerns.
--- NOTE | 2024-08-02 12:12 | CASEMGMT ---
RN CM into pt room, pt states he has lovenox at home but he has not administered it to himself. Pt states he feels he can do this at home as he has been watching staff do this. Requested pt nurse to review prior to dc with pt. Pt denies any further homegoing needs. Pt feels safe to dc home and is aware of therapy that is set up.
[2024-08-02 13:34] VITALS: BP 152/91; PULSE 66; RESP 16; TEMP 37.1; O2SAT 96
== END 2024-08-02 14:20 | disposition home or self-care (01) ==
LOC: SDC 16:16 → MS3 16:16
PROVIDERS: Anesthesiology; Admitting Provider Orthopaedic Surgery; PCP Family Medicine; Referring Provider Orthopaedic Surgery; Visit Provider Orthopaedic Surgery
PROC: 0SRD0JZ Replacement of Left Knee Joint with Synthetic Substitute, Open Approach (ICD-10-PCS; CPT 27447; principal; 2024-07-31 07:00)
DX: M17.12 Unilateral primary osteoarthritis, left knee (principal); Z87.891 Personal history of nicotine dependence; Z79.899 Other long term (current) drug therapy; I45.19 Other right bundle-branch block; I83.813 Varicose veins of bilateral lower extremities with pain; M62.838 Other muscle spasm; Z85.9 Personal history of malignant neoplasm, unspecified; M54.50 Low back pain, unspecified
CPT/HCPCS: 27447; 01402; S2900; 64447; 36415; 73560; 80048; 82962; 82985; 83036; 83735; 85025; 85610; 85730; 86850; 86900; 86901; 87077; 87081; 88305; 88311; 93005; 94668; 97110; 97116; 97162; 97166; 97530; 97535; C1776; A4216; J2405; J3475

== ENCOUNTER 2024-10-01 14:00 | Outpatient (RCR) | payer MEDICARE, SELFPAY ==
--- NOTE | 2024-08-06 16:06 | HP.PTEVAL_ITS ---
Patient's Visit Information Visit Information Visit Information: ISAURA BUCK is a 74 year old M referred to Physical Therapy by Dr. Femi Miller DO with a diagnosis of L knee TKA 07/31/24. Date of Evaluation: 08/06/24 Physical Therapist: Demetrio Ojeda, DPT, OCS, CSCS Visit Plan Frequency: 3x /Week Duration: 4-6 Weeks Plan: 3x/week for 4-6 weeks for IE HEP: SLR abd, ext, flexion x10, QS, HS supine, seated HS, AP throughout day all others 3x/day, use of ice and encouraged regarding how well he is doing. Much happier at end. Vaso and ice for swelling management Treat with STM to L LE, patellar mobs and PROM and swelling management and stretch HS and quads, progressive strength o f L LE adn gait training to stairs/progression. Subjective Subjective: Dtr preseent today. L TK 07/31/24 and in hospital a couplee days. been swollen the whole time. Pain is 9/10 as he is cutting down on percoset. Percoset helped and taking less as he is running out of pills. Is running low on pills. HEP: LAQ, sated HS, AP, SLR, HS, QS 10x 3x/day. Icing with ice pack. Has compression hose, and elevates. Using wh walker to get around. has varicose veins. Lives with friend in one story right now, has basement. Ramp to get in. Dressing self , bathroom I, has walk in shower but needs to step over and has stool. Prior to surgery did not need walkeer. Retired since 2011. Spends day gardening and taking care of animals. has been feeding them. no reegular exercises. Has had pain for over a year or two. Surgery was put off from last September but bumped many times. Pain L knee: Pain Intensity (Out of 10): 6 Pain Intensity Range: 6 and 9 Objective Objective: Walks with wh walker slowly and complaining of pain and swelling back to PT area but good knee flexion and mod I gait. Trasnfer chair and bed well and I lifting L leg on its own. L knee aROM 0-90, and R is 0-135. pt moves L knee continually while sitting in chair and does so with ease. hip aROM WFL as is ankle B. compression garment in pllace and incision dressed with bandage appearing dry. has some hard edematous tissue around knee anterio and posterior and is mildly swollen at 16.5 inches at joint line and 19.5 6 inches above joint line. R knee is 14.5 at joint line. strength quad is 8# with pain L quad and 20# L HS. Able to SLR L with 4 degree quad lag 5x today, 3+ abd and ext hip strength L adn 4 on R. AP are good B and 4- L ankle vs 4 R Good balance with wh walker gait. 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 Goal Time Frame: 4-6 Weeks Rehabilitation Potential Physical Therapy Diagnosis: L knee pain and swelling weakness diminishing function Rehabilitation Potential: Good Anticipated Interventions Patient/Client Instruction: Educate patient on: Condition and Plan of Care For the Purpose of:: To decrease pain, To increase ROM, To improve nutrient delivery to tissue, To improve muscle performance and motor function, To increase tolerance to activity/condition/position and To improve gait and locomotor functions Therapeutic Exercise to Include: Strength training, Postural training, Fl exibilty training, Gait and locomotor training, Passive ROM and Active ROM For the Purpose of:: To decrease pain, To increase ROM, To improve nutrient delivery to tissue, To improve muscle performance and motor function, To increase tolerance to activity/condition/position and To improve ability of physical actions for home/community/work/leisure Manual Therapy Techniques to Include: Mobilization, Passive ROM and Soft tissue mobilization For the Purpose of:: To decrease pain, To decrease swelling/inflammation, To increase ROM and To improve nutrient delivery to tissue Cryotherapy (ice pack, ice massage): Yes Vasopneumatic device: Yes For the Purpose of:: To decrease pain and To decrease swelling/inflammation Text: Thank you for the opportunity to evaluate your patient. For Medicare and Medicare HMO plans, please review the plan of care and approve it. It will need to be FAXED BACK to us at [phone] for Medicare purposes. For Medicare only, by signing this I certify the plan of care. Please let me know if there are questions or concerns regarding this plan of care. Physician Signature: Date:
--- NOTE | 2024-09-11 16:27 | HP.PTREVAL_ITS ---
Re-Evaluation Intro: Dr. Femi Miller, DO, It has been my pleasure to treat ISAURA BUCK over the last 11 visits for L knee TKA 07/31/24. Please see the progress note below for an update on the physical therapy plan of care! Subjective Subjective: HEP: Basic AROM and SLR. Needs to get up stairs easier. Needs to carry water. Carrying birds. Needs to be stronger . Also has 8/10 pain at night on medial knee that kweps him up. Objective Objective/Function: 0-117 arom L knee. No tenderness L knee with some patellar stiffness in distal direction but otherwise good ROM. Points to particular spot that keeps him up at night but not overly tender. Walking without gait deviations, steps are weak with L and needs rail to ascend with L and descend with L safely. Plan Plan Plan: continue 6 visits in last 2 weeks of POC to progress to I home strength program. please teach WB strength LE and progreess to I with pics. Pt to work on ROM at home. May also do patellar mobs. may go to gym but focus on xercises he can eventually do at homee. Work on grass walking and bnding to garden. 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 Goal Time Frame: 4-6 Weeks Goal Progress: Progressing Anticipated Interventions Anticipated Interventions Patient/Client Instruction: Educate patient on: Condition and Plan of Care For the Purpose of:: To decrease pain, To increase ROM, To improve nutrient delivery to tissue, To improve muscle performance and motor function, To increase tolerance to activity/condition/position and To improve gait and locomotor functions Therapeutic Exercise to Include: Strength training, Postural training, Flexibilty training, Gait and locomotor training, Passive ROM and Active ROM For the Purpose of:: To decrease pain, To increase ROM, To improve nutrient delivery to tissue, To improve muscle performance and motor function, To increase tolerance to activity/condition/position and To improve ability of physical actions for home/community/work/leisure Manual Therapy Techniques to Include: Mobilization, Passive ROM and Soft tissue mobilization For the Purpose of:: To decrease pain, To decrease swelling/inflammation, To increase ROM and To improve nutrient delivery to tissue Cryotherapy (ice pack, ice massage): Yes Vasopneumatic device: Yes For the Purpose of:: To decrease pain and To decrease swelling/inflammation Re-Evaluation Ending Re-evaluation ending: Please do not hesitate to contact me at [phone] by phone or if you have questions or concerns regarding this new plan of care! Sincerely, Demetrio Ojeda, DPT, OCS, CSCS
--- NOTE | 2024-10-01 14:26 | HP.PTDCSUM_ITS ---
Discharge Summary D/C summary: It has been my pleasure to treat ISAURA BUCK referred by Dr. Femi Miller DO, with the diagnosis of L knee TKA 07/31/24 for a total of 16 visit(s). Discharge Date: 10/01/24 Please see the following information for a summary of their discharge status. Subjective Subjective: Doing well and ready to bee done. Sees doctor next week. Medial pain persists and bothers him lying down. Sleeping is not great all the time. But does some nights. Medial pain can still wake him up. Activities: does nto climb steps but will get had rails(uses briceno). Not sleeping in bedroom b/c of this. Not in a hurry to get back, likes Letty boy. Basic all I. Put shoes on himself. Retired. Enjoys birds and plants as hobbbies and has done them . Washing all cages now himself(4 cages) HEP: Doing HEP, sink exercises daily. Pain L knee: Pain Intensity (Out of 10): 0 Overall Improvement % Improvement: 90 Objective Objective/Function: walking normal, steps reciprocal with one rail strength 38# ext and 40# flxion 8 TUG, no AD. Goals Goal 1:: 0-120 aROM L knee to facilitiate ADLs and putting on socks himself Goal Progress: Goal Met Goal 2:: walk without AD community without gait deviations Goal Progress: Goal Met Goal 3:: steps recirpocally without rail Goal Progress: needs rail Goal 4:: I appropriate HEP to manage symptoms/care home HEP Goal Progress: Goal Met Goal 5:: back out in garden and taking care of dogs normally Goal Progress: Goal Met Goal 6:: Overall 90% back to normal adn pain 1/10 at worst. Goal Progress: Goal Met Plan Plan: d/c to HEP D/C Information d/c sentence: If there are questions or concerns regarding this patient's physical therapy, please feel free to call me at [phone]. Thank you for the referral of this patient. Sincerely, Demetrio Ojeda, DPT, OCS, CSCS Balance/Gait/Functional tests Balance/Special Test Scores Functional Gait Assessment Score: 25 % Disability: 16.6700 TUG Test Time Seconds: 8 WOMAC Total Score: 19 WOMAC Percentage: 80.2100 Improvement % Improvement: 90
== END 2024-10-01 19:00 | disposition home or self-care (01) ==
LOC: PT 14:00
PROVIDERS: PCP Family Medicine; Referring Provider Orthopaedic Surgery; Visit Provider Orthopaedic Surgery
DX: M17.12 Unilateral primary osteoarthritis, left knee (principal); Z96.652 Presence of left artificial knee joint
CPT/HCPCS: 97016; 97110; 97161; 97164; 97530

== ENCOUNTER → 2024-12-19 | Outpatient (CLI) | payer MEDICARE, SELFPAY ==
--- NOTE | 2024-12-19 17:40 | CT_ITS ---
PROCEDURE: ABDOMEN/PELVIS WITH CONTRAST 12/19/2024 REASON FOR EXAM: RLQ PAIN TECHNIQUE: Procedure Code: [id number] Modality: CT Procedure: ABDOMEN/PELVIS WITH CONTRAST Coronal and Sagittal reconstruction series were provided. CONTRAST: Isovue 370 VOLUME: 94 mL One or more dose reduction techniques were used (e.g., Automated exposure control, adjustment of the mA and/or kV according to patient size, use of iterative reconstruction technique. RADIATION DOSE SUMMARY: CTDlvol: 19+ 10 mGy DLP: 598 mGycm FINDINGS: The lung bases are clear. The peripheral soft tissues are unremarkable. Degenerative changes of the spine. Levoscoliosis. Moderate atherosclerosis. Normal caliber abdominal aorta. No suspicious lymphadenopathy. Hypodense liver suggestive of steatosis. The gallbladder is unremarkable. Calcifications in the pancreatic head which may represent prior pancreatitis. The spleen and adrenals are unremarkable. Symmetric enhancement of the bilateral kidneys. Small left kidney upper pole nonobstructive calculus. No hydroureteronephrosis. The urinary bladder is unremarkable. Prostatic beads are present. Normal caliber large and small bowel. Short-segment sigmoid colon wall thickening (series 2, image 88 of 133). This may represent nonspecific colitis or an underlying mass. Normal caliber appendix without surrounding inflammatory changes. CT/Abdomen/Pelvis WITH Contrast IMPRESSION: Sigmoid colon nonspecific colitis versus mass. Reading Location: [id number]
== END | disposition home or self-care (01) ==
LOC: CT 17:19
PROVIDERS: PCP Family Medicine; Referring Provider Family Medicine; Visit Provider Family Medicine
DX: R10.31 Right lower quadrant pain (principal)
CPT/HCPCS: 74177; Q9967